=== PATIENT | male | born 1950 | race Caucasian/White ===

== ENCOUNTER → 2018-03-02 08:00 | Outpatient (CLI) | payer MEDICARE, OTHER, SELFPAY | PROVIDERS: PCP Emergency Medicine; Visit Provider Urology | DX: R97.20 Elevated prostate specific antigen [PSA] (principal); N52.9 Male erectile dysfunction, unspecified | CPT/HCPCS: 99213 ==

== ENCOUNTER 2018-08-24 14:25 | Outpatient (CLI) | payer MEDICARE, OTHER, SELFPAY ==
[2018-08-25 10:21] LABS: PSA, Diagnostic 5.7 ng/ml (0-4.5)
== END 2018-08-24 14:45 ==
PROVIDERS: PCP Emergency Medicine; Visit Provider Urology
DX: R97.20 Elevated prostate specific antigen [PSA] (principal)
CPT/HCPCS: 36415; 84153

== ENCOUNTER → 2018-09-01 07:49 | Outpatient (BNVA) | payer MEDICARE, OTHER, SELFPAY | PROVIDERS: PCP Emergency Medicine; Visit Provider Urology | DX: N52.9 Male erectile dysfunction, unspecified (principal); R97.20 Elevated prostate specific antigen [PSA]; I10 Essential (primary) hypertension | CPT/HCPCS: 99213 ==

== ENCOUNTER → 2018-09-29 14:15 | Outpatient (BNVA) | payer MEDICARE, OTHER, SELFPAY | PROVIDERS: PCP Emergency Medicine; Visit Provider Urology | DX: N52.9 Male erectile dysfunction, unspecified (principal) | CPT/HCPCS: 99212; 96372 ==

== ENCOUNTER → 2018-10-12 08:23 | Outpatient (BNVA) | payer MEDICARE, OTHER, SELFPAY | PROVIDERS: PCP Emergency Medicine; Visit Provider Urology | DX: N52.9 Male erectile dysfunction, unspecified (principal) | CPT/HCPCS: 99212 ==

== ENCOUNTER 2019-02-22 15:10 | Outpatient (CLI) | payer MEDICARE, OTHER, SELFPAY ==
[2019-02-24 10:59] LABS: PSA, Diagnostic 6.9 ng/ml (0-4.5)
== END 2019-02-22 15:30 ==
PROVIDERS: PCP Emergency Medicine; Visit Provider Urology
DX: R97.20 Elevated prostate specific antigen [PSA] (principal)
CPT/HCPCS: 36415; 84153

== ENCOUNTER 2019-04-27 10:29 | Outpatient (CLI) | payer MEDICARE, OTHER, SELFPAY ==
[2019-04-27 13:42] LABS: Anion Gap 7.8 mmol/L (3-11); BUN 24 mg/dL (7-18); CO2 28.2 mmol/L (21.0-32.0); CREATININE 1.34 mg/dL (0.70-1.30); Calcium 8.9 mg/dL (8.5-10.1); Chloride 109 mmol/L (98-107); Estimated GFR 53.01 (mL/min/1.73m2); Glucose 109 mg/dL (70-100); Potassium 4.5 mmol/L (3.5-5.1); Sodium 145 mmol/L (136-145)
== END 2019-04-27 10:49 ==
PROVIDERS: Nurse Practitioner; PCP Emergency Medicine; Visit Provider Emergency Medicine
DX: I10 Essential (primary) hypertension (principal)
CPT/HCPCS: 36415; 80048

== ENCOUNTER 2019-04-29 09:34 | Outpatient (CLI) | payer MEDICARE, OTHER, SELFPAY ==
--- NOTE | 2019-04-29 09:30 | DI.RAD_ITS ---
EXAM: XR TIB/FIB LT INDICATION: lump on left tibia M79.89. COMPARISON: No exams were available for comparison TECHNIQUE: 2D digital imaging was performed. FINDINGS: Three views were obtained. A BB marker is placed over the anterior mid tibia on the lateral view at the site of the patient's reported palpable abnormality. No bony or soft tissue abnormality seen. I f there is a clinical suspicion of a soft tissue mass additional evaluation with MRI would be recomme nded. IMPRESSION:
== END 2019-04-29 09:54 ==
PROVIDERS: PCP Emergency Medicine; Visit Provider Nurse Practitioner
DX: R22.42 Localized swelling, mass and lump, left lower limb; M79.89 Other specified soft tissue disorders
CPT/HCPCS: 73590

== ENCOUNTER 2019-08-26 10:46 | Outpatient (CLI) | payer MEDICARE, OTHER, SELFPAY ==
[2019-08-27 09:15] LABS: PSA, Diagnostic 5.9 ng/mL (0.0-4.5)
== END 2019-08-26 11:06 ==
PROVIDERS: Nurse Practitioner Gerontology; PCP Emergency Medicine; Visit Provider Urology
DX: R97.20 Elevated prostate specific antigen [PSA] (principal); N40.1 Benign prostatic hyperplasia with lower urinary tract symptoms; N13.8 Other obstructive and reflux uropathy
CPT/HCPCS: 36415; 84153

== ENCOUNTER → 2019-08-31 11:16 | Outpatient (BNVA) | payer MEDICARE, OTHER, SELFPAY | PROVIDERS: PCP Emergency Medicine; Referring Provider Emergency Medicine; Visit Provider Urology | DX: R97.20 Elevated prostate specific antigen [PSA] (principal); N52.9 Male erectile dysfunction, unspecified | CPT/HCPCS: 99213 ==

== ENCOUNTER 2020-02-11 10:54 | Emergency (ER) | payer MEDICARE, OTHER, SELFPAY ==
--- NOTE | 2020-02-11 11:00 | DI.CT_ITS ---
EXAM: MR BRAIN WO/W CLINICAL HISTORY: Confusion, likely brain metastasis. TECHNIQUE: Multiplanar multisequence MRI was performed. COMPARISON: No exams were available for comparison FINDINGS: Noncontrast cranial CT was performed followed by brain MRI without and with contrast administration. The cranial CT shows a masslike lesion of the right frontal lobe. Additionally white matter edema is noted in the left frontal lobe. High attenuation is noted superiorly and medially in the right fron faizan lobe, this could represent hemorrhage or calcification on CT but susceptibility weighted imaging on MRI shows no evidence of hemorrhage or calcification. There are low-attenuation areas seen CT in the right frontal lobe which are multicentric. These are noted to be fluid filled on MRI and are lik vernell to represent necrosis. There is marked edema noted in left frontal white matter T2 weighted and FLAIR MRI and there is incre ased signal also seen in the right caudate nucleus and in the corpus callosum anteriorly. Post contrast MR imaging is limited by motion artifact but shows multicentric rim-like enhancement in the right frontal lobe surrounding the areas of apparent necrosis with additional enhancement in the right caudate nucleus and to a lesser degree the corpus callosum with questionable minimal areas of enhancement in left frontal lobe of the linear nature. No additional enhancing lesions identified in the brain. The orbital and temporal bone structures appear intact. No abnormality of the pituitary seen. There is normal flow void in the delari-mc-[id number] vasculature. Diffusion-weighted imaging sh ows no evidence of infarction. IMPRESSION: Findings suggesting right frontal lobe neoplasm in extending across the corpus callosum to the left f rontal lobe with additional involvement of right caudate nucleus. Findings as described would be mos t consistent with glioblastoma. Other neoplastic disorders including lymphoma would have to be consi dered. Additionally, the possibility of infectious or inflammatory process is not absolutely exclude d on this examination but would be less likely. Please correlate clinically. Tissue sampling is ind icated for diagnosis. DATA REPOSITORY:
[2020-02-11 11:01] VITALS: BP 132/90; PULSE 64; RESP 16; O2SAT 95
--- NOTE | 2020-02-11 11:45 | DI.CT_ITS ---
EXAM: CT CHEST/ABD/PEL W TECHNIQUE: CT angiography of the chest, abdomen and pelvis was performed with bolus infusion of 125 cc of Omnipaque 350. Axial CT angiography was performed with multi-slice acquisition and multi-planar and/or 3D reconstruc tions. COMPARISON: No exams were available for comparison FINDINGS: The lungs are clear. No pleural effusion. No evidence of pulmonary embolic disease. No thoracic aort ic dissection. No evidence of pulmonary neoplasm.. No mediastinal or hilar adenopathy. Tracheobronc hial tree appears intact. Vascular clips are noted in left upper quadrant.. No focal hepatic or renal abnormality seen apart from a small hepatic cyst and multiple renal cysts.. Gallbladder and bile ducts are CT normal. Pancreas is unremarkable. Spleen shows unremarkable early arterial phase pattern of enhancement. No abdominal aortic aneurysm or dissection. Major branches of the abdominal aorta appear normal. No a bdominal or pelvic adenopathy. . No significant abdominal wall hernia. No focal bowel pathology. IMPRESSION: No evidence of neoplastic disease of the chest abdomen or pelvis. Incidental findings as described. RADIATION DOSE DELIVERED: Total DLP Total DLP DATA REPOSITORY: All CT scans at this facility are submitted to the National Radiology Data Registry (NRDR) Dose Index Registry (DIR) with the [employer] (ACR). RADIATION OPTIMIZATION: All CT scans at this facility use at least one of these dose optimization te chniques: automated exposure control; mA and/or kV adjustment per patient size (includes targeted exa ms where dose is matched to clinical indication); or iterative reconstruction.
[2020-02-11 11:50] LABS: Abs Immature Grans 0.01 k/cumm (0.0-0.09); Absolute Basophil Count 0.02 k/cumm (0.0-0.2); Absolute Eosinophil Count 0.15 k/cumm (0.0-0.7); Absolute Lymphocyte Count 1.44 k/cumm (1.2-3.4); Absolute Monocyte Count 0.37 k/cumm (0.11-0.7); Absolute Neutrophil Count 3.47 k/cumm (1.2-6.7); Basophils % 0.4; Eosinophils % 2.7; HCT 40.7 % (40.0-50.0); HGB 14.2 g/dL (13.5-17.5); Immature Grans % 0.2 %; Lymphocytes % 26.4; Mean Corp. HGB Concentration 34.9 g/dL (32.0-36.0); Mean Corpuscular Hemoglobin 31.3 pg (27.0-33.0); Mean Corpuscular Volume 89.8 fL (80-95); Mean Platelet Volume 11.6 fL (8.0-11.0); Monocytes % 6.8; Neutrophils % 63.5; Platelet Count 159 x1000/uL (130-400); RBC 4.53 m/cumm (4.50-6.00); RBC Distribution Width 12.5 % (11.8-14.1); White Blood Cell Count 5.46 k/cumm (4.4-10.8)
[2020-02-11 12:06] LABS: ALT 22 U/L (16-63); AST 22 U/L (15-37); Albumin 3.6 g/dL (3.4-5.0); Alkaline Phosphatase 66 U/L (46-116); Anion Gap 7.1 mmol/L (3-11); BUN 21 mg/dL (7-18); Bilirubin, Total 0.7 mg/dL (0.2-1.0); CO2 28.9 mmol/L (21.0-32.0); CREATININE 1.33 mg/dL (0.70-1.30); Calcium 9.3 mg/dL (8.5-10.1); Chloride 105 mmol/L (98-107); Estimated GFR 53.47 (mL/min/1.73m2); Glucose 120 mg/dL (74-106); Potassium 3.7 mmol/L (3.5-5.1); Sodium 141 mmol/L (136-145); Total Protein 6.6 g/dL (6.4-8.2)
[2020-02-11 12:15] LABS: Bilirubin Negative (Negative); Blood Negative (Negative); Clarity Clear (Clear); Glucose Negative (Negative); Ketones Negative (Negative); Leukocyte Esterase Negative (Negative); Nitrite Negative (Negative); Urobilinogen 0.2 EU/dL (Up TO 0.2); pH 5.5 (5-8)
[2020-02-11] MEDS: Gadoterate meglumine 20 ML VIAL IV (13:57)
[2020-02-11 14:12] VITALS: BP 161/109; RESP 16; O2SAT 100
[2020-02-11] MEDS: Omnipaque 350 MG/ML 100 ML BTL IJ (14:18)
[2020-02-11 14:23] VITALS: BP 159/115; O2SAT 99
--- NOTE | 2020-02-11 14:54 | W.ED.GENAD ---
Discharge Plan Disposition Patient Disposition: HOME Condition: Fair Discharge Details Chief Complaint: HeadInjury Clinical Impression: Brain mass Primary Care Provider: Sunday Orellana ED Provider: Clare Luther Home Meds and New Rx's Prescriptions: New dexamethasone 4 mg tablet 4 mg PO BID Qty: 14 RF: 0 Continued allopurinol 100 mg tablet 200 mg PO DAILY Qty: 180 RF: 4 amlodipine 5 mg tablet 5 mg PO DAILY Qty: 90 RF: 4 Fish Oil 1 EACH capsule 2 ea PO DAILY RF: 0 docusate sodium [Colace] 100 MG capsule 100 mg PO BID Qty: 60 RF: 12 hydrochlorothiazide 25 mg tablet 25 mg PO DAILY Qty: 90 RF: 3 atorvastatin [Lipitor] 20 mg tablet 20 mg PO QPM Qty: 90 RF: 1 multivitamin [Daily Value] 1 EACH tablet 1 ea PO DAILY RF: 0 aspirin [Aspir-81] 81 MG tablet,delayed release (DR/EC) 81 mg PO DAILY RF: 0 glucosamine-chondroitin [Osteo Bi-Flex] 1 EACH tablet 2 ea PO DAILY RF: 0 magnesium amino acid chelate 27 MG tablet 66 mg PO HS RF: 0 Discharge Instructions Instructions: Dexamethasone (By mouth) Additional Instructions: You have a brain mass noted on your imaging. This is likely what is causing your confusion. I have spoken with Dr. Walker at [facility] [place] He is a neurosurgeon and will be reaching out to you in the next 48 hours to discuss treatment options and the findings on imaging further. If you have any questions, please feel free to have him paged [phone] He has recommended that you take steroids as prescribed to help with swelling. You were given your dosing here for this evening, next dose will be tomorrow morning. If you develop fever/chills, seizure activity or other new/worsening symptoms please seek care urgently once again. Otherwise, please discuss further with Dr. Walker and follow-up as advised Referrals: Sunday Orellana, [Primary Care Provider] - Discharge Data Discharge Date/Time-TO BE ENTERED AT DEPARTURE: 02/11/20 17:00 Medical Decision Making <CHRIS Mullins - Last Filed: 02/12/20 08:18> 69-year-old gentleman presents for potential cognitive change, confusion, progressive over the past week or so. Here in the ER he is appropriate, neurologically intact, examination unremarkable. He is currently asymptomatic. Given the complaint of change of cognition associated with a potential trauma last week, will obtain head CT for further evaluation. CT read by radiology as a masslike lesion of the right frontal lobe. Additionally white matter edema is noted in the left frontal lobe. High attenuation is noted superiorly and medially in the right frontal lobe. I spoke with radiology, they are recommending an MRI with and without contrast of the brain for further evaluation. Concern for metastatic disease. Given this we will also obtain CT of the chest, abdomen, pelvis to see if we can find a primary source. Laboratory values here in the ER unremarkable for emergent process. I spoke with radiology regarding the CT of abdomen, pelvis, chest, negative. MRI of brain with and without contrast reveals findings suggesting right frontal lobe neoplasm extending across the corpus callosum to the left frontal lobe with additional involvement of right caudate nucleus. Most consistent with a glioblastoma. Other neoplastic disorder such as lymphoma will have to be considered. Infection or inflammatory process is not absolutely excluded but less likely. CT findings, MRI findings, laboratory findings all discussed with patient and family. Images were pushed to [facility] and I have a call placed to neurosurgery for consultation and possible transfer if they feel that this is indicated. At shift change, care signed out to CHRIS Luther with the work-up here in the ER complete, neurosurgery consultation through [facility] pending. Medical Records Medical records reviewed: Yes I reviewed the patient's medical records. Lab Data Lab results reviewed: Yes I reviewed the patient's lab results. Lab results narrative: Laboratory Tests Range/Units 02/11/20 02/11/20 02/11/20 11:40 11:40 12:05 WBC (4.4-10.8) k/cumm 5.46 RBC (4.50-6.00) m/cumm 4.53 Hgb (13.5-17.5) g/dL 14.2 Hct (40.0-50.0) % 40.7 MCV (80-95) fL 89.8 MCH (27.0-33.0) pg 31.3 MCHC (32.0-36.0) g/dL 34.9 RDW (11.8-14.1) % 12.5 Plt Count (130-400) x1000/uL 159 MPV (8.0-11.0) fL 11.6 H Immature Gran % % 0.2 Neutrophils % 63.5 Lymphocytes % 26.4 Monocytes % 6.8 Eosinophils % 2.7 Basophils % 0.4 Absolute Neutrophils (1.2-6.7) k/cumm 3.47 Absolute Lymphocytes (1.2-3.4) k/cumm 1.44 Absolute Monocytes (0.11-0.7) k/cumm 0.37 Absolute Eosinophils (0.0-0.7) k/cumm 0.15 Absolute Basophils (0.0-0.2) k/cumm 0.02 Sodium (136-145) mmol/L 141 Potassium (3.5-5.1) mmol/L 3.7 Chloride (98-107) mmol/L 105 Carbon Dioxide (21.0-32.0) mmol/L 28.9 Anion Gap (3-11) mmol/L 7.1 BUN (7-18) mg/dL 21 H Creatinine (0.70-1.30) mg/dL 1.33 H Estimated GFR/1.73 m2 (mL/min/1.73m2) 53.47 Glucose (74-106) mg/dL 120 H Calcium (8.5-10.1) mg/dL 9.3 Total Bilirubin (0.2-1.0) mg/dL 0.7 AST (15-37) U/L 22 ALT (16-63) U/L 22 Alkaline Phosphatase (46-116) U/L 66 Total Protein (6.4-8.2) g/dL 6.6 Albumin (3.4-5.0) g/dL 3.6 Urine Color (Yellow) Yellow Urine Clarity (Clear) Clear Urine pH (5-8) 5.5 Ur Specific [place] (1.005-1.025) 1.020 Urine Protein (Negative) mg/dL Negative Urine Ketones (Negative) mg/dL Negative Urine Blood (Negative) Negative Urine Nitrite (Negative) Negative Urine Bilirubin (Negative) Negative Urine Urobilinogen (Up TO 0.2) EU/dL 0.2 Ur Leukocyte Esterase (Negative) Negative Urine Glucose (Negative) mg/dL Negative <CHRIS Kohler - Last Filed: 02/11/20 21:37> Care transition to myself from Jeffery Suarez PA-C. Please see his initial note regarding history, presentation and exam. In brief, patient presents today for evaluation after being noted to be confused by family members. CT MRI was completed showing large intracranial mass. The time I assume care, consultation with neurosurgery is pending. Consulted with Dr. Walker, neurosurgeon. He reviewed the imaging and feels that this most consistent with high grade glioblastoma. He recommends close follow up. He advised that he will call patient this weekend to review imaging and next steps. He should expect phone call from Dr. Walkre in the next 2 days he did recommend . Dexamethasone 4mg BID until seen by them. Can hold off on seizure prophylaxis at this time. [phone] and ask to page neurosurgery if there are any questions. This is recommendations with the patient and his family. We discussed new/worsening symptoms that should prompt emergent evaluation once again. They are aware of the follow-up plan. All the questions and concerns were addressed in agreement this plan. Initial dose of dexamethasone given here. HPI <CHRIS Mullins - Last Filed: 02/12/20 08:18> General Mode of arrival: ambulatory. Date/Time Provider Initiated Documentation: 02/11/20 11:05. Limitations to Documentation: no limitations. Information obtained by: patient and family. HPI Narrative: This is a 69-year-old male with a history of BPH, diverticulosis, hypertension, GERD, gout, hematuria, hyperlipidemia, skin cancer, presents to the ER for progressive confusion going on for at least 1 week. He did have a accident last week where he tipped his lawnmower, jumped off, landing on his left shoulder. At that time he denied any other injury, specifically hitting his head. He was evaluated for his shoulder and feels as though that is fine. Patient reports that he was around his family last night and they have concerns about his memory. Patient is otherwise asymptomatic. Denies headache, visual changes, neck pain, chest pain, shortness of breath abdominal pain, nausea, vomiting, incontinence, change of bowel or bladder function, numbness, tingling, weakness in his extremities. Family reports that he appears to be more forgetful, less talkative, just not acting like his self. Related Data Home Medications Medication Instructions Recorded Confirmed aspirin [Aspir-81] 81 mg PO DAILY 11/04/12 02/11/20 glucosamine-chondroitin [Osteo 2 ea PO DAILY 11/04/12 02/11/20 Bi-Flex] magnesium amino acid chelate 66 mg PO HS 11/04/12 02/11/20 multivitamin [Daily Value] 1 ea PO DAILY 11/04/12 02/11/20 Fish Oil 2 ea PO DAILY 02/01/14 02/11/20 docusate sodium [Colace] 100 mg PO BID #60 tab-cap 01/16/16 02/11/20 hydrochlorothiazide 25 mg tablet 25 mg PO DAILY #90 tab 05/19/19 02/11/20 allopurinol 100 mg tablet 200 mg PO DAILY #180 tab-cap 08/11/19 02/11/20 amlodipine 5 mg tablet 5 mg PO DAILY #90 tab-cap 08/11/19 02/11/20 atorvastatin 20 mg tablet 20 mg PO QPM #90 tab 10/26/19 02/11/20 dexamethasone 4 mg PO BID #14 tab 02/11/20 Previous Rx's Medication Instructions Recorded hydrochlorothiazide 25 mg tablet 25 mg PO DAILY #90 tab 05/19/19 allopurinol 100 mg tablet 200 mg PO DAILY #180 tab-cap 08/11/19 amlodipine 5 mg tablet 5 mg PO DAILY #90 tab-cap 08/11/19 atorvastatin 20 mg tablet 20 mg PO QPM #90 tab 10/26/19 dexamethasone 4 mg PO BID #14 tab 02/11/20 Allergies Allergy/AdvReac Type Severity Reaction Status Date / Time No Known Allergies Allergy Verified 02/11/20 11:06 General Stated Complaint: HeadInjury JOSIE: 2 Review of Systems <CHRIS Mullins - Last Filed: 02/12/20 08:18> Constitutional Constitutional: Denies fatigue, Denies fever(s), Denies headache(s) and Denies weakness Eyes Eyes: Denies change in vision ENT Ears, Nose, Mouth, and Throat: Denies headache(s), Denies neck pain and Denies sore throat Cardiovascular Cardiovascular: Denies chest pain and Denies dyspnea Respiratory Respiratory: Denies cough and Denies dyspnea Gastrointestinal Gastrointestinal: Denies abdominal pain, Denies nausea and Denies vomiting Genitourinary Genitourinary: Denies dysuria Musculoskeletal Musculoskeletal: Denies back pain, Denies neck pain, Denies numbness and Denies tingling Integumentary/Breasts Skin/Breast: Denies rash Neurologic Neurologic: Denies headache(s), Denies numbness, Denies tingling and Denies weakness Endocrine Endocrine: Denies fatigue Hematologic/Lymphatic Hematologic/Lymphatic: Denies easy bleeding and Denies easy bruising PFSH <CHRIS Mullins - Last Filed: 02/12/20 08:18> Medical History Actinic keratitis (Acute 06/07/14) LEFT CONFUCIANISM/FOREHEAD Age-related macular degeneration (Acute) Allergic rhinitis (Acute) BPH w urinary obs/LUTS (Acute 03/01/16) Cataract (Acute) Cervical disc prolapse with radiculopathy (Acute) diskectomy/fusion 2000 Diverticulosis of colon without diverticulitis (Acute) Elevated PSA (Acute 03/01/16) Essential hypertension (Acute 09/30/13) Weight and alcohol dependent Family hx of prostate cancer (Acute) Gastroesophageal reflux disease (Acute) HH; LAP JOSH Gout (Acute) Hematuria, unspecified (Acute) History of tobacco use (Acute) Hyperlipidemia (Acute) Neoplasm of unspecified nature of bone, soft tissue, and skin (Resolved 08/07/15) Obesity (Acute) Shoulder pain (Acute) right; full thickness tear Squamous cell carcinoma in situ of skin (Acute 08/15/14) Squamous cell carcinoma of neck (Acute 06/07/14) DR. THORPE; RIGHT SIDE OF NECK; LEFT SIDE OF FOREHEAD Surgical History Appendectomy Correction, Hammertoe RIGHT nasal surgery left nasal polypoid lesion removed Vasectomy Family History Mother Stroke Father Heart disease Sister No problems noted. Sister No problems noted. Sister No problems noted. Sister No problems noted. Daughter No problems noted. Daughter No problems noted. Maternal Grandfather Edema Heart disease Paternal Grandfather , ACCIDENTAL at age 49. No problems noted. Paternal Grandmother No problems noted. Maternal Grandmother Stroke Social History Smoking/Tobacco Use Status: Former Tobacco Use Quit Date: 09/26/87 Alcohol Intake: current Alcohol Intake frequency: 0-2 drinks per day Alcohol type: beer, wine and hard liquor Drug use: Never Substance use type: does not use Caregiver/Support person: No Household members: spouse Pets and animals: No Do you think of yourself as: straight/heterosexual Duration: 45-60 minutes/day Frequency: 1-2 times per week Vanita/Pentecostal: Hindu Special vanita needs: No Do you feel safe at home: Yes Do you feel safe in your relationship?: Yes Exam <CHRIS Mullins - Last Filed: 02/12/20 08:18> Const General: cooperative, healthy appearing, comfortable and no acute distress Orientation: alert, awake and oriented x3 HENMT Head: normal to inspection, normocephalic and atraumatic Ears: hearing grossly normal bilaterally, external ears normal, TM's normal bilaterally and EAC's normal Face and sinus: normal facial exam Mouth: moist mucous membranes Throat: posterior oropharynx normal Eyes General: appearance normal, both eyes and all related structures Alignment and Position: alignment normal Periorbital: periorbital findings normal Eyelids: eyelids normal Conjunctivae: conjunctivae normal Sclera: sclerae normal Cornea: corneas normal Pupils: PERRL EOM: EOM intact bilaterally Direct ophthalmoscopy: normal light reflex Neck Neck: normal visual inspection, full ROM, no lymphadenopathy, no meningeal signs, trachea midline, supple and nontender Resp Effort & Inspection: normal respiratory effort and able to speak in complete sentences Auscultation: clear to auscultation bilaterally Cardio Rate: regular rate Rhythm: regular rhythm GI Inspection: normal to inspection Palpation: soft and nontender Auscultation: normal bowel sounds Back/Spine/Pelvis Back: No back tenderness Skin General skin exam: no rashes or lesions noted Neuro General: patient alert, patient awake, patient oriented x3, moves all extremities and no focal motor deficits Cranial Nerves: CN's II-XI intact bilaterally Cognition: normal cognition Speech: speech normal Gait: normal gait Motor: muscle tone normal throughout, strength 5/5 throughout, no pronator drift, no movement abnormalities noted and no fasciculations Sensory Exam: no sensory deficits noted Coordination: [id number] test normal and Does not sway with eyes open Extrem General: normal to inspection, full ROM, capillary refill normal, no pedal edema and no calf tenderness Psych Appearance: grossly normal Mental Status: mental status grossly normal Course <CHRIS Mullins - Last Filed: 02/12/20 08:18> Vital Signs Vital signs: Vital Signs Pulse 64 02/11/20 11:01 Respiratory Rate 16 02/11/20 11:01 Blood Pressure 132/90 02/11/20 11:01 Pulse Oximetry 95 02/11/20 11:01 Temperature Source Skin 02/11/20 11:01 Pulse 64 02/11/20 11:01 Respiratory Rate 16 02/11/20 14:12 Respiratory Effort 02/11/20 14:12 Respiratory Depth Normal 02/11/20 14:12 Respiratory Pattern Normal 02/11/20 14:12 Blood Pressure 159/115 H 02/11/20 14:23 Blood Pressure Mean 126 02/11/20 14:12 Blood Pressure Position Sitting 02/11/20 14:12 Pulse Oximetry 99 02/11/20 14:23 Oxygen Delivery Method Room Air 02/11/20 14:23 Oxygen Flow Rate 0 02/11/20 14:23 Pain Level 0 02/11/20 11:01 Comment 02/11/20 11:01 Lab/Test Results Lab/Test Results: Laboratory Tests Range/Units 02/11/20 02/11/20 02/11/20 11:40 11:40 12:05 WBC (4.4-10.8) k/cumm 5.46 RBC (4.50-6.00) m/cumm 4.53 Hgb (13.5-17.5) g/dL 14.2 Hct (40.0-50.0) % 40.7 MCV (80-95) fL 89.8 MCH (27.0-33.0) pg 31.3 MCHC (32.0-36.0) g/dL 34.9 RDW (11.8-14.1) % 12.5 Plt Count (130-400) x1000/uL 159 MPV (8.0-11.0) fL 11.6 H Immature Gran % % 0.2 Neutrophils % 63.5 Lymphocytes % 26.4 Monocytes % 6.8 Eosinophils % 2.7 Basophils % 0.4 Absolute Neutrophils (1.2-6.7) k/cumm 3.47 Absolute Lymphocytes (1.2-3.4) k/cumm 1.44 Absolute Monocytes (0.11-0.7) k/cumm 0.37 Absolute Eosinophils (0.0-0.7) k/cumm 0.15 Absolute Basophils (0.0-0.2) k/cumm 0.02 Sodium (136-145) mmol/L 141 Potassium (3.5-5.1) mmol/L 3.7 Chloride (98-107) mmol/L 105 Carbon Dioxide (21.0-32.0) mmol/L 28.9 Anion Gap (3-11) mmol/L 7.1 BUN (7-18) mg/dL 21 H Creatinine (0.70-1.30) mg/dL 1.33 H Estimated GFR/1.73 m2 (mL/min/1.73m2) 53.47 Glucose (74-106) mg/dL 120 H Calcium (8.5-10.1) mg/dL 9.3 Total Bilirubin (0.2-1.0) mg/dL 0.7 AST (15-37) U/L 22 ALT (16-63) U/L 22 Alkaline Phosphatase (46-116) U/L 66 Total Protein (6.4-8.2) g/dL 6.6 Albumin (3.4-5.0) g/dL 3.6 Urine Color (Yellow) Yellow Urine Clarity (Clear) Clear Urine pH (5-8) 5.5 Ur Specific [place] (1.005-1.025) 1.020 Urine Protein (Negative) mg/dL Negative Urine Ketones (Negative) mg/dL Negative Urine Blood (Negative) Negative Urine Nitrite (Negative) Negative Urine Bilirubin (Negative) Negative Urine Urobilinogen (Up TO 0.2) EU/dL 0.2 Ur Leukocyte Esterase (Negative) Negative Urine Glucose (Negative) mg/dL Negative Sign Out <CHRIS Mullins - Last Filed: 02/12/20 08:18> Sign Out Data: Sign Out Comment: MRI with likely neoplasm of the brain. Pending neurosurgery consultation at [facility] Last updated by Cory Suarez PA at 02/11/20 16:04
[2020-02-11 15:45] VITALS: BP 149/92; RESP 17; O2SAT 99
[2020-02-11] MEDS: Dexamethasone 4 MG TAB PO (16:53)
== END 2020-02-11 17:00 | disposition home or self-care (01) ==
PROVIDERS: Physician Assistant; Emergency Provider Physician Assistant; PCP Emergency Medicine
DX: R41.0 Disorientation, unspecified (principal); R90.0 Intracranial space-occupying lesion found on diagnostic imaging of central nervous system; I10 Essential (primary) hypertension
CPT/HCPCS: 36415; 70553; 74177; 80053; 99285; 70450; 71260; 81003; 85025; J3490; J8540

== ENCOUNTER 2020-03-03 01:55 | Outpatient (CLI) | payer MEDICARE, OTHER, SELFPAY ==
[2020-03-06 09:51] LABS: PSA, Diagnostic 12.2 ng/mL (0.0-4.5)
== END 2020-03-03 02:15 ==
PROVIDERS: Urology; PCP Emergency Medicine; Visit Provider Emergency Medicine
DX: R97.20 Elevated prostate specific antigen [PSA] (principal)
CPT/HCPCS: 36415; 84153

== ENCOUNTER 2020-03-03 14:35 | Outpatient (CLI) | payer MEDICARE, OTHER, SELFPAY ==
[2020-03-03 15:06] LABS: Abs Immature Grans 0.24 10^3/uL (0.0-0.06); Absolute Basophil Count 0.01 10^3/uL (0.0-0.2); Absolute Eosinophil Count 0.04 10^3/uL (0.0-0.7); Basophils % 0.1; Eosinophils % 0.3; HCT 38.5 % (40.0-50.0); HGB 12.8 g/dL (13.5-17.5); Immature Grans % 1.8; Lymphocytes % 11.9; MCH 30.7 pg (27.0-33.0); MCHC 33.2 % (32.0-36.0); MCV 92.3 fL (80-95); Monocytes % 4.6; Neutrophils % 81.3; Nucleated RBC 0 %; Platelet Count 130 10^3/uL (130-400); RBC 4.17 10^6/uL (4.36-5.78); RDW 12.1 % (11.8-14.1); RDW-SD 41.1 fL; WBC 13.16 10^3/uL (4.4-10.8)
[2020-03-03 15:08] LABS: Absolute Lymphocyte Count 1.57 10^3/uL (1.2-3.4); Absolute Monocyte Count 0.61 10^3/uL (0.1-0.8)
== END 2020-03-03 14:55 ==
PROVIDERS: PCP Emergency Medicine
DX: C71.9 Malignant neoplasm of brain, unspecified (principal); D69.6 Thrombocytopenia, unspecified; R97.20 Elevated prostate specific antigen [PSA]
CPT/HCPCS: 36415; 84153; 85025

== ENCOUNTER 2020-03-10 03:38 | Outpatient (CLI) | payer MEDICARE, OTHER, SELFPAY ==
[2020-03-10 09:40] LABS: Abs Immature Grans 0.09 10^3/uL (0.0-0.06); Absolute Basophil Count 0.03 10^3/uL (0.0-0.2); Absolute Eosinophil Count 0.14 10^3/uL (0.0-0.7); Absolute Lymphocyte Count 1.32 10^3/uL (1.2-3.4); Absolute Neutrophil Count 5.08 10^3/uL (1.2-6.7); Basophils % 0.4; HCT 36.8 % (40.0-50.0); HGB 12.6 g/dL (13.5-17.5); Immature Grans % 1.3; Lymphocytes % 18.7; MCH 31.1 pg (27.0-33.0); MCHC 34.2 % (32.0-36.0); MCV 90.9 fL (80-95); Monocytes % 5.7; Neutrophils % 71.9; Nucleated RBC 0 %; Platelet Count 166 10^3/uL (130-400); RBC 4.05 10^6/uL (4.36-5.78); RDW 12.1 % (11.8-14.1); WBC 7.06 10^3/uL (4.4-10.8)
== END 2020-03-10 03:58 ==
PROVIDERS: PCP Emergency Medicine; Visit Provider Internal Medicine
DX: C71.9 Malignant neoplasm of brain, unspecified (principal); D69.6 Thrombocytopenia, unspecified
CPT/HCPCS: 36415; 85025

== ENCOUNTER 2020-03-16 12:33 | Outpatient (CLI) | payer MEDICARE, OTHER, SELFPAY ==
[2020-03-16 14:40] LABS: Abs Immature Grans 0.06 10^3/uL (0.0-0.06); Absolute Basophil Count 0.02 10^3/uL (0.0-0.2); Absolute Eosinophil Count 0.25 10^3/uL (0.0-0.7); Absolute Lymphocyte Count 1.79 10^3/uL (1.2-3.4); Absolute Monocyte Count 0.48 10^3/uL (0.1-0.8); Absolute Neutrophil Count 3.58 10^3/uL (1.2-6.7); Basophils % 0.3; HCT 35.3 % (40.0-50.0); HGB 11.9 g/dL (13.5-17.5); MCH 30.7 pg (27.0-33.0); MCHC 33.7 % (32.0-36.0); MCV 91.2 fL (80-95); MPV 10.6 fL (8.0-11.0); Monocytes % 7.8; Neutrophils % 57.9; Nucleated RBC 0 %; Platelet Count 192 10^3/uL (130-400); RBC 3.87 10^6/uL (4.36-5.78); RDW 12.2 % (11.8-14.1); RDW-SD 39.9 fL; WBC 6.18 10^3/uL (4.4-10.8)
== END 2020-03-16 12:53 ==
PROVIDERS: PCP Emergency Medicine; Visit Provider Emergency Medicine
DX: C71.9 Malignant neoplasm of brain, unspecified (principal); D69.6 Thrombocytopenia, unspecified
CPT/HCPCS: 36415; 85025

== ENCOUNTER 2020-03-23 04:29 | Outpatient (CLI) | payer MEDICARE, OTHER, SELFPAY ==
[2020-03-23 12:38] LABS: Abs Immature Grans 0.11 10^3/uL (0.0-0.06); Absolute Basophil Count 0.02 10^3/uL (0.0-0.2); Absolute Eosinophil Count 0.03 10^3/uL (0.0-0.7); Absolute Lymphocyte Count 0.96 10^3/uL (1.2-3.4); Absolute Monocyte Count 0.27 10^3/uL (0.1-0.8); Absolute Neutrophil Count 8.16 10^3/uL (1.2-6.7); Basophils % 0.2; Eosinophils % 0.3; HCT 34.7 % (40.0-50.0); HGB 12.2 g/dL (13.5-17.5); Immature Grans % 1.2; Lymphocytes % 10.1; MCH 31.1 pg (27.0-33.0); MCHC 35.2 % (32.0-36.0); MCV 88.5 fL (80-95); MPV 11.2 fL (8.0-11.0); Monocytes % 2.8; Neutrophils % 85.4; Nucleated RBC 0 %; Platelet Count 178 10^3/uL (130-400); RBC 3.92 10^6/uL (4.36-5.78); RDW 12.5 % (11.8-14.1); RDW-SD 39.1 fL; WBC 9.55 10^3/uL (4.4-10.8)
== END 2020-03-23 04:49 ==
PROVIDERS: PCP Emergency Medicine; Visit Provider Internal Medicine
DX: C71.9 Malignant neoplasm of brain, unspecified (principal); D69.6 Thrombocytopenia, unspecified
CPT/HCPCS: 36415; 85025

== ENCOUNTER 2020-03-30 04:13 | Outpatient (CLI) | payer MEDICARE, OTHER, SELFPAY ==
[2020-03-30 12:51] LABS: Abs Immature Grans 0.23 10^3/uL (0.0-0.06); Absolute Basophil Count 0.03 10^3/uL (0.0-0.2); Absolute Lymphocyte Count 0.98 10^3/uL (1.2-3.4); Absolute Monocyte Count 0.21 10^3/uL (0.1-0.8); Absolute Neutrophil Count 9.19 10^3/uL (1.2-6.7); Basophils % 0.3; HCT 36.8 % (40.0-50.0); HGB 12.6 g/dL (13.5-17.5); Immature Grans % 2.2; Lymphocytes % 9.2; MCH 31.1 pg (27.0-33.0); MCHC 34.2 % (32.0-36.0); MCV 90.9 fL (80-95); MPV 11.9 fL (8.0-11.0); Neutrophils % 86.3; Nucleated RBC 0 %; Platelet Count 162 10^3/uL (130-400); RBC 4.05 10^6/uL (4.36-5.78); RDW 13.1 % (11.8-14.1); WBC 10.64 10^3/uL (4.4-10.8)
== END 2020-03-30 04:33 ==
PROVIDERS: PCP Emergency Medicine; Visit Provider Internal Medicine
DX: C71.9 Malignant neoplasm of brain, unspecified (principal); D69.6 Thrombocytopenia, unspecified
CPT/HCPCS: 36415; 85025

== ENCOUNTER 2020-04-06 02:33 | Outpatient (CLI) | payer MEDICARE, OTHER, SELFPAY ==
--- NOTE | 2020-04-06 | DI.US_ITS ---
EXAM: US EXTREMITY VENOUS BI CLINICAL HISTORY: H/O GLIOBLASTOMA, H/O BILAT DVT,POST IVC,RE-EVALUATE,I82.5Y3,C71.9. TECHNIQUE: Bilateral lower extremity venous ultrasound performed using grayscale, color-flow, and sp ectral Doppler analysis. COMPARISON: No exams were available for comparison FINDINGS: Right lower extremity: Thrombus is visualized extending from the mid femoral vein through 1 of the br anched posterior tibial veins. The peroneal veins also show thrombosis. The saphenous vein is free of thrombus. Left lower extremity: Thrombus is visualized in 1 of the peroneal veins distally. The remainder of t he deep venous system is well as the saphenous vein are free of thrombus. The thrombus measures appr oximately 3 cm in length. IMPRESSION: Right: Deep venous thrombosis from the mid femoral vein through 1 of the posterior tibial veins. Left: Small deep venous thrombosis in 1 peroneal vein distally DATA REPOSITORY:
--- NOTE | 2020-04-06 | DI.CT_ITS ---
EXAM: CT HEAD WO CLINICAL HISTORY: H/O GLIOBLASTOMA, C71.9,PRIOR TO AC, ? BLEED. TECHNIQUE: Imaging Protocol: Axial computed tomography images with coronal and sagittal reformatted images were created and reviewed COMPARISON: CT CT HEAD WO from 02/11/2020 MR MR BRAIN WO/W from 02/11/2020 FINDINGS: A right frontal craniotomy defect is now seen. A portion of the right frontal lobe has been resected . There is a small crescentic collection adjacent to the right frontal skull. High density material is again noted superiorly in the right frontal lobe. There is a stable low-density lesion in the up per right frontal lobe. There is also stable abnormal edema in the left frontal lobe. There is no e vidence of an acute hemorrhage or infarct. Orbits, sinuses and mastoid air cells are unremarkable. IMPRESSION: Status post resection a portion of the right frontal lobe mass. Stable high density material superio rly. Stable white matter edema in the left frontal lobe. RADIATION DOSE DELIVERED: Total DLP DATA REPOSITORY: All CT scans at this facility are submitted to the National Radiology Data Registry (NRDR) Dose Index Registry (DIR) with the [employer] (ACR). RADIATION OPTIMIZATION: All CT scans at this facility use at least one of these dose optimization te chniques: automated exposure control; mA and/or kV adjustment per patient size (includes targeted exa ms where dose is matched to clinical indication); or iterative reconstruction.
== END 2020-04-06 02:53 ==
PROVIDERS: PCP Emergency Medicine; Visit Provider Internal Medicine
DX: C71.9 Malignant neoplasm of brain, unspecified (principal); Z98.890 Other specified postprocedural states; I82.5Y3 Chronic embolism and thrombosis of unspecified deep veins of proximal lower extremity, bilateral; D69.6 Thrombocytopenia, unspecified
CPT/HCPCS: 36415; 70450; 85025; 93970

== ENCOUNTER 2020-04-06 02:54 | Outpatient (CLI) | payer MEDICARE, OTHER, SELFPAY ==
[2020-04-06 13:50] LABS: Abs Immature Grans 0.28 10^3/uL (0.0-0.06); Absolute Basophil Count 0.03 10^3/uL (0.0-0.2); Absolute Eosinophil Count 0.01 10^3/uL (0.0-0.7); Absolute Lymphocyte Count 0.93 10^3/uL (1.2-3.4); Absolute Monocyte Count 0.29 10^3/uL (0.1-0.8); Absolute Neutrophil Count 9.15 10^3/uL (1.2-6.7); Basophils % 0.3; Eosinophils % 0.1; HCT 35.4 % (40.0-50.0); HGB 12.4 g/dL (13.5-17.5); Immature Grans % 2.6; Lymphocytes % 8.7; MCH 31.1 pg (27.0-33.0); MCV 88.7 fL (80-95); MPV 12.5 fL (8.0-11.0); Monocytes % 2.7; Neutrophils % 85.6; Nucleated RBC 0 %; Platelet Count 154 10^3/uL (130-400); RBC 3.99 10^6/uL (4.36-5.78); RDW 13.2 % (11.8-14.1); RDW-SD 42.8 fL; WBC 10.69 10^3/uL (4.4-10.8)
== END 2020-04-06 03:14 ==
PROVIDERS: PCP Emergency Medicine; Visit Provider Internal Medicine
DX: D69.6 Thrombocytopenia, unspecified (principal); C71.9 Malignant neoplasm of brain, unspecified
CPT/HCPCS: 36415; 85025

== ENCOUNTER 2020-04-13 04:19 | Outpatient (CLI) | payer MEDICARE, OTHER, SELFPAY ==
[2020-04-13 13:50] LABS: Absolute Basophil Count 0.02 10^3/uL (0.0-0.2); Absolute Eosinophil Count 0.01 10^3/uL (0.0-0.7); Absolute Lymphocyte Count 0.75 10^3/uL (1.2-3.4); Absolute Monocyte Count 0.32 10^3/uL (0.1-0.8); Basophils % 0.2; Eosinophils % 0.1; HCT 38.3 % (40.0-50.0); HGB 13.2 g/dL (13.5-17.5); Immature Grans % 1.7; Lymphocytes % 6.3; MCH 31.2 pg (27.0-33.0); MCHC 34.5 % (32.0-36.0); MCV 90.5 fL (80-95); Monocytes % 2.7; Nucleated RBC 0 %; Platelet Count 147 10^3/uL (130-400); RBC 4.23 10^6/uL (4.36-5.78); RDW 13.1 % (11.8-14.1); RDW-SD 42.7 fL; WBC 11.89 10^3/uL (4.4-10.8)
[2020-04-13 13:53] LABS: Absolute Neutrophil Count 10.58 10^3/uL (1.2-6.7)
== END 2020-04-13 04:39 ==
PROVIDERS: PCP Emergency Medicine; Visit Provider Internal Medicine
DX: C71.9 Malignant neoplasm of brain, unspecified (principal)
CPT/HCPCS: 36415; 85025

== ENCOUNTER 2020-04-24 17:09 | Emergency (ER) | payer MEDICARE, OTHER, SELFPAY ==
--- NOTE | 2020-04-24 17:15 | ED.GENADUL_ITS ---
Discharge Plan Disposition Patient Disposition: HOME Condition: Good Discharge Details Clinical Impression: Facial laceration, Abrasion of face, Contusion of face Primary Care Provider: Sunday Orellana ED Provider: Clare Luther Home Meds and New Rx's Prescriptions: Continued allopurinol 100 mg tablet 200 mg PO DAILY Qty: 180 RF: 4 amlodipine 5 mg tablet 5 mg PO DAILY Qty: 90 RF: 4 multivitamin [Daily Value] 1 EACH tablet 1 ea PO DAILY RF: 0 aspirin [Aspir-81] 81 MG tablet,delayed release (DR/EC) 81 mg PO DAILY RF: 0 magnesium amino acid chelate 27 MG tablet 66 mg PO HS RF: 0 sennosides [senna] 8.6 mg Tablet 17.2 mg PO QHS RF: 0 atorvastatin [Lipitor] 10 mg Tablet 10 mg PO DAILY RF: 0 sulfamethoxazole-trimethoprim [Bactrim DS] 800-160 mg Tablet See Rx Instructions .ROUTE .COMPLEX RF: 0 ondansetron 8 mg Tablet,Disintegrating 8 mg PO Q8H RF: 0 pantoprazole 40 mg Tablet,Delayed Release (Dr/Ec) 40 mg PO DAILY RF: 0 dexamethasone 4 mg tablet 4 mg PO DAILY RF: 0 hydrochlorothiazide 25 mg tablet 12.5 mg PO DAILY RF: 0 thiamine HCl (vitamin B1) 100 mg Tablet 100 mg PO DAILY RF: 0 Discharge Instructions Instructions: Skin Adhesive Care (ED), Facial Laceration (ED) Additional Instructions: Keep wound clean and dry. Please allow the adhesive to come off naturally. Do not pick or pull at this. Do not apply any ointment over this as it may cause it to breakdown prematurely. You may apply ice to the area of swelling. Please monitor for signs of infection getting redness, warmth, drainage, increased pain, fever/chills. Develop these or other new/worsening symptoms please seek care urgently once again. Otherwise, please follow-up with your primary care in 1 week for reevaluation. Referrals: Sunday Orellana DO [Primary Care Provider] - Discharge Data Discharge Date/Time-TO BE ENTERED AT DEPARTURE: 04/24/20 18:55 Medical Decision Making Patient is a pleasantly confused 70-year-old male presented with chief complaint of laceration to the right side of his face. He reports that prior to arrival he was bent over picking up a piece of paper when he toppled forward and struck the right side of his face against asphalt. Patient suffered abrasion to the right side of the inferior orbit as well as laceration inferior to the right lateral aspect of the eyebrow. Patient does have history of recently diagnosed right frontal lobe mass which was surgically extracted a few months ago. Patient has been doing well in the postoperative period. He is not anticoagulated. Has been having confusion but family reports he is been doing well recently. On exam, patient has fairly normal neurologic exam aside from his baseline confusion. He does have a 1.5 cm curvilinear laceration lateral to the right eyebrow. I believe that this can be cleaned and closed with adhesive. Abrasions under the right eye appears superficial without need for closure. However, he is point tender over this area. Extraoculars are intact to suggest no entrapment. He does have a good bite on the right side and no maxillary instability. However, I do feel that imaging would be appropriate particular the patient's recent surgery to evaluate for any potential intracranial bleeding as well as orbital fracture. FINDINGS: Orbits: The bony margins of both orbits are intact with no orbital fractures identified. Both globes appear intact. Bones/joints: The mandible is not imaged in its entirety with no fracture detected involving the vertical mandibular rami at the levels imaged. No other acute facial bone fractures are seen. Paranasal sinuses: Postsurgical changes seen related previous bilateral infundibulotomies. There is focal opacification of 1 of the posterior left-sided ethmoid air cells with other paranasal sinuses grossly clear throughout. Soft tissues: Edema/ecchymosis is seen involving the skin and subcutaneous soft tissues overlying the right malar eminence and along the inferolateral margin of the right orbit. IMPRESSION: Soft tissue swelling overlying the right malar eminence/inferolateral margin of the right orbit with no underlying fracture detected. Discussed these findings with the patient and his . We did discuss care of laceration. He does continue to have some minimal bleeding after washing the wound to the laceration. We therefore discussed closure options. There is a fairly small wound and wound edges reapproximated easily. Adhesive would be good safe option for this patient. I discussed her/benefits well expected procedural steps with the patient and his significant other. They voiced understanding and wished to proceed. This is performed using standard sterile technique. Please see procedure notes. Patient tolerated this well. Abrasion under the right eye was also cleansed. We did discuss expected course of healing. We discussed care of adhesive. Return precautions were given. Encourage close follow-up with primary care. All of their questions and concerns were addressed in agreement this plan. HPI General Mode of arrival: ambulatory . Date/Time Provider Initiated Documentation: 04/24/20 17:13 . Limitations to Documentation: altered mental status (patient is confused at baseline) . Information obtained by: patient, family and RN notes reviewed . History of Present Illness 70 year old M presents to the emergency department with the chief complaint of fall when bending over, struck right side of head, described as moderate, with intensity rated at 6. Quality is described as aching, and is localized to the face. Patient reports no radiation. Patient started experiencing this minute(s) and it has been constant. No relieving factors improve symptom(s), No exacerbating factors reported . Patient notes no other symptoms. and confusion (baseline and unchanged per family report). Patient did receive the following treatments prior to arrival, none Related Data Home Medications Medication Instructions Recorded Confirmed aspirin [Aspir-81] 81 mg PO DAILY 11/04/12 04/24/20 magnesium amino acid chelate 66 mg PO HS 11/04/12 02/11/20 multivitamin [Daily Value] 1 ea PO DAILY 11/04/12 04/24/20 allopurinol 100 mg tablet 200 mg PO DAILY #180 tab-cap 08/11/19 04/24/20 amlodipine 5 mg tablet 5 mg PO DAILY #90 tab-cap 08/11/19 04/24/20 atorvastatin [Lipitor] 10 mg PO DAILY 04/24/20 04/24/20 dexamethasone 4 mg PO DAILY 04/24/20 04/24/20 hydrochlorothiazide 12.5 mg PO DAILY 04/24/20 04/24/20 ondansetron 8 mg PO Q8H 04/24/20 04/24/20 pantoprazole 40 mg PO DAILY 04/24/20 04/24/20 sennosides [senna] 17.2 mg PO QHS 04/24/20 04/24/20 sulfamethoxazole-trimethoprim See Rx Instructions .ROUTE .COMPLEX 04/24/20 04/24/20 [Bactrim DS] thiamine HCl (vitamin B1) 100 mg PO DAILY 04/24/20 04/24/20 Previous Rx's Medication Instructions Recorded allopurinol 100 mg tablet 200 mg PO DAILY #180 tab-cap 08/11/19 amlodipine 5 mg tablet 5 mg PO DAILY #90 tab-cap 08/11/19 Allergies Allergy/AdvReac Type Severity Reaction Status Date / Time No Known Allergies Allergy Verified 02/11/20 11:06 General JOSIE: 2 Review of Systems Unobtainable due to mental status PFS Medical History Actinic keratitis (06/07/14) LEFT ORTHODOXY/FOREHEAD Age-related macular degeneration Allergic rhinitis 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 THORPE; RIGHT SIDE OF NECK; LEFT SIDE OF FOREHEAD Surgical History Appendectomy Correction, Hammertoe RIGHT nasal surgery left nasal polypoid lesion removed Vasectomy Family History Mother Stroke Father Heart disease Sister No problems noted. Sister No problems noted. Sister No problems noted. Sister No problems noted. Daughter No problems noted. Daughter No problems noted. Maternal Grandfather Edema Heart disease Paternal Grandfather , ACCIDENTAL at age 49. No problems noted. Paternal Grandmother No problems noted. Maternal Grandmother Stroke Social History Smoking/Tobacco Use Status: Former Tobacco Use Quit Date: 09/26/87 Alcohol Intake: current Alcohol Intake frequency: 0-2 drinks per day Alcohol type: beer, wine and hard liquor Drug use: Never Substance use type: does not use Caregiver/Support person: No Household members: spouse Pets and animals: No Do you think of yourself as: straight/heterosexual Duration: 45-60 minutes/day Frequency: 1-2 times per week Vanita/Presybeterian: Jainism Special vanita needs: No Do you feel safe at home: Yes Do you feel safe in your relationship?: Yes Exam Const General: cooperative, healthy appearing, comfortable, no acute distress, well developed and well groomed Nutritional Appearance: average body habitus and well nourished Orientation: alert, awake, oriented to person and oriented to place [facility] Head: normal to inspection, no palpable skull fracture and normocephalic Head images: 1. 1cm curvilinear laceration 2. area of ecchymosis and swelling. tender to palpation. EOM intact Ears: hearing grossly normal bilaterally, external ears normal and TM's normal bilaterally General nose exam: external nose normal Face and sinus: no crepitus, ecchymosis, no maxillary instability and tenderness Mouth: oral mucosae normal, lip normal and tongue normal Teeth and gingiva: dentition normal and gingiva normal Throat: posterior oropharynx normal Eyes General: appearance normal, both eyes and all related structures Visual Mclean: normal visual mclean by confrontation Alignment and Position: alignment normal Periorbital: periorbital findings normal Eyelids: eyelids normal Conjunctivae: conjunctivae normal Pupils: PERRL EOM: EOM intact bilaterally Neck Neck: normal visual inspection, full ROM, no lymphadenopathy, no meningeal signs, trachea midline and supple Chest Chest: normal inspection of the chest, normal palpation of entire chest wall, no crepitus and no localized rib tenderness Resp Effort & Inspection: normal respiratory effort, able to speak in complete sentences and no respiratory distress Auscultation: clear to auscultation bilaterally, no rales, no rhonchi and no wheezes Cardio Rate: regular rate Rhythm: regular rhythm Heart Sounds: S1 normal and S2 normal GI Inspection: normal to inspection, no abdominal wall ecchymosis, no edema and non-distended Palpation: soft, no hepatosplenomegaly, not firm, no guarding, no pulsatile masses, not rigid and nontender Auscultation: normal bowel sounds Back/Spine/Pelvis Back: no CVA tenderness Cervical Spine: normal cervical lordosis and cervical ROM normal Thoracic/Lumbar Spine: thoracic and lumbar spine normal to inspection, thoraco- lumbar ROM normal, No thoraco-lumbar ROM limited, No thoraco-lumbar spasm and No thoracic spinal tenderness Pelvis: no pain with anterior-posterior compression and no pain with lateral compression Skin General skin exam: ecchymosis Trauma: abrasion and laceration Neuro General: patient alert, patient awake, oriented Patient Orientation: Person and Place, gait normal, tone normal and moves all extremities Cranial Nerves: CN's II-XI intact bilaterally Cognition: normal cognition Speech: speech normal Gait: normal gait Motor: muscle tone normal throughout and strength 5/5 throughout Sensory Exam: no sensory deficits noted (no saddle paresthesias) Extrem General: normal to inspection, full ROM, capillary refill normal, no pedal edema and no calf tenderness Psych Appearance: grossly normal and well kempt Mental Status: mental status grossly normal Speech and Movement: speech and movement normal Procedures Laceration Laceration 1: Site: face Side (If applicable): right Size (cm): 1.5 Description: linear (curvilinear) Depth: simple, single layer Pre-repair: wound explored and irrigated extensively Skin layer closed with: other (adhesive)
--- NOTE | 2020-04-24 17:15 | DI.CT_ITS ---
EXAM: CT HEAD ORBITS WO CLINICAL HISTORY: fall, right inferior orbital tenderness, H/O RESECTION FOR MASS TECHNIQUE: Imaging Protocol: Axial computed tomography images with coronal and sagittal reformatted images were created and reviewed COMPARISON: CT CT HEAD WO from 04/06/2020 FINDINGS: CT Head: Ventricles and Extra axial spaces: Normal in size and morphology for the patient's age. Hemorrhage: None. Cerebral parenchyma: Right frontal encephalomalacia. High-density material and a rounded, cystic are a in the medial high right frontal lobe. Edema is again noted in the medial left frontal lobe. No a cute hemorrhage or infarct is seen. Midline shift: None. Brainstem/Cerebellum: Normal. Calvarium: Right frontal craniotomy Visualized Paranasal sinuses/Mastoids: Clear. Soft Tissues: Soft tissue swelling over the right malar eminence CT Face: Facial Bones: No definite fracture is noted in facial bones. Sinuses and Mastoids: Resection of the medial cheung of the maxillary sinuses. No air-fluid levels. Globes, extraocular muscles, optic nerves and retrobulbar fat: Normal. Upper aerodigestive tract: Normal. Mandible and bilateral temporomandibular joints: Normal. Soft tissues: Soft tissue swelling over the right malar eminence. IMPRESSION: 1. Stable appearance of right frontal encephalomalacia and right frontal mass. No acute intracranial process. 2. Soft tissue swelling over the right malar eminence. No acute facial fracture. Previous sinus carly keisha. RADIATION DOSE DELIVERED: 1,148.08mGy.cm Total DLP DATA REPOSITORY: All CT scans at this facility are submitted to the National Radiology Data Registry (NRDR) Dose Index Registry (DIR) with the [employer] ([employer]). RADIATION OPTIMIZATION: All CT scans at this facility use at least one of these dose optimization te chniques: automated exposure control; mA and/or kV adjustment per patient size (includes targeted exa ms where dose is matched to clinical indication); or iterative reconstruction.
[2020-04-24 17:16] VITALS: BP 113/79; PULSE 103; RESP 18; TEMP 36.5; O2SAT 96
--- NOTE | 2020-04-24 18:20 | DI.VRAD_ITS ---
PROCEDURE INFORMATION: Exam: CT Maxillofacial Without Contrast Exam date and time: 04/24/2020 5:30 PM Age: 70 years old Clinical indication: Injury or trauma; Blunt trauma (contusions or hematomas); Consciousness not specified; Initial encounter; Orbit/periorbital; Injury date: 04/24/20; Patient HX: Fall, right inferior orbital tenderness; Additional info: Frontal lobe resection for mass done 02/19/20 TECHNIQUE: Imaging protocol: Computed tomography images of the face without contrast. Radiation optimization: All CT scans at this facility use at least one of these dose optimization techniques: automated exposure control; mA and/or kV adjustment per patient size (includes targeted exams where dose is matched to clinical indication); or iterative reconstruction. COMPARISON: No relevant prior studies available. FINDINGS: Orbits: The bony margins of both orbits are intact with no orbital fractures identified. Both globes appear intact. Bones/joints: The mandible is not imaged in its entirety with no fracture detected involving the vertical mandibular rami at the levels imaged. No other acute facial bone fractures are seen. Paranasal sinuses: Postsurgical changes seen related previous bilateral infundibulotomies. There is focal opacification of 1 of the posterior left-sided ethmoid air cells with other paranasal sinuses grossly clear throughout. Soft tissues: Edema/ecchymosis is seen involving the skin and subcutaneous soft tissues overlying the right malar eminence and along the inferolateral margin of the right orbit. IMPRESSION: Soft tissue swelling overlying the right malar eminence/inferolateral margin of the right orbit with no underlying fracture detected. PROCEDURE INFORMATION: Exam: CT Head Without Contrast Exam date and time: 04/24/2020 5:30 PM Age: 70 years old Clinical indication: Injury or trauma; Blunt trauma (contusions or hematomas); Consciousness not specified; Initial encounter; Orbit/periorbital; Injury date: 04/24/20; Patient HX: Fall, right inferior orbital tenderness; Additional info: Frontal lobe resection for mass done 02/19/20 TECHNIQUE: Imaging protocol: Computed tomography of the head without contrast. Radiation optimization: All CT scans at this facility use at least one of these dose optimization techniques: automated exposure control; mA and/or kV adjustment per patient size (includes targeted exams where dose is matched to clinical indication); or iterative reconstruction. COMPARISON: A noncontrast head CT performed 06 April 2020. FINDINGS: Brain: Frontal lobectomy defect is again identified and gyriform hyperdensity seen along the anterosuperior margin of the right frontal lobe adjacent to a low-density intraparenchymal focus is unchanged. A 5-6 mm subdural collection seen along the lateral aspect of the anterior right frontal lobe subjacent to the craniotomy flap is unchanged. An abnormal confluent zone of low attenuation seen throughout the deep and subcortical white matter of the anterior left frontal lobe is also stable in appearance and no new sites of intracranial hemorrhage are detected. Cerebral ventricles: Stable in configuration. Bones/joints: Right frontal craniotomy defect is again identified and no new bony lesions are detected. Paranasal sinuses: Opacification of 1 of the posterior left-sided ethmoid air cells and previous bilateral sinus surgery again evident. Mastoid air cells: Visualized mastoid air cells are normally pneumatized and well aerated. Soft tissues: Unremarkable. IMPRESSION: Stable postsurgical appearance following right frontal lobectomy with gyriform hyperdensity again seen along the anterosuperior margin of the frontal lobe adjacent to a low-density focus and a 5-6 mm subdural collection again seen along the lateral aspect of the anterior right frontal lobe subjacent to the craniotomy flap, all unchanged. No new intracranial hemorrhage detected. Dictated and Authenticated by: Praveen Horta MD. Ordering:DIPIKA Sparks MD
[2020-04-24 18:57] VITALS: BP 115/90; PULSE 60; RESP 16
== END 2020-04-24 18:55 | disposition home or self-care (01) ==
PROVIDERS: Emergency Provider Physician Assistant; PCP Emergency Medicine
DX: S01.111A Laceration without foreign body of right eyelid and periocular area, initial encounter (principal); W18.39XA Other fall on same level, initial encounter; R41.0 Disorientation, unspecified; I10 Essential (primary) hypertension; Z98.890 Other specified postprocedural states
CPT/HCPCS: 12011; 99284; 70450; 70480; 99281

== ENCOUNTER 2020-04-28 11:18 | Outpatient (CLI) | payer MEDICARE, OTHER, SELFPAY ==
[2020-04-28 12:23] LABS: Abs Immature Grans 0.15 10^3/uL (0.0-0.06); Absolute Basophil Count 0.01 10^3/uL (0.0-0.2); Absolute Eosinophil Count 0.01 10^3/uL (0.0-0.7); Absolute Lymphocyte Count 0.73 10^3/uL (1.2-3.4); Absolute Monocyte Count 0.37 10^3/uL (0.1-0.8); Absolute Neutrophil Count 8.61 10^3/uL (1.2-6.7); Basophils % 0.1; Eosinophils % 0.1; HCT 39.2 % (40.0-50.0); HGB 13.2 g/dL (13.5-17.5); Immature Grans % 1.5; Lymphocytes % 7.4; MCH 30.9 pg (27.0-33.0); MCHC 33.7 % (32.0-36.0); MCV 91.8 fL (80-95); MPV 11.3 fL (8.0-11.0); Monocytes % 3.7; Neutrophils % 87.2; Nucleated RBC 0 %; RBC 4.27 10^6/uL (4.36-5.78); RDW 13.2 % (11.8-14.1); RDW-SD 43.8 fL; WBC 9.88 10^3/uL (4.4-10.8)
[2020-04-28 12:39] LABS: Platelet Count 85 10^3/uL (130-400)
[2020-04-28 12:40] LABS: Diff Comment PLT Morph Reviewed; Polychromasia Present
[2020-04-28 12:41] LABS: ALT 37 U/L (16-63); AST 17 U/L (15-37); Albumin 3.5 g/dL (3.4-5.0); Alkaline Phosphatase 84 U/L (46-116); Anion Gap 5.6 mmol/L (3-11); BUN 40 mg/dL (7-18); Bilirubin, Total 0.8 mg/dL (0.2-1.0); CO2 31.4 mmol/L (21.0-32.0); CREATININE 1.63 mg/dL (0.70-1.30); Calcium 10.3 mg/dL (8.5-10.1); Chloride 104 mmol/L (98-107); Estimated GFR 42.16 (mL/min/1.73m2); Glucose 484 mg/dL (74-106); Potassium 3.8 mmol/L (3.5-5.1); Sodium 141 mmol/L (136-145); Total Protein 6.5 g/dL (6.4-8.2)
== END 2020-04-28 11:38 ==
PROVIDERS: PCP Emergency Medicine; Visit Provider Internal Medicine
DX: C71.9 Malignant neoplasm of brain, unspecified (principal); D69.6 Thrombocytopenia, unspecified
CPT/HCPCS: 36415; 80053; 85025

== ENCOUNTER 2020-05-12 15:13 | Observation (INO) | payer MEDICARE, OTHER, SELFPAY ==
[2020-05-12] VITALS (23 sets, daily range): BP systolic 104–128; BP diastolic 70–86; PULSE 68–86; RESP 16–18; TEMP 36.6; O2SAT 96–100
--- NOTE | 2020-05-12 15:52 | ED.GENADUL_ITS ---
Discharge Plan Disposition Patient Disposition: [facility] INPATIENT Condition: Stable Discharge Details Clinical Impression: Renal insufficiency Admit Date/Time: 05/12/20 18:48 Admit Provider: Artur Mariee Attending Provider: Artur Mariee Primary Care Provider: Sunday Orellana ED Provider: Clare Luther Discharge Data Discharge Date/Time-TO BE ENTERED AT DEPARTURE: 05/12/20 19:40 Medical Decision Making <CHRIS Mullins - Last Filed: 05/13/20 08:16> 70-year-old gentleman with recent history of glioblastoma, resection, chemotherapy, radiation, now with his first a Avastin infusion today. Received the entire infusion and sent to the ER for BUN of 100 and creatinine 3.6. Avastin does have known side effects of nephrotoxicity. Patient currently appears well, nontoxic and has no acute complaints. Will recheck CBC, CMP, urinalysis, give IV fluids and reassess. Likely will need to discuss case with nephrology and determine if the patient can be managed here at our facility or needs transfer to [facility] for IV hydration, observation of his renal function, and if renal function worsens even then possibly dialysis. At time of shift change to CHRIS Luther, laboratory values have been ordered but nothing has resulted. Medical Records Medical records reviewed: Yes I reviewed the patient's medical records. <CHRIS Kohler - Last Filed: 05/13/20 00:00> Care transition to myself from Jeffery Suarez PA-C with labs pending. In brief, patient is a pleasant 70-year-old male currently undergoing treatment for glioblastoma. Recently had a lobectomy. Patient also was recently on oral chemotherapy. Received first dosing of Avastin today. Is reported that prior to receiving his first dose of Avastin today it was noted that his creatinine was 3.6. He was after finding out about his creatinine of the Avastin was administered. Labs returned significant for a BUN of 94 and a creatinine of 3.35. Patient's baseline is more around 1.3. Potassium is 3.5. Spoke with Dr. Vanegas with nephrology. They are able to identify multiple medications causing kidney dysfunction including Protonix, allopurinol, Bactrim, Keppra, metformin. Per family, patient started Keppra on Friday and doubled his dose of metformin on the same day. He has advises potentially prevent tumor lysis syndrome. Patient also underwent a CT venogram on 04/29/2020. Recommended continuing to hydrate the patient. At this point, I do not recommend transfer to their facility but rather adjustment of medications and hydration with monitoring of creatinine. He did recommend a renal ultrasound do not feel that this need to be emergent. Consulted with Dr. Mariee who agrees to admission. HPI <CHRIS Mullins - Last Filed: 05/13/20 08:16> General Mode of arrival: ambulatory . Date/Time Provider Initiated Documentation: 05/12/20 15:22 . Limitations to Documentation: no limitations . Information obtained by: patient and family . HPI Narrative: This is a 70-year-old gentleman who presents to the ER with his daughter for evaluation. He has a past medical history that includes BPH, hypertension, former smoker, hyperlipidemia, recent diagnosis of glioblastoma. Since that diagnosis he has had a resection, oral chemotherapy and radiation. He finished his last oral chemotherapy approximately 1 week ago and will not be due until the beginning of May. Today he was given his first infusion of a Avastin. He received 250 cc of normal saline with the Avastin and after the infusion was directed to the ER for elevated BUN and creatinine that was drawn today at 1 PM. Patient reports mild generalized fatigue but denies any recent illness or trauma. Denies headache, neck pain, chest pain, shortness of breath no abdominal pain, nausea, vomiting, change in bowel or bladder function, numbness, tingling, weakness. He does report slightly decreased oral intake. Per his daughter, his renal function has slowly been going down with the new medications that have been given however the creatinine of 3.6 is a rather significant jump today. Related Data Home Medications Medication Instructions Recorded Confirmed multivitamin [Daily Value] 2 ea PO DAILY 11/04/12 05/12/20 allopurinol 100 mg tablet 200 mg PO DAILY #180 tab-cap 08/11/19 05/12/20 amlodipine 5 mg tablet 5 mg PO DAILY #90 tab-cap 08/11/19 05/12/20 atorvastatin [Lipitor] 10 mg PO DAILY 04/24/20 05/12/20 hydrochlorothiazide 12.5 mg PO DAILY 04/24/20 05/12/20 ondansetron 8 mg PO Q8H PRN 04/24/20 05/12/20 pantoprazole 40 mg PO DAILY 04/24/20 05/12/20 sennosides [senna] 17.2 mg PO QHS 04/24/20 05/12/20 sulfamethoxazole-trimethoprim See Rx Instructions .ROUTE .COMPLEX 04/24/20 05/12/20 [Bactrim DS] thiamine HCl (vitamin B1) 100 mg PO DAILY 04/24/20 05/12/20 tamsulosin 0.4 mg capsule 0.4 mg PO DAILY #30 cap 04/27/20 05/12/20 apixaban 5 mg tablet 5 mg PO BID 05/09/20 05/12/20 metformin 500 mg tablet See Rx Instructions .ROUTE .COMPLEX 05/09/20 05/12/20 furosemide 20 mg tablet 20 mg PO DAILY #90 tab 05/11/20 05/12/20 acetaminophen 650 mg PO Q6H PRN 05/12/20 05/12/20 dexamethasone 3 mg PO DAILY 05/12/20 05/12/20 levetiracetam 500 mg PO BID 05/12/20 05/12/20 melatonin 2.5 mg PO HS 05/12/20 05/12/20 pyridoxine (vitamin B6) 50 mg PO DAILY 05/12/20 05/12/20 temozolomide See Rx Instructions .ROUTE .COMPLEX 05/12/20 05/12/20 Previous Rx's Medication Instructions Recorded allopurinol 100 mg tablet 200 mg PO DAILY #180 tab-cap 08/11/19 amlodipine 5 mg tablet 5 mg PO DAILY #90 tab-cap 08/11/19 tamsulosin 0.4 mg capsule 0.4 mg PO DAILY #30 cap 04/27/20 furosemide 20 mg tablet 20 mg PO DAILY #90 tab 05/11/20 Allergies Allergy/AdvReac Type Severity Reaction Status Date / Time No Known Allergies Allergy Verified 05/12/20 19:14 General Stated Complaint: Urinary JOSIE: 3 Review of Systems <CHRIS Mullins - Last Filed: 05/13/20 08:16> Constitutional Constitutional: Reports fatigue, Denies fever(s) and Denies headache(s) Eyes Eyes: Denies change in vision ENT Ears, Nose, Mouth, and Throat: Denies headache(s) and Denies neck pain Cardiovascular Cardiovascular: Denies chest pain and Denies dyspnea Respiratory Respiratory: Denies cough and Denies dyspnea Gastrointestinal Gastrointestinal: Denies abdominal pain, Denies nausea and Denies vomiting Genitourinary Genitourinary: Denies dysuria Musculoskeletal Musculoskeletal: Denies back pain and Denies neck pain Integumentary/Breasts Skin/Breast: Denies rash Neurologic Neurologic: Denies headache(s) Endocrine Endocrine: Reports fatigue PFSH <CHRIS Mullins - Last Filed: 05/13/20 08:16> Medical History Actinic keratitis (06/07/14) LEFT SYNAGOGUE/FOREHEAD Age-related macular degeneration Allergic rhinitis BPH w urinary obs/LUTS (03/01/16) Cataract Cervical disc prolapse with radiculopathy diskectomy/fusion 2000 Diverticulosis of colon without diverticulitis Elevated PSA (03/01/16) Essential hypertension (09/30/13) Weight and alcohol dependent Family hx of prostate cancer Gastroesophageal reflux disease HH; LAP JOSH Glioblastoma Gout Hematuria, unspecified History of tobacco use Hyperlipidemia Neoplasm of unspecified nature of bone, soft tissue, and skin (08/07/15) Obesity Shoulder pain right; full thickness tear 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 THORPE; RIGHT SIDE OF NECK; LEFT SIDE OF FOREHEAD Surgical History Appendectomy Correction, Hammertoe RIGHT nasal surgery left nasal polypoid lesion removed Vasectomy Family History Mother Stroke Father Heart disease Sister No problems noted. Sister No problems noted. Sister No problems noted. Sister No problems noted. Daughter No problems noted. Daughter No problems noted. Maternal Grandfather Edema Heart disease Paternal Grandfather , ACCIDENTAL at age 49. No problems noted. Paternal Grandmother No problems noted. Maternal Grandmother Stroke Social History Smoking/Tobacco Use Status: Former Tobacco Use Quit Date: 09/26/87 Alcohol Intake: former Drug use: Never Substance use type: does not use Caregiver/Support person: No Household members: spouse Pets and animals: No Do you think of yourself as: straight/heterosexual Duration: 45-60 minutes/day Frequency: 1-2 times per week Vanita/Congregational: Christianity Special vanita needs: No Do you feel safe at home: Yes Do you feel safe in your relationship?: Yes Exam <CHRIS Mullins - Last Filed: 05/13/20 08:16> Const General: cooperative, healthy appearing, comfortable and no acute distress Orientation: alert, awake and oriented x3 HENMT Head: normal to inspection, normocephalic and atraumatic Mouth: moist mucous membranes Eyes Conjunctivae: conjunctivae normal Sclera: sclerae normal Neck Neck: normal visual inspection, trachea midline and supple Resp Effort & Inspection: normal respiratory effort and able to speak in complete sentences Auscultation: clear to auscultation bilaterally Cardio Rate: regular rate Rhythm: regular rhythm GI Inspection: normal to inspection Palpation: soft, not firm, no guarding and nontender Back/Spine/Pelvis Back: No back tenderness Skin General skin exam: no rashes or lesions noted Neuro General: patient alert, patient awake, patient oriented x3, moves all extremities and no focal motor deficits Cognition: normal cognition Speech: speech normal Gait: normal gait Motor: muscle tone normal throughout Sensory Exam: no sensory deficits noted Extrem General: full ROM, capillary refill normal and edema Laterality: bilateral (Lower extremities, 1+, wearing stockings) Psych Appearance: grossly normal Mental Status: mental status grossly normal Course <CHRIS Mullins - Last Filed: 05/13/20 08:16> Vital Signs Vital signs: Vital Signs Temperature 36.6 C 05/12/20 15:21 Pulse 86 05/12/20 15:21 Respiratory Rate 18 05/12/20 15:21 Blood Pressure 104/72 05/12/20 15:21 Pulse Oximetry 100 05/12/20 15:21 Temperature 36.6 C 05/12/20 15:21 Temperature Source Skin 05/12/20 15:21 Pulse 86 05/12/20 15:21 Respiratory Rate 18 05/12/20 15:21 Respiratory Effort Non-Labored 05/12/20 15:31 Blood Pressure 104/72 05/12/20 15:21 Blood Pressure Position Sitting 05/12/20 15:21 Pulse Oximetry 100 05/12/20 15:21 Oxygen Delivery Method Room Air 05/12/20 15:21 Oxygen Flow Rate 0 05/12/20 15:21 Pain Level 0 05/12/20 15:21 Sign Out <CHRIS Mullins - Last Filed: 05/13/20 08:16> Sign Out Data: Sign Out Comment: Awaiting CBC, CMP, urinalysis. IV normal saline infusing. Will likely require nephrology consultation and final disposition. Last updated by Cory Suarez PA at 05/12/20 16:06
[2020-05-12] MEDS: Normal Saline 1,000 ML 1000 ML IV (16:20)
[2020-05-12 16:29] LABS: Abs Immature Grans 0.16 10^3/uL (0.0-0.06); Absolute Basophil Count 0.02 10^3/uL (0.0-0.2); Absolute Eosinophil Count 0.02 10^3/uL (0.0-0.7); Absolute Lymphocyte Count 1.38 10^3/uL (1.2-3.4); Absolute Monocyte Count 0.54 10^3/uL (0.1-0.8); Absolute Neutrophil Count 5.67 10^3/uL (1.2-6.7); Basophils % 0.3; Eosinophils % 0.3; HCT 34.9 % (40.0-50.0); HGB 12.1 g/dL (13.5-17.5); Immature Grans % 2.1; Lymphocytes % 17.7; MCH 31.3 pg (27.0-33.0); MCHC 34.7 % (32.0-36.0); MCV 90.2 fL (80-95); MPV 11.4 fL (8.0-11.0); Monocytes % 6.9; Neutrophils % 72.7; Nucleated RBC 0 %; Platelet Count 192 10^3/uL (130-400); RBC 3.87 10^6/uL (4.36-5.78); RDW-SD 42.5 fL
[2020-05-12 16:43] LABS: ALT 35 U/L (16-63); AST 20 U/L (15-37); Albumin 3.1 g/dL (3.4-5.0); Alkaline Phosphatase 63 U/L (46-116); Anion Gap 8.7 mmol/L (3-11); Bilirubin, Total 0.4 mg/dL (0.2-1.0); CO2 24.3 mmol/L (21.0-32.0); CREATININE 3.35 mg/dL (0.70-1.30); Chloride 103 mmol/L (98-107); Estimated GFR 18.36 (mL/min/1.73m2); Glucose 185 mg/dL (74-106); Potassium 3.5 mmol/L (3.5-5.1); Sodium 136 mmol/L (136-145); Total Protein 5.7 g/dL (6.4-8.2)
[2020-05-12 16:45] LABS: BUN 94 mg/dL (7-18)
[2020-05-12 17:05] LABS: Bilirubin Negative (Negative); Blood Negative (Negative); Clarity Clear (Clear); Glucose Negative (Negative); Ketones Negative (Negative); Leukocyte Esterase Negative (Negative); Nitrite Negative (Negative); Specific Gravity 1.025 (1.005-1.025); Urobilinogen 0.2 EU/dL (Up TO 0.2); pH 5.5 (5-8)
[2020-05-12 17:29] LABS: Creatine Kinase 103 U/L (39-308)
[2020-05-12 17:44] LABS: Uric Acid 9.8 mg/dL (3.5-7.2)
--- NOTE | 2020-05-12 18:31 | HPE_ITS ---
Date of service: 05/12/20 Time of Service: 18:31 Assessment and Plan Assessment and plan (1) Renal insufficiency: Status: Chronic Assessment and plan: I think the bulk of the evidence indicates pre-renal azotemia here, as manifested by compatible history, BUN/Cr ratio >20, benign sediment and rapid improvement with hydration. Will continue hydration and monitor. Will hold Allopurinol, Metformin, Bactrim and diuretics. May continue PPI as no signs nephritis. Will reduce dose Eliquis. Reviewed ADs, requests full code. History of Present Illness History of Present Illness Chief Complaint: ALENA Narrative: 70 male with recent dx glioblastoma, s/p right frontal lobectomy, has been undergoing chemo/XRT. Started Keppra 2 days [employer] for focal seizures. After getting first dose Avastin today Creatinine of 3.6 noted (BUN 93), sent to ER. In ER labs otherwise of note for K 3.5, HCO3 24, and unremarkable urine sediment. Patient started IVF and repeat creatinine 3 hour later 3.3. ER reviewed case with Nephrology who advised hold any potentially nephrotoxic meds and monitor. Patient reports (daughter confirms) that patient has been tired since starting Keppra and has had decrease in PO intake. Review of Systems All systems reviewed & are unremarkable except as noted in HPI and below PFSH Medical History Actinic keratitis (06/07/14) LEFT PENTECOSTALISM/FOREHEAD Age-related macular degeneration Allergic rhinitis BPH w urinary obs/LUTS (03/01/16) Cataract Cervical disc prolapse with radiculopathy diskectomy/fusion 2000 Diverticulosis of colon without diverticulitis Elevated PSA (03/01/16) Essential hypertension (09/30/13) Weight and alcohol dependent Family hx of prostate cancer Gastroesophageal reflux disease HH; LAP JOSH Glioblastoma Gout Hematuria, unspecified History of tobacco use Hyperlipidemia Neoplasm of unspecified nature of bone, soft tissue, and skin (08/07/15) Obesity Shoulder pain right; full thickness tear 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 THORPE; RIGHT SIDE OF NECK; LEFT SIDE OF FOREHEAD Surgical History Appendectomy Correction, Hammertoe RIGHT nasal surgery left nasal polypoid lesion removed Vasectomy Family History Mother Stroke Father Heart disease Sister No problems noted. Sister No problems noted. Sister No problems noted. Sister No problems noted. Daughter No problems noted. Daughter No problems noted. Maternal Grandfather Edema Heart disease Paternal Grandfather , ACCIDENTAL at age 49. No problems noted. Paternal Grandmother No problems noted. Maternal Grandmother Stroke Social History Smoking/Tobacco Use Status: Former Tobacco Use Quit Date: 09/26/87 Alcohol Intake: former Drug use: Never Substance use type: does not use Caregiver/Support person: No Household members: spouse Pets and animals: No Do you think of yourself as: straight/heterosexual Duration: 45-60 minutes/day Frequency: 1-2 times per week Vanita/Congregation: Sikhism Special vanita needs: No Do you feel safe at home: Yes Do you feel safe in your relationship?: Yes Meds Home Medications and Allergies Home Medications Medication Instructions Recorded Confirmed Type multivitamin [Daily Value] 1 ea PO DAILY 11/04/12 04/27/20 History allopurinol 100 mg tablet 200 mg PO DAILY #180 tab-cap 08/11/19 04/27/20 Rx amlodipine 5 mg tablet 5 mg PO DAILY #90 tab-cap 08/11/19 04/27/20 Rx atorvastatin [Lipitor] 10 mg PO DAILY 04/24/20 04/27/20 History dexamethasone 4 mg PO DAILY 04/24/20 04/27/20 History hydrochlorothiazide 12.5 mg PO DAILY 04/24/20 04/27/20 History ondansetron 8 mg PO Q8H 04/24/20 04/27/20 History pantoprazole 40 mg PO DAILY 04/24/20 04/27/20 History sennosides [senna] 17.2 mg PO QHS 04/24/20 04/27/20 History sulfamethoxazole-trimethoprim See Rx Instructions .ROUTE .COMPLEX 04/24/20 04/27/20 History [Bactrim DS] thiamine HCl (vitamin B1) 100 mg PO DAILY 04/24/20 04/27/20 History tamsulosin 0.4 mg capsule 0.4 mg PO DAILY #30 cap 04/27/20 04/27/20 Rx apixaban 5 mg tablet 5 mg PO BID 05/09/20 05/09/20 History metformin 500 mg tablet 500 mg PO BID 05/09/20 05/09/20 History furosemide 20 mg tablet 20 mg PO DAILY #90 tab 05/11/20 Rx Allergies Allergy/AdvReac Type Severity Reaction Status Date / Time No Known Allergies Allergy Verified 05/09/20 07:45 Exam Narrative Exam Narrative: 122/80, 75, 36.6, 18, 100% RA. HEENT crainial scar right, slight ptosis OS; neck supple; lungs clear; jheart RRR w/o MRG; abdomen soft and NT; etremities 1 + pedal edama bilateral, neuro Ox3, moves all 4s, converses lucidly but misses some details Results Labs Result diagrams: 05/12/20 16:24 05/12/20 16:24 Labs: Laboratory Results - last 24 hr 05/12/20 05/12/20 05/12/20 16:24 16:24 16:24 WBC 7.80 D RBC 3.87 L Hgb 12.1 L Hct 34.9 L MCV 90.2 MCH 31.3 MCHC 34.7 RDW 13.0 Plt Count 192 MPV 11.4 H Immature Gran % 2.1 Neutrophils % 72.7 Lymphocytes % 17.7 Monocytes % 6.9 Eosinophils % 0.3 Basophils % 0.3 Nucleated RBC % 0 Absolute Neutrophils 5.67 Absolute Lymphocytes 1.38 Absolute Monocytes 0.54 Absolute Eosinophils 0.02 Absolute Basophils 0.02 Sodium 136 Potassium 3.5 Chloride 103 Carbon Dioxide 24.3 Anion Gap 8.7 BUN 94 H* Creatinine 3.35 H Estimated GFR/1.73 m2 18.36 Glucose 185 H Uric Acid Calcium 9.0 Total Bilirubin 0.4 AST 20 ALT 35 Alkaline Phosphatase 63 Creatine Kinase 103 Total Protein 5.7 L Albumin 3.1 L Urine Color Urine Clarity Urine pH Ur Specific [place] Urine Protein Urine Ketones Urine Blood Urine Nitrite Urine Bilirubin Urine Urobilinogen Ur Leukocyte Esterase Urine Glucose 05/12/20 05/12/20 16:24 16:56 WBC RBC Hgb Hct MCV MCH MCHC RDW Plt Count MPV Immature Gran % Neutrophils % Lymphocytes % Monocytes % Eosinophils % Basophils % Nucleated RBC % Absolute Neutrophils Absolute Lymphocytes Absolute Monocytes Absolute Eosinophils Absolute Basophils Sodium Potassium Chloride Carbon Dioxide Anion Gap BUN Creatinine Estimated GFR/1.73 m2 Glucose Uric Acid 9.8 H Calcium Total Bilirubin AST ALT Alkaline Phosphatase Creatine Kinase Total Protein Albumin Urine Color Yellow Urine Clarity Clear Urine pH 5.5 Ur Specific [place] 1.025 Urine Protein Negative Urine Ketones Negative Urine Blood Negative Urine Nitrite Negative Urine Bilirubin Negative Urine Urobilinogen 0.2 Ur Leukocyte Esterase Negative Urine Glucose Negative Last Vital Signs Temp 36.6 C 05/12/20 15:21 Pulse 70 05/12/20 17:45 Resp 18 05/12/20 15:21 BP 127/78 05/12/20 17:45 Pulse Ox 98 05/12/20 17:45 COVID-19 Screening Have you,or household,traveled outside [place] in last 14 days?: No Had IN PERSON contact w/suspected or confirmed C-19 person: No
[2020-05-12 18:35] LABS: Sodium, Urine 50 mmol/L
[2020-05-12] MEDS: levETIRAcetam 250 MG TAB 500 MG PO (20:17)
[2020-05-12] MEDS: Apixaban 5 MG TAB 2.5 MG PO (20:17)
[2020-05-12] MEDS: Normal Saline 1,000 ML 100 ML IV (20:17)
[2020-05-12] MEDS: Senna TAB 1 TAB PO (21:10)
[2020-05-13 04:31] VITALS: BP 126/80; PULSE 67; RESP 16; TEMP 36.8; O2SAT 98
[2020-05-13] MEDS: Normal Saline 1,000 ML 100 ML IV (07:02)
[2020-05-13 07:35] LABS: Anion Gap 11.5 mmol/L (3-11); BUN 62 mg/dL (7-18); CO2 25.5 mmol/L (21.0-32.0); CREATININE 1.94 mg/dL (0.70-1.30); Calcium 8.3 mg/dL (8.5-10.1); Chloride 109 mmol/L (98-107); Estimated GFR 34.48 (mL/min/1.73m2); Glucose 139 mg/dL (74-106); Potassium 3.1 mmol/L (3.5-5.1); Sodium 146 mmol/L (136-145)
[2020-05-13 08:26] VITALS: BP 120/71; PULSE 65; RESP 20; TEMP 36.1; O2SAT 98
[2020-05-13] MEDS: POTASSIUM CHLORIDE/0.45% NACL 1,000 ML 150 MEQ IV ×3 (08:31→21:41)
[2020-05-13] MEDS: Pantoprazole 40 MG TABCR PO (08:31)
[2020-05-13] MEDS: Apixaban 5 MG TAB 2.5 MG PO (08:32)
[2020-05-13] MEDS: Thiamine 100 MG TAB PO (08:35)
[2020-05-13] MEDS: amLODIPine 5 MG TAB PO (08:35)
[2020-05-13] MEDS: Dexamethasone 4 MG TAB PO (08:35)
[2020-05-13] MEDS: Tamsulosin 0.4 MG CAPCR PO (08:35)
[2020-05-13] MEDS: levETIRAcetam 250 MG TAB 500 MG PO ×2 (08:35→20:04)
[2020-05-13] MEDS: Potassium Chloride 20 MEQ TABCR 40 MEQ PO (11:03)
[2020-05-13] MEDS: Insulin Aspart 300 UNITS/3 ML PEN SC ×2 (11:40→16:39)
[2020-05-13 11:41] VITALS: BP 103/66; PULSE 69; RESP 16; TEMP 36; O2SAT 98
[2020-05-13 14:49] LABS: COVID-19 RT-PCR UVMMC Result Negative (Negative)
--- NOTE | 2020-05-13 14:55 | W.PM.PROGNOT ---
Date of Service Date of service: 05/13/20 Time of Service: 14:55 Assessment and Plan Assessment and plan (1) Renal insufficiency: Status: Chronic Assessment and plan: Acute kidney injury secondary to medications and dehydration. Continue with IV fluid hydration. Recheck his BMP in the morning and assuming that his renal functions returned to normal he will be discharged home with discontinuation of his furosemide and his hydrochlorothiazide and his Bactrim. 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 We will monitor his blood sugars but withhold his Metformin. Will cover with insulin per sliding scale (4) History of DVT (deep vein thrombosis): Status: Acute Assessment and plan: Continue apixaban and his previously prescribed dose of 5 mg twice a day. There is no need to reduce his dose in the setting of his acute kidney injury since his renal function is improving and he is under the age of [age] years old. His DVT is fairly recent within the last 2 months. Subjective Subjective Interval history since last seen: Patient denies any nausea or vomiting or abdominal pain or flank pain. He has no fever or chills. He was referred to [facility] by his oncologist due to acute azotemia found at the time of his Avastin infusion for his glioblastoma multiform. He is status post right frontal lobotomy and brain radiation treatment just started Avastin yesterday. It is felt that his acute azotemia secondary to his diuretics along with Bactrim. Patient is also been diagnosed with type 2 diabetes mellitus secondary to his steroid treatment for his GBM. He had been put on Metformin. At this time his Metformin as Bactrim as well as his hydrochlorothiazide and furosemide have been discontinued. His daughter informs me that he no longer takes Norvasc. Patient also has a history of DVT in his right leg for which she has been on apixaban. Exam Narrative Exam Narrative: male sitting up at his bedside alert and oriented person place time circumstance. Denies any discomfort. Lungs are clear to auscultation Heart regular rate and rhythm Abdomen soft and nontender No flank tenderness Right calf with some slight edema along with pretibial edema compared to his left. No tenderness. Objective Last Vital Signs Temp 36 C L 05/13/20 11:41 Pulse 69 05/13/20 11:41 Resp 16 05/13/20 11:41 BP 103/66 05/13/20 11:41 Pulse Ox 98 05/13/20 11:41 Laboratory Results - last 24 hr 05/12/20 05/12/20 05/12/20 16:24 16:24 16:24 WBC 7.80 D RBC 3.87 L Hgb 12.1 L Hct 34.9 L MCV 90.2 MCH 31.3 MCHC 34.7 RDW 13.0 Plt Count 192 MPV 11.4 H Immature Gran % 2.1 Neutrophils % 72.7 Lymphocytes % 17.7 Monocytes % 6.9 Eosinophils % 0.3 Basophils % 0.3 Nucleated RBC % 0 Absolute Neutrophils 5.67 Absolute Lymphocytes 1.38 Absolute Monocytes 0.54 Absolute Eosinophils 0.02 Absolute Basophils 0.02 Sodium 136 Potassium 3.5 Chloride 103 Carbon Dioxide 24.3 Anion Gap 8.7 BUN 94 H* Creatinine 3.35 H Estimated GFR/1.73 m2 18.36 Glucose 185 H Uric Acid Calcium 9.0 Total Bilirubin 0.4 AST 20 ALT 35 Alkaline Phosphatase 63 Creatine Kinase 103 Total Protein 5.7 L Albumin 3.1 L Urine Color Urine Clarity Urine pH Ur Specific [place] Urine Protein Urine Ketones Urine Blood Urine Nitrite Urine Bilirubin Urine Urobilinogen Ur Leukocyte Esterase Ur Random Sodium Urine Glucose COVID-19 PCR Nasopharyn COVID-19 PCR Ref Test Perform Site 05/12/20 05/12/20 05/12/20 16:24 16:56 16:56 WBC RBC Hgb Hct MCV MCH MCHC RDW Plt Count MPV Immature Gran % Neutrophils % Lymphocytes % Monocytes % Eosinophils % Basophils % Nucleated RBC % Absolute Neutrophils Absolute Lymphocytes Absolute Monocytes Absolute Eosinophils Absolute Basophils Sodium Potassium Chloride Carbon Dioxide Anion Gap BUN Creatinine Estimated GFR/1.73 m2 Glucose Uric Acid 9.8 H Calcium Total Bilirubin AST ALT Alkaline Phosphatase Creatine Kinase Total Protein Albumin Urine Color Yellow Urine Clarity Clear Urine pH 5.5 Ur Specific [place] 1.025 Urine Protein Negative Urine Ketones Negative Urine Blood Negative Urine Nitrite Negative Urine Bilirubin Negative Urine Urobilinogen 0.2 Ur Leukocyte Esterase Negative Ur Random Sodium 50 Urine Glucose Negative COVID-19 PCR Nasopharyn COVID-19 PCR Ref Test Perform Site 05/12/20 05/13/20 19:28 06:40 WBC RBC Hgb Hct MCV MCH MCHC RDW Plt Count MPV Immature Gran % Neutrophils % Lymphocytes % Monocytes % Eosinophils % Basophils % Nucleated RBC % Absolute Neutrophils Absolute Lymphocytes Absolute Monocytes Absolute Eosinophils Absolute Basophils Sodium 146 H Potassium 3.1 L Chloride 109 H Carbon Dioxide 25.5 Anion Gap 11.5 H BUN 62 H D Creatinine 1.94 H D Estimated GFR/1.73 m2 34.48 Glucose 139 H Uric Acid Calcium 8.3 L Total Bilirubin AST ALT Alkaline Phosphatase Creatine Kinase Total Protein Albumin Urine Color Urine Clarity Urine pH Ur Specific [place] Urine Protein Urine Ketones Urine Blood Urine Nitrite Urine Bilirubin Urine Urobilinogen Ur Leukocyte Esterase Ur Random Sodium Urine Glucose COVID-19 PCR Negative Nasopharyn COVID-19 PCR Not Applicable Ref Test Perform Site [facility] lab
[2020-05-13 15:47] VITALS: BP 134/82; PULSE 65; RESP 16; TEMP 36.1; O2SAT 98
--- NOTE | 2020-05-13 18:18 | PDOC.CMIN ---
- If Service Date Differs Date of service: 05/13/20 Time of Service: 18:31 Care Management Initial Assess REASON FOR HOSPITALIZATION:: Renal Insufficiency PAST MEDICAL HISTORY/PAST SURGICAL HISTORY:: 70 male with recent dx glioblastoma, s/p right frontal lobectomy, has been undergoing chemo/XRT. 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 After getting first dose Avastin today Creatinine of 3.6 noted (BUN 93), sent to ER. Actinic keratitis, age related macular degeneration, allergic rhinitis, BPH with urinary obs/LUTS, cataracts, cervical disc prolapse with radiculopathy, diverticulosis of colon, essential hypertension, GERD, gout, hematuria, hx of DVT, hx of tobacco use, hyperlipidemia, neoplasm of bone, soft tissue and skin, obesity, shoulder pain, squamous cell carcinoma of skin, squamous cell carcinoma of neck, appendectomy, right hammertoe correction, nasal surgery, vasectomy PREVIOUS FUNCTIONAL STATUS/SOCIAL/FAMILY SUPPORTS:: Chad resides in [place] with his . He has VNA supports and requires some support with ADLs including bathing, dressing and ambulating. ADVANCE DIRECTIVES:: On file, Tomasa as agent, Clare and Carmelita as alternates. Has patient been provided with info about the portal/API?: Yes Did the patient sign up for the portal?: Yes (Previously) CODE STATUS:: Full Code INSURANCE COVERAGE / FINANCIAL ISSUES:: Medicare. for Life CURRENT HOME/COMMUNITY SERVICES/EQUIPMENT:: VNA: RN, PT, OT. FWW, glucometer. PRIMARY CARE PHYSICIAN:: Dr. Orellana. POTENTIAL DISCHARGE NEEDS:: [facility] referral, evaluation for further needs. Possbile Palliative referral. PATIENT/FAMILY EDUCATION NEEDS:: Review discharge instructions, discuss Ask Me Three. ANTICIPATED BARRIERS TO DISCHARGE:: None identified. TRANSPORTATION:: Via private vehicle with his . PLAN:: Anticipate Chad will return home when ready per MD. He will be evaluated for increased service supports and offered resources. He will follow up with his PCP and plan of care as prescribed. He will transport via private vehicle with his .
[2020-05-13] MEDS: Apixaban 5 MG TAB PO (20:04)
[2020-05-13] MEDS: Potassium Chloride 20 MEQ TABCR PO (20:04)
[2020-05-13] MEDS: Senna TAB 1 TAB PO (20:05)
[2020-05-13 23:43] VITALS: BP 130/80; PULSE 63; RESP 17; TEMP 36.3; O2SAT 98
[2020-05-14] MEDS: POTASSIUM CHLORIDE/0.45% NACL 1,000 ML 150 MEQ IV (04:04)
[2020-05-14 07:36] LABS: Anion Gap 9.3 mmol/L (3-11); BUN 33 mg/dL (7-18); CO2 24.7 mmol/L (21.0-32.0); CREATININE 1.22 mg/dL (0.70-1.30); Calcium 8.5 mg/dL (8.5-10.1); Chloride 111 mmol/L (98-107); Glucose 137 mg/dL (74-106); Potassium 4.2 mmol/L (3.5-5.1); Sodium 145 mmol/L (136-145)
[2020-05-14 07:50] VITALS: BP 139/88; PULSE 70; RESP 17; TEMP 36.6; O2SAT 97
[2020-05-14] MEDS: Thiamine 100 MG TAB PO (09:17)
[2020-05-14] MEDS: Potassium Chloride 20 MEQ TABCR PO (09:17)
[2020-05-14] MEDS: Tamsulosin 0.4 MG CAPCR PO (09:17)
[2020-05-14] MEDS: levETIRAcetam 250 MG TAB 500 MG PO (09:17)
[2020-05-14] MEDS: Dexamethasone 4 MG TAB PO (09:17)
[2020-05-14] MEDS: Pantoprazole 40 MG TABCR PO (09:17)
[2020-05-14] MEDS: Apixaban 5 MG TAB PO (09:18)
--- NOTE | 2020-05-14 10:05 | DSE_ITS ---
Date of service: 05/14/20 Time of Service: 10:07 DS: Diagnosis Discharge Diagnosis (1) Renal insufficiency: Start date: 05/14/20 Start time: 10:15 Status: Chronic Asessment and Plan: Acute on chronic secondary to dehydration and medications. Creatinine on admission 3.35. Nephrotoxic medications held. Given IV hydration with improvement of renal function to baseline creatinine 1.22 and BUN improving from 94 to 33. We will stop bactrim, lasix and hctz. Follow up with PCP in 1 week. Continue to hydrate. (2) Glioblastoma: Status: Acute (3) Elevated glucose: Start date: 05/14/20 Start time: 10:18 Status: Acute Asessment and Plan: Steroid induced. restart metformin on discharge. (4) History of DVT (deep vein thrombosis): Start date: 05/14/20 Start time: 10:19 Status: Acute Asessment and Plan: Continue apixaban. above case discussed with Dr. Still who is in agreement. Discharge Plan Disposition Patient Disposition: HOME Condition: Improving Discharge Details Reason For Visit: RENAL INSUFFICIENCY Admit Date/Time: 05/12/20 18:48 Admit Provider: Artur Mariee Attending Provider: Artur Mariee Primary Care Provider: Sunday Orellana Hospital Course Hospital Course: 70 y.o Male recently diagnosed with Glioblastoma, s/p right frontal lobotomy on chemo presented to [facility] from PCP for worsening renal function due to dehydration and use of bactrim. PMH includes DVT on eliquis, GERD, HTN, recently DM secondary to steroid use. On admission creatinine was 3.35 and BUN 93. He was given aggressive IV hydration while nephrotoxic medications were held. Today he is feeling better, creatinine is baseline at 1.22 and BUN is improving at 33. He is being discharged home, his bactrim, lasix and hctz will be discontinued. Follow up with PCP in 1 week and oncology as scheduled. Home Meds and New Rx's Prescriptions: Continued allopurinol 100 mg tablet 200 mg PO DAILY Qty: 180 RF: 4 amlodipine 5 mg tablet 5 mg PO DAILY Qty: 90 RF: 4 Eliquis 5 mg tablet 5 mg PO BID RF: 0 metformin 500 mg tablet See Rx Instructions .ROUTE .COMPLEX RF: 0 tamsulosin [Flomax] 0.4 mg capsule 0.4 mg PO DAILY Qty: 30 RF: 0 multivitamin [Daily Value] 1 EACH tablet 2 ea PO DAILY RF: 0 sennosides [senna] 8.6 mg Tablet 17.2 mg PO QHS RF: 0 atorvastatin [Lipitor] 10 mg Tablet 10 mg PO DAILY RF: 0 ondansetron 8 mg Tablet,Disintegrating 8 mg PO Q8H PRNRF: 0 pantoprazole 40 mg Tablet,Delayed Release (Dr/Ec) 40 mg PO DAILY RF: 0 thiamine HCl (vitamin B1) 100 mg Tablet 100 mg PO DAILY RF: 0 acetaminophen 325 mg Tablet 650 mg PO Q6H PRNRF: 0 levetiracetam 500 mg Tablet 500 mg PO BID RF: 0 dexamethasone 1 mg Tablet 3 mg PO DAILY RF: 0 pyridoxine (vitamin B6) 50 mg Tablet 50 mg PO DAILY RF: 0 temozolomide 140 mg Capsule See Rx Instructions .ROUTE .COMPLEX RF: 0 melatonin 2.5 mg Tablet,Chewable 2.5 mg PO HS RF: 0 Discontinued furosemide 20 mg tablet 20 mg PO DAILY Qty: 90 RF: 4 sulfamethoxazole-trimethoprim [Bactrim DS] 800-160 mg Tablet See Rx Instructions .ROUTE .COMPLEX RF: 0 hydrochlorothiazide 25 mg tablet 12.5 mg PO DAILY RF: 0 Discharge Instructions Instructions: Acute Kidney Injury (DC) Additional Instructions: Follow up with PCP in 1 week You may continue metformin Stop taking, lasix, hydrochlorithiazide and bactrim Activity:: Activity as Tolerated Equipment/Supplies:: No Equipment Needed Diet:: Carb Counting Discharge Orders Discharge Orders: Discharge Order (Routine); Ordered 05/14/20 Ordered By: Maria T Sweet DS: Summary Status at Discharge Functional status at discharge: independent ambulation Overall status at discharge: patient is back to baseline Mental Status: mental status grossly normal Speech and Movement: speech and movement normal Mood: congruent mood Affect: normal affect Exam Narrative Exam Narrative: male sitting up at his bedside alert and oriented person place time circumstance. Denies any discomfort. Lungs are clear to auscultation Heart regular rate and rhythm Abdomen soft and nontender No flank tenderness Right calf with some slight edema along with pretibial edema compared to his left. No tenderness. Psych Mental Status: mental status grossly normal Speech and Movement: speech and movement normal Mood: congruent mood Affect: normal affect DS: Data Vitals/I&O Vitals and I&O: Vital Signs Temperature 36.6 C 05/14/20 07:50 Temperature Source Temporal Artery Scan 05/14/20 07:50 Pulse 70 05/14/20 07:50 Pulse Rhythm Regular 05/14/20 09:40 Respiratory Rate 17 05/14/20 07:50 Respiratory Effort Non-Labored 05/14/20 09:40 Respiratory Depth Normal 05/14/20 09:40 Respiratory Pattern Normal 05/14/20 09:40 Blood Pressure 139/88 05/14/20 07:50 Blood Pressure Mean 90 05/12/20 18:15 Blood Pressure Position Sitting 05/12/20 15:21 Pulse Oximetry 97 05/14/20 07:50 Oxygen Delivery Method Room Air 05/14/20 07:50 Oxygen Flow Rate 0 05/14/20 07:50 Pain Level 0 05/14/20 07:50 Intake & Output 05/13/20 05/13/20 05/14/20 11:59 23:59 11:59 Intake Total 1060 / 3522.5 2462.5 / 3522.5 1362.5 / 1362.5 Balance 1060 / 3522.5 2462.5 / 3522.5 1362.5 / 1362.5 Intake: IV 1000 / 2982.5 1982.5 / 2982.5 1362.5 / 1362.5 Oral 60 / 540 480 / 540 Other: Urine Color Yellow Yellow Pale Urine Appearance Clear Clear Clear Urine Odor Strong Normal Normal Comment brief and pad were soaked, continent in toilet Stool Size Moderate Stool Characteristics Formed Brown Voiding Methods Toilet Toilet Toilet Incontinent Data Completed and Pending Labs on day of discharge: Labs from last 24 hours 05/14/20 05/12/20 07:00 19:28 Sodium 145 Potassium 4.2 D Chloride 111 H Carbon Dioxide 24.7 Anion Gap 9.3 BUN 33 H D Creatinine 1.22 D Estimated GFR/1.73 m2 58.90 Glucose 137 H Calcium 8.5 COVID-19 PCR Negative Nasopharyn COVID-19 PCR Not Applicable Ref Test Perform Site [facility] Medical History Actinic keratitis (06/07/14) LEFT JEW/FOREHEAD Age-related macular degeneration Allergic rhinitis BPH w urinary obs/LUTS (03/01/16) Cataract Cervical disc prolapse with radiculopathy diskectomy/fusion 2000 Diverticulosis of colon without diverticulitis Elevated PSA (03/01/16) Essential hypertension (09/30/13) Weight and alcohol dependent Family hx of prostate cancer Gastroesophageal reflux disease HH; LAP JOSH Glioblastoma Gout Hematuria, unspecified History of DVT (deep vein thrombosis) History of tobacco use Hyperlipidemia Neoplasm of unspecified nature of bone, soft tissue, and skin (08/07/15) Obesity Shoulder pain right; full thickness tear 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 THORPE; RIGHT SIDE OF NECK; LEFT SIDE OF FOREHEAD Surgical History Appendectomy Correction, Hammertoe RIGHT nasal surgery left nasal polypoid lesion removed Vasectomy Family History Mother Stroke Father Heart disease Sister No problems noted. Sister No problems noted. Sister No problems noted. Sister No problems noted. Daughter No problems noted. Daughter No problems noted. Maternal Grandfather Edema Heart disease Paternal Grandfather , ACCIDENTAL at age 49. No problems noted. Paternal Grandmother No problems noted. Maternal Grandmother Stroke Social History Smoking/Tobacco Use Status: Former Tobacco Use Quit Date: 09/26/87 Alcohol Intake: former Drug use: Never Substance use type: does not use Caregiver/Support person: No Household members: spouse Pets and animals: No Do you think of yourself as: straight/heterosexual Duration: 45-60 minutes/day Frequency: 1-2 times per week Vanita/Lutheran: [employer] Special vanita needs: No Do you feel safe at home: Yes Do you feel safe in your relationship?: Yes
--- NOTE | 2020-05-14 15:29 | PDOC.CMDIS ---
LACE Index Scoring Tool - Questions: Length of Stay (in days): 2 Acuity (Admit via E.D.?): Yes Comorbidities: Mild Liver/Renal Disease, Any Tumor E.D. Visits: 3 - Answers: Total Score: 13 Risk of Readmission: High Risk Care Management Discharge Reason for Hospitalization: Renal Insufficiency Discharge Plan: Chad will return home when ready per MD. He will follow up with his PCP and plan of care as prescribed. He will transport via private vehicle with his . Patient/Family Education Needs: Review discharge instructions, discuss Ask Me Three. Services Needed at Discharge: Home Health Care Services (Resumption; no order required due to observation status)
== END 2020-05-14 11:31 | disposition home or self-care (01) ==
LOC: ER 19:34 → MS 19:47
PROVIDERS: Internal Medicine; Physician Assistant; Admitting Provider General Practice; Emergency Provider Physician Assistant; PCP Emergency Medicine; Visit Provider General Practice
DX: N17.9 Acute kidney failure, unspecified (principal); E86.0 Dehydration; N18.9 Chronic kidney disease, unspecified; C71.9 Malignant neoplasm of brain, unspecified; T38.0X5A Adverse effect of glucocorticoids and synthetic analogues, initial encounter; Z86.718 Personal history of other venous thrombosis and embolism; Z79.01 Long term (current) use of anticoagulants; Z79.899 Other long term (current) drug therapy; K21.9 Gastro-esophageal reflux disease without esophagitis; E09.65 Drug or chemical induced diabetes mellitus with hyperglycemia; T36.8X5A Adverse effect of other systemic antibiotics, initial encounter; Z11.59 Encounter for screening for other viral diseases; H35.3190 Nonexudative age-related macular degeneration, unspecified eye, stage unspecified; N40.1 Benign prostatic hyperplasia with lower urinary tract symptoms; K57.30 Diverticulosis of large intestine without perforation or abscess without bleeding; R97.20 Elevated prostate specific antigen [PSA]; M10.9 Gout, unspecified; R31.9 Hematuria, unspecified; Z87.891 Personal history of nicotine dependence; E78.5 Hyperlipidemia, unspecified; E66.9 Obesity, unspecified; M25.511 Pain in right shoulder; G40.89 Other seizures; J30.9 Allergic rhinitis, unspecified; Z79.84 Long term (current) use of oral hypoglycemic drugs; E09.22 Drug or chemical induced diabetes mellitus with diabetic chronic kidney disease; I12.9 Hypertensive chronic kidney disease with stage 1 through stage 4 chronic kidney disease, or unspecified chronic kidney disease
CPT/HCPCS: 36415; 80048; 80053; 82550; 96360; 99217; 99222; 99226; 99285; U0003; 81003; 84300; 84550; 85025; 99219; 99284; G0378; J3490; J8540

== ENCOUNTER 2020-05-21 10:05 | Inpatient (IN) | payer MEDICARE, OTHER, SELFPAY ==
[2020-05-21] VITALS (35 sets, daily range): BP systolic 82–118; BP diastolic 50–104; PULSE 51–131; RESP 17–29; TEMP 36.3–36.9; O2SAT 97–100
--- NOTE | 2020-05-21 10:03 | W.ED.GENAD ---
Discharge Plan Disposition Patient Disposition: [facility] INPATIENT Condition: Poor Discharge Details Chief Complaint: GenMedical Clinical Impression: Sepsis, Cellulitis of foot, right Admit Date/Time: 05/21/20 12:56 Admit Provider: Karsten Mckay Attending Provider: Karsten Mckay Primary Care Provider: Sunday Orellana ED Provider: Clare Luther Discharge Data Discharge Date/Time-TO BE ENTERED AT DEPARTURE: 05/21/20 14:00 Medical Decision Making Patient is a pleasant 70-year-old male, well-known to myself and department, presenting today with chief complaint of fever. Patient is currently undergoing oral chemotherapy. He is brought in via EMS. Family noted open wound to the dorsal aspect of the right foot sometime ago. Had initially been hearing well. However, yesterday began noting some erythema. They state that this morning it was much worse and had spread up the leg. He was not having any evidence of systemic illness until today. Reports T-max of 102 ?F while at home. They report diminished p.o. intake with a sounds to be chronic and associated with the patient's chemotherapeutic agents. Patient is poor historian and very limited in accurate information he is able to give. He is denying any pain at this point. Reports feeling quite well. Patient was recently admitted for acute kidney injury associated with nephrotoxic medications. Family reports that since the cessation of his lisinopril and HCTZ during said admission, his bilateral lower extremities have continued to swell. He has not had any shortness of breath or difficulty that They have noted. On exam, patient appears acutely ill. He is tachycardic and hypertensive. He has notable erythema, warmth and discomfort right lower extremity that extends up to the knee. He has a wound with darkened tissue circling it on the dorsal aspect of the right foot with central area of opening. Most concerning at this time for cellulitis. Does not seem to have pain with rotation or movement of his toes. Have lower suspicion for osteomyelitis. Per daughter's report, this to develop yesterday. Plan for x-ray of the foot to look for any free air though I do not appreciate any crepitus on exam. He has good capillary refill. Lungs are clear. Cardiac exam significant for tachycardia. No nuchal rigidity. Denies any headache. No pain in his abdomen with palpation. Plan to rule out other source of infection but I am concerned patient is in septic associated with right lower extremity infection. Patient was recently admitted for acute kidney injury. His creatinine today is 1.61 with a GFR 42. We will begin the patient on Vanco and Unasyn. We will also replace the patient's magnesium which is currently 1.1. FINDINGS: Bones/joints: Prior surgery involving the great toe. Hallux valgus deformity. Deformity of the head of the 5th metatarsal most likely postsurgical. Osteopenia. Plantar calcaneal spur and hypertrophic changes involving the insertion of Achilles tendon. There is deformity of the head of the 2nd metatarsal most likely represents osteonecrosis. Soft tissues: There is suggestion of a defect in the skin lateral to the 5th metatarsal. There are some subtle lucencies seen involving the base of the proximal phalanx of the little toe. Osteomyelitis cannot be excluded. IMPRESSION: There is suggestion of a defect in the skin lateral to the 5th metatarsal. There are some subtle lucencies seen involving the base of the proximal phalanx of the little toe. Osteomyelitis cannot be excluded. Clinical correlation is recommended. XR reviewed, concerned for potential osteomyelitis of the pinky toe. However, this does not correlate clinically as is not the area of discomfort, erythema and patient has no pain with movement or palpation over this area. FINDINGS: Lungs: Unremarkable. No consolidation. Pleural space: Unremarkable. No pleural effusion. No pneumothorax. Heart/Mediastinum: Unremarkable. No cardiomegaly. Bones/joints: Unremarkable. IMPRESSION: No acute findings. Patient does have numerous surgical clips in the left upper abdomen. Patients started on Vancomycin and zosyn. 2g of magnesium ordered. Concern for septicemia associated with quickly progressing RLE cellulitis. Consulted with general surgery. At this point, there does not appear to be need for surgical debridement but advised that they will likely have to be involved in the patient's care while in-house. Agree with antibiotic selection. Consulted with Dr. Adhikari with oncology at [facility]. He advised that patient is on Avastin and Timidar. He is familiar with the patient. Advises consultation with palliative care. He agrees with the plan thus far with IV antibiotics. We did discuss the patient's significant lower extremity edema and at this point we will hydrate the patient as he is hypotensive with evidence of septicemia. We will wrap the patient's legs to help with lower extremity edema. Consulted with hospitalist who agrees with patient and admission HPI General Mode of arrival: EMS. Date/Time Provider Initiated Documentation: 05/21/20 10:16. Limitations to Documentation: altered mental status. Information obtained by: family, EMS, RN notes reviewed and old records reviewed. HPI Narrative: Patient is a pleasantly confused 70-year-old male brought in via EMS with concern for fever at home. Patient is currently undergoing oral chemotherapy for glioblastoma. Patient also underwent a partial frontal lobectomy this summer for same. Has been admitted multiple times recently. Was admitted recently for an acute kidney injury associated with nephrotoxic drugs and dehydration. After cessation of multiple medications including Bactrim, Lasix and HCTZ, his creatinine did vastly improved. Per the patient's daughter who is his primary healthcare agent, he had his creatinine rechecked at [facility]. Is reporting GFR of 50. However, family's been concerned that his bilateral lower extremity swelling has greatly increased. She states that he has had a small sore on the right foot that sounds to have been worsening recently and is now having oozing. She has reports that he has had increased fatigue over the past several days. Was noted to feel warm per the this morning. EMS reported a T-max of 102 ?F. Patient is denying any pain. However, the daughter does report that with palpation of his lower extremities he does appear uncomfortable despite his denial of discomfort. Have not noted any cough, shortness of breath or other evidence to suggest infection. Related Data Home Medications Medication Instructions Recorded Confirmed multivitamin [Daily Value] 2 ea PO DAILY 11/04/12 05/21/20 allopurinol 100 mg tablet 200 mg PO DAILY #180 tab-cap 08/11/19 05/21/20 atorvastatin [Lipitor] 10 mg PO DAILY 04/24/20 05/21/20 ondansetron 4 mg PO Q8H PRN 04/24/20 05/22/20 pantoprazole 40 mg PO DAILY 04/24/20 05/21/20 sennosides [senna] 17.2 mg PO QHS 04/24/20 05/21/20 thiamine HCl (vitamin B1) 100 mg PO DAILY 04/24/20 05/21/20 tamsulosin 0.4 mg capsule 0.4 mg PO DAILY #30 cap 04/27/20 05/21/20 apixaban 5 mg tablet 5 mg PO BID 05/09/20 05/21/20 metformin 500 mg tablet See Rx Instructions .ROUTE .COMPLEX 05/09/20 05/21/20 acetaminophen 650 mg PO Q6H PRN 05/12/20 05/21/20 dexamethasone 3 mg PO DAILY 05/12/20 05/21/20 levetiracetam 500 mg PO BID 05/12/20 05/21/20 melatonin 2.5 mg PO HS 05/12/20 05/21/20 pyridoxine (vitamin B6) 50 mg PO DAILY 05/12/20 05/21/20 temozolomide See Rx Instructions .ROUTE .COMPLEX 05/12/20 05/21/20 Previous Rx's Medication Instructions Recorded allopurinol 100 mg tablet 200 mg PO DAILY #180 tab-cap 08/11/19 tamsulosin 0.4 mg capsule 0.4 mg PO DAILY #30 cap 04/27/20 Allergies Allergy/AdvReac Type Severity Reaction Status Date / Time No Known Allergies Allergy Verified 05/21/20 11:21 General JOSIE: 3 Review of Systems Unobtainable due to mental status [facility] Medical History Actinic keratitis (06/07/14) LEFT LATTER-DAY/FOREHEAD Age-related macular degeneration Allergic rhinitis BPH w urinary obs/LUTS (03/01/16) Cataract Cervical disc prolapse with radiculopathy diskectomy/fusion 2000 Diverticulosis of colon without diverticulitis Elevated PSA (03/01/16) Essential hypertension (09/30/13) Weight and alcohol dependent Family hx of prostate cancer Gastroesophageal reflux disease HH; LAP JOSH Glioblastoma Gout Hematuria, unspecified History of DVT (deep vein thrombosis) History of tobacco use Hyperlipidemia Neoplasm of unspecified nature of bone, soft tissue, and skin (08/07/15) Obesity Shoulder pain right; full thickness tear 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 THORPE; RIGHT SIDE OF NECK; LEFT SIDE OF FOREHEAD Surgical History Appendectomy Correction, Hammertoe RIGHT nasal surgery left nasal polypoid lesion removed Vasectomy Family History Mother Stroke Father Heart disease Sister No problems noted. Sister No problems noted. Sister No problems noted. Sister No problems noted. Daughter No problems noted. Daughter No problems noted. Maternal Grandfather Edema Heart disease Paternal Grandfather , ACCIDENTAL at age 49. No problems noted. Paternal Grandmother No problems noted. Maternal Grandmother Stroke Social History Smoking/Tobacco Use Status: Former Tobacco Use Quit Date: 09/26/87 Alcohol Intake: former Drug use: Never Substance use type: does not use Caregiver/Support person: No Household members: spouse Pets and animals: No Do you think of yourself as: straight/heterosexual Duration: 45-60 minutes/day Frequency: 1-2 times per week Vanita/Temple: [employer] Special vanita needs: No Do you feel safe at home: Yes Do you feel safe in your relationship?: Yes Exam Const General: cooperative, not healthy appearing, comfortable, no acute distress, well developed and ill appearing acutely and chronically Nutritional Appearance: average body habitus and well nourished Orientation: alert, awake and oriented to person HENNH Head: normal to inspection Ears: hearing grossly normal bilaterally Mouth: moist mucous membranes Chest Chest: normal inspection of the chest, normal palpation of entire chest wall and no crepitus Resp Effort & Inspection: normal respiratory effort, able to speak in complete sentences and no respiratory distress Auscultation: clear to auscultation bilaterally, no rales, no rhonchi and no wheezes Cardio Rate: regular rate Rhythm: regular rhythm Heart Sounds: S1 normal and S2 normal GI Inspection: normal to inspection, no edema and non-distended Palpation: soft, no hepatosplenomegaly, not firm, no guarding, not rigid and nontender Auscultation: normal bowel sounds Back/Spine/Pelvis Back: no CVA tenderness Thoracic/Lumbar Spine: thoracic and lumbar spine normal to inspection Skin General skin exam: erythema (as below) Neuro General: patient alert, patient awake and not oriented x3 Cognition: abnormal cognition (baseline for patient) Speech: speech normal Extrem General: normal to inspection, capillary refill normal, no pedal edema, no calf tenderness and normal gait Psych Appearance: grossly normal and well kempt Mental Status: mental status grossly normal Speech and Movement: speech and movement normal
--- NOTE | 2020-05-21 10:15 | DI.RAD_ITS ---
EXAM: XR PORTABLE CHEST AP CLINICAL HISTORY: fever, undergoing chemo. TECHNIQUE: 2D digital imaging was performed. COMPARISON: No exams were available for comparison FINDINGS: LUNGS: Clear. No pleural abnormality seen. HEART: Normal. MEDIASTINUM: Normal. OTHER FINDINGS: None. IMPRESSION: No acute pulmonary findings. DATA REPOSITORY: RADIATION DOSE DELIVERED: Total DLP
[2020-05-21 10:44] LABS: Abs Immature Grans 0.04 10^3/uL (0.0-0.06); HCT 34.8 % (40.0-50.0); HGB 11.8 g/dL (13.5-17.5); Lactate 2.4 mmol/L (0.6-1.4); MCH 31.4 pg (27.0-33.0); MCHC 33.9 % (32.0-36.0); MCV 92.6 fL (80-95); MPV 11.2 fL (8.0-11.0); Nucleated RBC 0 %; Platelet Count 120 10^3/uL (130-400); RBC 3.76 10^6/uL (4.36-5.78); RDW 13.2 % (11.8-14.1); RDW-SD 43.6 fL; WBC 9.63 10^3/uL (4.4-10.8)
--- NOTE | 2020-05-21 10:45 | DI.RAD_ITS ---
EXAM: XR FOOT RT COMPLETE CLINICAL HISTORY: portable, concern for infection TECHNIQUE: COMPARISON: CR RIGHT FOOT COMPLETE from 11/06/2012 FINDINGS: Three views were obtained. There are degenerative changes of the MTP joints and IP joints as well as the joints of the midfoot. No gross bony erosive or destructive lesion. Question lateral skin ulce ration at the base of the head of the 5th metatarsal. IMPRESSION: No specific evidence of osteomyelitis radiographically. If there is a clinical suspicion of osteomye litis additional evaluation with MR examination would be recommended. RADIATION DOSE DELIVERED: Total DLP
[2020-05-21] MEDS: Normal Saline 1,000 ML 1000 ML IV (10:47)
[2020-05-21] MEDS: ACETAMINOPHEN 1,000 MG/100 ML BTL 400 MG IVPB (10:51)
[2020-05-21 11:02] LABS: ALT 41 U/L (16-63); AST 25 U/L (15-37); Albumin 3.1 g/dL (3.4-5.0); Alkaline Phosphatase 62 U/L (46-116); Anion Gap 10.9 mmol/L (3-11); BUN 29 mg/dL (7-18); Bilirubin, Total 0.7 mg/dL (0.2-1.0); CO2 22.1 mmol/L (21.0-32.0); CREATININE 1.61 mg/dL (0.70-1.30); Calcium 9.1 mg/dL (8.5-10.1); Chloride 109 mmol/L (98-107); Estimated GFR 42.76 (mL/min/1.73m2); Glucose 142 mg/dL (74-106); Magnesium 1.1 mg/dL (1.8-2.4); NT-proBNP 1401 pg/mL (<300); Potassium 3.4 mmol/L (3.5-5.1); Sodium 142 mmol/L (136-145)
[2020-05-21 11:05] LABS: Absolute Lymphocyte Count 0.77 10^3/uL (1.2-3.4); Absolute Monocyte Count 0.39 10^3/uL (0.1-0.8); Absolute Neutrophil Count 8.47 10^3/uL (1.2-6.7); Bands % 14
[2020-05-21 11:06] LABS: Polychromasia Present
[2020-05-21 11:07] LABS: Diff Comment Manual Differential
--- NOTE | 2020-05-21 11:14 | DI.VRAD_ITS ---
PROCEDURE INFORMATION: Exam: XR Chest, 1 View Exam date and time: 05/21/2020 10:54 AM Age: 70 years old Clinical indication: Fever TECHNIQUE: Imaging protocol: XR of the chest Views: 1 view. COMPARISON: CT CHEST/ABD/PEL W 02/11/2020 1:54 PM FINDINGS: Lungs: Unremarkable. No consolidation. Pleural space: Unremarkable. No pleural effusion. No pneumothorax. Heart/Mediastinum: Unremarkable. No cardiomegaly. Bones/joints: Unremarkable. IMPRESSION: No acute findings. Patient does have numerous surgical clips in the left upper abdomen. Dictated and Authenticated by: Carmelita Lyons MD. Ordering:DIPIKA Sparks MD
--- NOTE | 2020-05-21 11:22 | DI.VRAD_ITS ---
PROCEDURE INFORMATION: Exam: XR Right Foot Complete Exam date and time: 05/21/2020 11:06 AM Age: 70 years old Clinical indication: Swelling, leg or foot; Patient HX: Swelling in foot and leg x 2 days. Fever of 102 F TECHNIQUE: Imaging protocol: XR Right foot. Views: 3 or more views. COMPARISON: No relevant prior studies available. FINDINGS: Bones/joints: Prior surgery involving the great toe. Hallux valgus deformity. Deformity of the head of the 5th metatarsal most likely postsurgical. Osteopenia. Plantar calcaneal spur and hypertrophic changes involving the insertion of Achilles tendon. There is deformity of the head of the 2nd metatarsal most likely represents osteonecrosis. Soft tissues: There is suggestion of a defect in the skin lateral to the 5th metatarsal. There are some subtle lucencies seen involving the base of the proximal phalanx of the little toe. Osteomyelitis cannot be excluded. IMPRESSION: There is suggestion of a defect in the skin lateral to the 5th metatarsal. There are some subtle lucencies seen involving the base of the proximal phalanx of the little toe. Osteomyelitis cannot be excluded. Clinical correlation is recommended. Dictated and Authenticated by: Carmelita Lyons MD. Ordering:DIPIKA Sparks MD
[2020-05-21] MEDS: MAGNESIUM SULFATE 2 GM/50 ML BAG IVPB (11:25)
[2020-05-21] MEDS: PIPERACILLIN/TAZO 3.375 GM in Normal Saline 50 ML IVPB ×2 (11:35→17:16)
--- NOTE | 2020-05-21 11:45 | DI.CT_ITS ---
EXAM: CT LOWER EXTREMITY RT WO CLINICAL HISTORY: infection TECHNIQUE: COMPARISON: No exams were available for comparison FINDINGS: CT examination of the lower extremity was performed. There is nonspecific us soft tissue edema of th e lower leg and foot, particularly the dorsum of the foot. No gross abscess or bony erosion identifi ed. Incidental note is made of a wire suture of the proximal phalanx of the great toe. IMPRESSION: No gross evidence of abscess or osteomyelitis. If there is a high clinical suspicion of osteomyeliti s additional evaluation with MR may be considered. RADIATION DOSE DELIVERED: 646.35mGy.cm Total DLP
[2020-05-21] MEDS: levETIRAcetam 500 MG TAB PO ×2 (12:47→20:44)
[2020-05-21] MEDS: Dexamethasone 1 MG TAB 3 MG PO (12:48)
--- NOTE | 2020-05-21 13:11 | DI.VRAD_ITS ---
PROCEDURE INFORMATION: Exam: CT Right Lower Extremity Without Contrast Exam date and time: 05/21/2020 11:51 AM Age: 70 years old Clinical indication: Swelling, leg or foot; Patient HX: Right leg swelling, on chemo; Additional info: Extra recons of foot, main swelling and pain. TECHNIQUE: Imaging protocol: CT of the Right lower extremity without contrast was performed. Radiation optimization: All CT scans at this facility use at least one of these dose optimization techniques: automated exposure control; mA and/or kV adjustment per patient size (includes targeted exams where dose is matched to clinical indication); or iterative reconstruction. COMPARISON: CR - XR FOOT RT COMPLETE 05/21/2020 10:58:00 AM FINDINGS: Bones/joints: No acute fracture or dislocation is identified. There is again deformity of the 5th metatarsal, likely postoperative. Metallic clip is again present in the 1st proximal phalanx. There are degenerative changes of the knee, ankle and foot. Bipartite patella is noted. There is no osseous erosion or cortical destruction. Soft tissues: Mild subcutaneous edema extends from the lateral thigh proximal to the field of view, and becomes more circumferential and moderate through the mid to distal leg, with moderate circumferential extension through the ankle. In the foot, there is marked subcutaneous edema over the dorsal aspect with mild plantar subcutaneous edema. No gross collection to suggest abscess is evident on this unenhanced exam. There is no abnormal soft tissue gas. Vasculature: Multiple small calcifications in the soft tissues are likely vascular. IMPRESSION: 1. Subcutaneous edema about much of the visualized lower extremity as described, without gross abscess or abnormal soft tissue gas. 2. No CT evidence for osteomyelitis. 3. Degenerative changes. Dictated and Authenticated by: Nba Lagos MD. Ordering:DIPIKA Sparks MD
--- NOTE | 2020-05-21 14:44 | HPE_ITS ---
Date of service: 05/21/20 Time of Service: 14:45 Assessment and Plan Assessment and plan (1) History of DVT (deep vein thrombosis): Status: Acute Assessment and plan: Cont Eliquis No evidence of any bleeding. + ecchymoses of dorsum of R foot. (2) Renal insufficiency: Status: Chronic Assessment and plan: Given 1L NS bolus in ED NS at 75ml/hr overnight. Careful hydration given an elevated BNP and pedal edema. No signs/symptoms of pulmonary edema. Is on Vancomycin for cellulitis that could worsen renal function. Monitor. (3) Glioblastoma: Status: Acute Assessment and plan: s/p partial resection of frontal lobe. On oral chemotherapy; not currently. Uses [employer] device for treatment. (4) Edema: Status: Acute Assessment and plan: With elevated BNP, will order echocardiogram. His amlodipine was recently d/c'd by PCP to see if this was at least part of the etiology of his pedal edema. Elevated BLE's. ELLA wraps. Qualifiers: Edema type: localized Qualified Code(s): R60.0 - Localized edema (5) Gout: Status: Acute Assessment and plan: Cont allopurinol (6) Hyperlipidemia: Status: Acute Assessment and plan: Cont Atorvastatin (7) Cellulitis of foot, right: Status: Acute Assessment and plan: Fever and mildly elevated venous lactate level, left shift / bandemia. Initiated Vancomysin and Zosyn in the ED; continue Monitor creatinine. Repeat lactate. (8) Sepsis: Status: Acute Assessment and plan: Hypotension, bandemia, tachycardia, fever. Source; cellulitis of foot. Zosyn and Vancomycin initiated. Repeat lactate pending. ANC 8000 cell/uL Qualifiers: Sepsis acute organ dysfunction status: without acute organ dysfunction History of Present Illness History of Present Illness Chief Complaint: Fever Narrative: This is a 70 yo male with a recent h/o glioblastoma dxd this summer, s/p prtial frontal lobectomy on oral chemotherapy, acute kidney injury hospitalized on 05/12/2020 - 05/14/2020 at [facility], BPH, Essential hypertension, GERD, Gout, HLD, squamous cell CA of neck, previous tobacco abuse. He was brought to ED via EMS d/t fever of 102F at home. Family has noted a sore on the dorsum of the R foot that has worsened and has had some drainage. Today there was a bruise around the area that wasn't noted before. The patient doesn't recall if he traumatized the foot or not. His daughter gives his history and she is is primary healthcare agent. She reported noting that he has been more fatigued over the last several days. He has had no cough/sputum, SOA, runny nose, diarrhea. In the ED noncontrast CT of the R foot showed subcutaneous edema but no evidence of an abscess or aziza involvement. His WBC count is normal but there is a bandemia. His creatinine was 1.61. His last admission was for an acute kidney injury; nephrotoxic agents and dehydration were thought to be responsible. Bactrim, lasix and HCTZ were stopped and his creatinine normalized from 3.6 to 1.22. His Mg was low at time of this admission at 1.1. He was given 2 gram of IV magnesium sulfate. His venous blood lactate was elevated at 2.4. He was given a 1L NS bolus. His NT-proBNP was elevated at 1401. No previous BNP results in the chart. Review of Systems All systems reviewed & are unremarkable except as noted in HPI and below PFSH Medical History Actinic keratitis (06/07/14) LEFT YAZIDI/FOREHEAD Age-related macular degeneration Allergic rhinitis BPH w urinary obs/LUTS (03/01/16) Cataract Cervical disc prolapse with radiculopathy diskectomy/fusion 2000 Diverticulosis of colon without diverticulitis Elevated PSA (03/01/16) Essential hypertension (09/30/13) Weight and alcohol dependent Family hx of prostate cancer Gastroesophageal reflux disease HH; [facility] Glioblastoma Gout Hematuria, unspecified History of DVT (deep vein thrombosis) History of tobacco use Hyperlipidemia Neoplasm of unspecified nature of bone, soft tissue, and skin (08/07/15) Obesity Shoulder pain right; full thickness tear 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 THORPE; RIGHT SIDE OF NECK; LEFT SIDE OF FOREHEAD Surgical History Appendectomy Correction, Hammertoe RIGHT nasal surgery left nasal polypoid lesion removed Vasectomy Family History Mother Stroke Father Heart disease Sister No problems noted. Sister No problems noted. Sister No problems noted. Sister No problems noted. Daughter No problems noted. Daughter No problems noted. Maternal Grandfather Edema Heart disease Paternal Grandfather , ACCIDENTAL at age 49. No problems noted. Paternal Grandmother No problems noted. Maternal Grandmother Stroke Social History Smoking/Tobacco Use Status: Former Tobacco Use Quit Date: 09/26/87 Alcohol Intake: former Drug use: Never Substance use type: does not use Caregiver/Support person: No Household members: spouse Pets and animals: No Do you think of yourself as: straight/heterosexual Duration: 45-60 minutes/day Frequency: 1-2 times per week Vanita/Mosque: Roman Catholic Special vanita needs: No Do you feel safe at home: Yes Do you feel safe in your relationship?: Yes Meds Home Medications and Allergies Home Medications Medication Instructions Recorded Confirmed Type multivitamin [Daily Value] 2 ea PO DAILY 11/04/12 05/21/20 History allopurinol 100 mg tablet 200 mg PO DAILY #180 tab-cap 08/11/19 05/21/20 Rx atorvastatin [Lipitor] 10 mg PO DAILY 04/24/20 05/21/20 History ondansetron 8 mg PO Q8H PRN 04/24/20 05/21/20 History pantoprazole 40 mg PO DAILY 04/24/20 05/21/20 History sennosides [senna] 17.2 mg PO QHS 04/24/20 05/21/20 History thiamine HCl (vitamin B1) 100 mg PO DAILY 04/24/20 05/21/20 History tamsulosin 0.4 mg capsule 0.4 mg PO DAILY #30 cap 04/27/20 05/21/20 Rx apixaban 5 mg tablet 5 mg PO BID 05/09/20 05/21/20 History metformin 500 mg tablet See Rx Instructions .ROUTE .COMPLEX 05/09/20 05/21/20 History acetaminophen 650 mg PO Q6H PRN 05/12/20 05/21/20 History dexamethasone 3 mg PO DAILY 05/12/20 05/21/20 History levetiracetam 500 mg PO BID 05/12/20 05/21/20 History melatonin 2.5 mg PO HS 05/12/20 05/21/20 History pyridoxine (vitamin B6) 50 mg PO DAILY 05/12/20 05/21/20 History temozolomide See Rx Instructions .ROUTE .COMPLEX 05/12/20 05/21/20 History Allergies Allergy/AdvReac Type Severity Reaction Status Date / Time No Known Allergies Allergy Verified 05/21/20 11:21 Exam Const General: cooperative and no acute distress Nutritional Appearance: average body habitus Orientation: alert, oriented to person and oriented to place [facility] Head: other (Optune device in place) Eyes Sclera: sclerae normal EOM: EOM intact bilaterally Neck Neck: full ROM and supple Resp Effort & Inspection: normal respiratory effort Auscultation: clear to auscultation bilaterally and diminished lung sounds Cardio Jugular venous pressure: no JVD Rate: regular rate Rhythm: regular rhythm Heart Sounds: S1 normal and S2 normal GI Palpation: soft and nontender Auscultation: hypoactive bowel sounds Skin Full body images: 1. Ecchymotic area with mild surrounding erythema. No drainage. + edema but no specific fluctuance. Neuro General: patient alert and moves all extremities Motor: tremor bilateral upper extremity resting tremor Extrem General: no calf tenderness, edema Laterality: bilateral and pedal edema bilaterally 2+ Psych Appearance: grossly normal Affect: blunted Attitude: cooperative Results Labs Result diagrams: 05/21/20 09:20 05/21/20 09:20 Labs: Laboratory Results - last 24 hr 05/21/20 05/21/20 05/21/20 09:20 09:20 09:20 WBC 9.63 RBC 3.76 L Hgb 11.8 L Hct 34.8 L MCV 92.6 MCH 31.4 MCHC 33.9 RDW 13.2 Plt Count 120 L MPV 11.2 H Immature Gran % 0.0 Neutrophils % 74.0 Band Neutrophils % 14 Lymphocytes % 8.0 Monocytes % 4.0 Eosinophils % 0.0 Basophils % 0.0 Nucleated RBC % 0 Absolute Neutrophils 8.47 H Absolute Lymphocytes 0.77 L Absolute Monocytes 0.39 Absolute Eosinophils 0.00 Absolute Basophils 0.00 RBC Morphology See below Polychromasia Present VBG Lactate 2.4 H* Sodium 142 Potassium 3.4 L Chloride 109 H Carbon Dioxide 22.1 Anion Gap 10.9 BUN 29 H Creatinine 1.61 H Estimated GFR/1.73 m2 42.76 Glucose 142 H Calcium 9.1 Magnesium 1.1 L Total Bilirubin 0.7 AST 25 ALT 41 Alkaline Phosphatase 62 NT-Pro-B Natriuret Pep 1401 H Total Protein 6.0 L Albumin 3.1 L 05/21/20 10:26 WBC RBC Hgb Hct MCV MCH MCHC RDW Plt Count MPV Immature Gran % Neutrophils % Band Neutrophils % Lymphocytes % Monocytes % Eosinophils % Basophils % Nucleated RBC % Absolute Neutrophils Absolute Lymphocytes Absolute Monocytes Absolute Eosinophils Absolute Basophils RBC Morphology Polychromasia VBG Lactate Sodium Potassium Chloride Carbon Dioxide Anion Gap BUN Creatinine Estimated GFR/1.73 m2 Glucose Calcium Magnesium Total Bilirubin AST ALT Alkaline Phosphatase NT-Pro-B Natriuret Pep Cancelled Total Protein Albumin Last Vital Signs Temp 36.6 C 05/21/20 10:11 Pulse 51 L 05/21/20 13:30 Resp 20 05/21/20 13:31 BP 95/50 L 05/21/20 13:30 Pulse Ox 97 05/21/20 13:00 COVID-19 Screening Have you,or household,traveled outside [place] in last 14 days?: Yes Had IN PERSON contact w/suspected or confirmed C-19 person: No
[2020-05-21 16:34] LABS: Lactate 2.4 mmol/L (0.6-1.4)
[2020-05-21] MEDS: Normal Saline Flush 10 ML SYR IVP (17:03)
[2020-05-21] MEDS: Insulin Aspart 300 UNITS/3 ML PEN SC (17:04)
[2020-05-21] MEDS: Magnesium Oxide 400 MG TAB PO (20:43)
[2020-05-21] MEDS: Apixaban 5 MG TAB PO (20:44)
[2020-05-21] MEDS: Melatonin 3 MG TAB PO (21:40)
[2020-05-21] MEDS: Senna TAB 2 TAB PO (21:40)
[2020-05-22] VITALS (64 sets, daily range): BP systolic 92–126; BP diastolic 56–78; PULSE 71–122; RESP 11–29; TEMP 36–37.3; O2SAT 89–100
--- NOTE | 2020-05-22 | DI.US_ITS ---
APPROVED REPORT EXAM: Comprehensive 2D, Doppler, and color-flow Echocardiogram Patient Location: In-Patient Room/Bed: [id number] Cell[employer] Worker: Bhargavi Bond RDCS (AE) Indications: Elevated BNP, Edema Other Information Study Quality: Adequate Conclusion Normal left ventricular wall thickness and chamber size. Estimated ejection fraction is 55 to 60%. There are no segmental wall motion abnormalities Normal right ventricular size and function Both atria are normal in size Aortic valve is trileaflet and mildly sclerotic without stenosis or regurgitation Mildly thickened mitral leaflets. Trace to mild mitral regurgitation Structurally normal tricuspid and pulmonic valves, with trace regurgitation. Normal estimated right ventricular systolic pressure Ascending aorta is mildly dilated measuring 4.3 cm Wall motion Left Ventricle The left ventricle is normal size. The left ventricular systolic function is normal. The left ventric ular ejection fraction is within the normal range. There is normal left ventricular wall thickness. T here is normal LV segmental wall motion. There is no ventricular septal defect visualized. LVEF is 55 -60%. Right Ventricle Right ventricle is grossly normal in size. Right ventricular systolic function is grossly normal. The RVSP is 21.1mmHg. Atria The left atrium size is normal. The right atrium size is normal. The interatrial septum is intact wit h no evidence for an atrial septal defect. Aortic Valve The Aortic valve is sclerotic. Aortic valve is trileaflet. There is no aortic valvular stenosis. No a ortic regurgitation is present. Mitral Valve Mild mitral annular calcification. No evidence of mitral valve stenosis. Trace to mild mitral regurgi tation. Tricuspid Valve The tricuspid valve is normal in structure. There is no tricuspid valve stenosis. Trace tricuspid reg urgitation. Pulmonic Valve The pulmonary valve is normal in structure. There is no pulmonic valvular stenosis. Trace pulmonic re gurgitation. Great Vessels The aortic root is normal in size. The ascending aorta is severely dilated. Aortic arch is normal in caliber. The IVC is normal in size and collapses >50% with inspiration. Pericardium There is no pericardial effusion. 2D Dimensions IVSD d PLAX 1.04 cm M: 0.6-1.2 LV Vol A2C d MOD 92.5 mL LVPW d PLAX 1.02 cm M: 0.6 - 1.2 LV Vol A4C d MOD 165.7 mL LVID d PLAX 5.74 cm M: 4.2 - 5.8 LA vol/ BSA A2C s A-L 17.8 mL/m2 LVDs 4.20 cm M: 2.5 - 4.0 LA vol/ BSA A4C s A-L 25.0 mL/m2 Ao Root d 3.14 cm M: 3.1 - 3.7 LA Vol/ BSA Biplane s A-L 21.3 mL/m2 RA Area A4C 10.06 cm2 LA Area A4C s MOD 18.72 cm2 RA Vol/ BSA A4C s A-L 10.6 mL/m2 LA Area A2C s MOD 15.68 cm2 Ao Asc Diam d 4.31 cm M: 2.6 - 3.4 LV EF A4C MOD 49.2 % LV EF Teichholz 51.2 % LV EF A2C MOD 48.5 % LVEF (Potter's) 48.79 % M: 52 - 72 LV EF Biplane MOD 48.8 % LV Volume 91.46 mL M: 62 - 150 SV 60.85 mL LV Volume Index 42.73 mL/m2 M: 34 - 74 SV Index 28.40 mL/m2 LV Vol Biplane MOD 124.7 mL FS 26.50 % M-Mode TAPSE 1.75 cm (M/F) >1.7 LV Diastology MV E' medial 0.054 (>0.07 m/s) E/A Ratio 0.7 LV E/e MED 9.30 (<14) MV E Vmax 0.50 (0.4-1.3 m/s) MV E' lateral 0.075 (>0.1 m/s) MV A Vmax 0.70 (0.4-1.3 m/s) LV E/e LAT 6.70 (<14) MV E/A Ratio 0.70 MV E/E' medial 9.32 MV E/E' lateral 6.72 Aortic Valve LVOT Area 3.06 cm2 AoV Area Vmax 2.08 cm2 LVOT Vmax 1.19 m/s AoV Area/ BSA (Vmax) 0.97 cm2/m2 LVOT Mean Dawit. 0.76 m/s SUSAN Mean Dawit. 1.80 cm2 LVOT Peak Grad 5.6 mmHg SUSAN Mean Dawit. Index 0.84 cm2/m2 LVOT Mean Grad 2.7 mmHg LVOT VTI 0.219 m LVOT Diam s 1.95 cm AoV Vmax 1.75 m/s Velocity Ratio 0.68 AoV Mean Dawit. 1.29 m/s AoV Peak Grad 12.2 mmHg LVOT SV 66.83 mL AoV Mean Grad 7.2 mmHg AoV VTI 0.294 m AoV Area VTI 2.28 cm2 AoV Area/ BSA (VTI) 1.06 cm/m2 Mitral Valve MV DT 333 (160-240 msec) MR Vmax 4.01 m/s MV PHT 97 msec MR VTI 0.928 m MV Area PHT 2.28 cm2 MR Peak Grad 64.3 mmHg MV VTI 0.203 m MR Mean Grad 47.7 mmHg MV VTI Annulus 0.210 m MR PISA Radius 0.33 cm MV Area VTI 3.40 (4.0-6.0 cm2) MR EROA 0.06 cm2 MR Aliasing Velocity 0.35 m/s MR PISA 0.67 cm2 Pulmonary Valve PV Vmax 1.01 (0.5-1.5 m/s) RVOT Peak Gr. 1.41 mmHg PV Peak Grad 4.1 mmHg RVOT Mean Gr. 0.75 mmHg PV Mean Grad 2.1 mmHg RVOT VTI 0.095 m PV VTI 0.160 m RVOT Vmax 0.59 m/s Tricuspid Valve TR Peak Grad 18.0 mmHg TR Vmax 2.13 m/s RA Pressure 3.00 mmHg RVSP (TR) 21.1 mmHg
[2020-05-22] MEDS: PIPERACILLIN/TAZO 3.375 GM in Normal Saline 50 ML IVPB ×4 (00:20→18:48)
[2020-05-22 06:46] LABS: Abs Immature Grans 0.47 10^3/uL (0.0-0.06); HCT 29.4 % (40.0-50.0); HGB 9.8 g/dL (13.5-17.5); MCH 30.9 pg (27.0-33.0); MCHC 33.3 % (32.0-36.0); MCV 92.7 fL (80-95); MPV 11.7 fL (8.0-11.0); Nucleated RBC 0 %; RBC 3.17 10^6/uL (4.36-5.78); RDW 13.5 % (11.8-14.1); WBC 12.15 10^3/uL (4.4-10.8)
[2020-05-22 07:02] LABS: ALT 30 U/L (16-63); AST 25 U/L (15-37); Albumin 2.2 g/dL (3.4-5.0); Alkaline Phosphatase 48 U/L (46-116); Anion Gap 8.1 mmol/L (3-11); BUN 25 mg/dL (7-18); Bilirubin, Total 0.6 mg/dL (0.2-1.0); CO2 21.9 mmol/L (21.0-32.0); Calcium 8.1 mg/dL (8.5-10.1); Chloride 111 mmol/L (98-107); Glucose 127 mg/dL (74-106); Magnesium 1.4 mg/dL (1.8-2.4); Potassium 3.8 mmol/L (3.5-5.1); Sodium 141 mmol/L (136-145); Total Protein 4.8 g/dL (6.4-8.2)
[2020-05-22 07:23] LABS: Absolute Lymphocyte Count 0.61 10^3/uL (1.2-3.4); Absolute Monocyte Count 0.49 10^3/uL (0.1-0.8); Absolute Neutrophil Count 10.81 10^3/uL (1.2-6.7); Bands % 14; Platelet Count 95 10^3/uL (130-400)
[2020-05-22 07:24] LABS: Metamyelocytes % 2
[2020-05-22 07:25] LABS: Polychromasia Present
[2020-05-22 07:58] LABS: Diff Comment Manual Differential
[2020-05-22] MEDS: Atorvastatin 10 MG TAB PO (09:27)
[2020-05-22] MEDS: Allopurinol 100 MG TAB 200 MG PO (09:27)
[2020-05-22] MEDS: levETIRAcetam 500 MG TAB PO ×2 (09:28→20:15)
[2020-05-22] MEDS: Pantoprazole 40 MG TABCR PO (09:28)
[2020-05-22] MEDS: Apixaban 5 MG TAB PO ×2 (09:28→20:15)
[2020-05-22] MEDS: Tamsulosin 0.4 MG CAPCR PO (09:28)
[2020-05-22] MEDS: Multivitamin TAB 2 TAB PO (09:28)
[2020-05-22] MEDS: Magnesium Oxide 400 MG TAB PO ×2 (09:28→20:15)
[2020-05-22] MEDS: Thiamine 100 MG TAB PO (09:29)
[2020-05-22] MEDS: Hydrocortisone SOD SUC. 100 MG VIAL 50 MG IVP ×2 (09:29→16:31)
[2020-05-22] MEDS: Normal Saline Flush 10 ML SYR IVP (09:31)
[2020-05-22] MEDS: Normal Saline 1,000 ML 75 ML IV (09:51)
--- NOTE | 2020-05-22 10:34 | PDOC.CMIN ---
- If Service Date Differs Date of service: 05/22/20 Time of Service: 10:34 Care Management Initial Assess REASON FOR HOSPITALIZATION:: Cellulitus PAST MEDICAL HISTORY/PAST SURGICAL HISTORY:: 70 male with recent dx glioblastoma, s/p right frontal lobectomy, has been undergoing chemo/XRT. Macular degeneration, allergic rhinitis, BPH with urinary obs/LUTS, cataracts, cervical disc prolapse with radiculopathy, diverticulosis of colon, essential hypertension, GERD, gout, hematuria, hx of DVT, hx of tobacco use, hyperlipidemia, neoplasm of bone, soft tissue and skin, obesity, shoulder pain, squamous cell carcinoma of skin, squamous cell carcinoma of neck, appendectomy, right hammertoe correction, nasal surgery, vasectomy. PREVIOUS FUNCTIONAL STATUS/SOCIAL/FAMILY SUPPORTS:: Chad lives in [place], [place] with his spouse. CURRENT FUNCTIONAL STATUS:: Chad is receiving care in the ICU he is currently being ruled out for COVID due to recent fever, he also has a cellulitus and positive blood cultures. Chad's daughter per nursing is supportive and been at the bedside. She is not here at this time, CM will review plan with patient and his family once COVID has been ruled out. CM reviewed treatment plan and morning rounds and with primary nurse. ADVANCE DIRECTIVES:: On file, Tomasa as agent, Clare and Carmelita as alternates. Has patient been provided with info about the portal/API?: No Did the patient sign up for the portal?: No (enrolled) CODE STATUS:: Full Code INSURANCE COVERAGE / FINANCIAL ISSUES:: Medicare. [employer] CURRENT HOME/COMMUNITY SERVICES/EQUIPMENT:: Optune device treatment of Glioblastoma, VNA: RN, PT, OT. FWW, glucometer PRIMARY CARE PHYSICIAN:: Dr. Orellana. POTENTIAL DISCHARGE NEEDS:: Follow up with primary care scheduled prior to discharge. Disposition to be determined r/t postive blood cultures and length of treatment needed via IV abx including frequency. PATIENT/FAMILY EDUCATION NEEDS:: Discharge education, limitations and follow up plan of care including ask me three and self management. Family should be present for the education and follow up. ANTICIPATED BARRIERS TO DISCHARGE:: Pending IV abx length of treatment and frequency TRANSPORTATION:: Via family private car at time of discharge PLAN:: Chad is currently on IV abx, he has a cardiology consult and echo scheduled. CM will meet with Chad and his family once he is off PUI (COVID) precautions. Disposition to be determined.
[2020-05-22] MEDS: Insulin Aspart 300 UNITS/3 ML PEN SC ×2 (12:03→16:54)
[2020-05-22] MEDS: Acetaminophen 325 MG TAB 650 MG PO (12:13)
--- NOTE | 2020-05-22 12:15 | PHA.REVIEW ---
Pharmacy Admission Review - Admission Clinical Review (Last Reviewed 05/21/20 @ 14:52 by Karsten Mckay MD) Sepsis (Acute) Cellulitis of foot, right (Acute) History of DVT (deep vein thrombosis) (Acute) Glioblastoma (Acute) Edema (Acute) Gout (Acute) Hyperlipidemia (Acute) No Known Allergies Allergy (Verified 05/21/20 11:21) Height 6 ft 1 in Weight 89.811 kg - Renal Dosing Renal Dosing: BUN 25 mg/dL (7-18) H 05/22/20 06:15 Creatinine 1.50 mg/dL (0.70-1.30) H 05/22/20 06:15 Medications needing adjustments: Reviewed List of meds needing interventions: MEDS OK - Anticoagulation Anticoagulation: Hgb 9.8 g/dL (13.5-17.5) L 05/22/20 06:15 Hct 29.4 % (40.0-50.0) L 05/22/20 06:15 Plt Count 95 10^3/uL (130-400) L 05/22/20 06:15 Creatinine 1.50 mg/dL (0.70-1.30) H 05/22/20 06:15 Therapeutic Anticoagulation: Reviewed Medications: Apixaban - Relevant Labs Sodium 141 mmol/L (136-145) 05/22/20 06:15 Potassium 3.8 mmol/L (3.5-5.1) 05/22/20 06:15 Chloride 111 mmol/L (98-107) H 05/22/20 06:15 Magnesium 1.4 mg/dL (1.8-2.4) L 05/22/20 06:15 Electrolytes, C-Reactive P, ESR: Reviewed (Magnesium 1.4 this AM (1.1 on admission) -- received 2gm IV in ED and 400mg PO BID ordered) - DM Control DM Control: Glucose 127 mg/dL (74-106) H 05/22/20 06:15 Finger Stick Blood Glucose 144 Finger Stick Blood Glucose 144 Finger Stick Blood Glucose 132 Finger Stick Blood Glucose 132 Insulin Dosing: Reviewed (SS aspart ordered (only metformin at home)) - Heart Failure/DC Heart Failure/DC: NT-Pro-B Natriuret Pep Cancelled 05/21/20 10:26 EF%, ELLA's, B-Blockers, Diuretics: N/A (applicable home meds have recently been dc'd) - BP Control BP Control: Blood Pressure [Left Arm] 104/67 Blood Pressure 93/78 Blood Pressure 97/70 Blood Pressure 108/68 Blood Pressure 93/61 Blood Pressure 99/57 Blood Pressure 115/58 Blood Pressure 104/67 Blood Pressure 120/60 Blood Pressure 109/70 Blood Pressure 102/63 If elevated: N/A List meds needing interventions: appears all home BP meds have been dc'd recently - Qtc Review If Elevated: N/A - IV to PO Switch IV Medications: Reviewed - Home Meds Home Med List reviewed: Intervened Relevent Home Meds Not ordered & why?: dexamethasone changed to IV hydrocortisone acutely, novolog ordered per SS in place of metformin acutely, all others ordered; note: furosemide, amlodipine and HCTZ not on home med list as were recently dc'd (hospitalized 05/12 for [facility]) - Current meds Current Medication Order Review: Reviewed
[2020-05-22 14:35] LABS: COVID-19 RT-PCR UVMMC Result Negative (Negative)
--- NOTE | 2020-05-22 15:06 | W.PM.PROGNOT ---
Date of Service Date of service: 05/22/20 Time of Service: 15:06 Assessment and Plan Assessment and plan (1) Gram-negative bacteremia: Status: Acute Assessment and plan: Cont Zosyn while waiting for final speciation and sensitivities. Plan 2 weeks of IV antibiotics given he is immunocompromised. Sepsis; clinically improving, but still with mild tachycardia and bandemia. Cont IV fluids to support BP. Has been afebrile (2) Cellulitis of foot, right: Status: Acute Assessment and plan: Cont Zosyn / see gram-neg bacteremia (3) History of DVT (deep vein thrombosis): Status: Acute Assessment and plan: On Apixiban (4) Glioblastoma: Status: Acute Assessment and plan: Cont Optune treatments. Has chemotherapy regimen but is at an off period. On steroid for intracranial edema d/t the tumor. Stress dosing steroid with hydrocortisone. Planning to wean stress dosing down starting tomorrow. Subjective Subjective Patient reports: no new complaints, feels better, tolerating a regular diet (appetite is poor) and afebrile; denies nausea, vomiting and shortness of breath Exam Const General: cooperative, no acute distress and frail appearing Nutritional Appearance: average body habitus Orientation: alert Resp Effort & Inspection: normal respiratory effort Auscultation: clear to auscultation bilaterally Cardio Jugular venous pressure: no JVD Rate: regular rate Rhythm: regular rhythm Heart Sounds: S1 normal and S2 normal GI Palpation: soft and nontender Auscultation: normal bowel sounds Skin Full body images: 1. Dorsum of foot with ecchymoses and erythema. + edema. NT Extrem General: pedal edema bilaterally pitting and 1+ Objective Last Vital Signs Temp 36.8 C 05/22/20 12:06 Pulse 105 H 05/22/20 13:01 Resp 19 05/22/20 13:01 BP 92/62 L 05/22/20 13:01 Pulse Ox 96 05/22/20 13:01 Laboratory Results - last 24 hr 05/21/20 05/21/20 05/21/20 10:34 13:08 15:35 WBC RBC Hgb Hct MCV MCH MCHC RDW Plt Count MPV Immature Gran % Neutrophils % Band Neutrophils % Lymphocytes % Monocytes % Eosinophils % Basophils % Metamyelocytes % Nucleated RBC % Absolute Neutrophils Absolute Lymphocytes Absolute Monocytes Absolute Eosinophils Absolute Basophils RBC Morphology Polychromasia VBG Lactate 2.4 H* Sodium Potassium Chloride Carbon Dioxide Anion Gap BUN Creatinine Estimated GFR/1.73 m2 Glucose Calcium Magnesium Total Bilirubin AST ALT Alkaline Phosphatase Total Protein Albumin Urine Color Cancelled Urine Clarity Cancelled Urine pH Cancelled Ur Specific [place] Cancelled Urine Protein Cancelled Urine Ketones Cancelled Urine Blood Cancelled Urine Nitrite Cancelled Urine Bilirubin Cancelled Urine Urobilinogen Cancelled Ur Leukocyte Esterase Cancelled Urine Glucose Cancelled COVID-19 PCR Negative Nasopharyn COVID-19 PCR Not Applicable Ref Test Perform Site [place] [facility] lab 05/22/20 05/22/20 05/22/20 06:15 06:15 11:12 WBC 12.15 H RBC 3.17 L Hgb 9.8 L Hct 29.4 L MCV 92.7 MCH 30.9 MCHC 33.3 RDW 13.5 Plt Count 95 L MPV 11.7 H Immature Gran % See Differential Neutrophils % 75.0 Band Neutrophils % 14 Lymphocytes % 5.0 Monocytes % 4.0 Eosinophils % 0.0 Basophils % 0.0 Metamyelocytes % 2 Nucleated RBC % 0 Absolute Neutrophils 10.81 H Absolute Lymphocytes 0.61 L Absolute Monocytes 0.49 Absolute Eosinophils 0.00 Absolute Basophils 0.00 RBC Morphology See below Polychromasia Present VBG Lactate 1.0 Sodium 141 Potassium 3.8 Chloride 111 H Carbon Dioxide 21.9 Anion Gap 8.1 BUN 25 H Creatinine 1.50 H Estimated GFR/1.73 m2 46.40 Glucose 127 H Calcium 8.1 L Magnesium 1.4 L Total Bilirubin 0.6 AST 25 ALT 30 Alkaline Phosphatase 48 Total Protein 4.8 L Albumin 2.2 L Urine Color Urine Clarity Urine pH Ur Specific [place] Urine Protein Urine Ketones Urine Blood Urine Nitrite Urine Bilirubin Urine Urobilinogen Ur Leukocyte Esterase Urine Glucose COVID-19 PCR Nasopharyn COVID-19 PCR Ref Test Perform Site
[2020-05-22 17:24] LABS: Bilirubin Negative (Negative); Blood Small (Negative); Clarity Sl Cloudy (Clear); Glucose 100 mg/dL (Negative); Ketones Negative (Negative); Leukocyte Esterase Negative (Negative); Nitrite Negative (Negative); Specific Gravity 1.015 (1.005-1.025); Urobilinogen 0.2 EU/dL (Up TO 0.2); pH 5.5 (5-8)
[2020-05-22 17:38] LABS: Bacteria Negative HPF (Negative); Epithelial Cells Many HPF (Negative); WBC 0-2 HPF (0-5)
[2020-05-22 17:39] LABS: C & S Indicated? No; Crystals Many Amorphous HPF (Negative); Mucus Negative (Negative)
[2020-05-22] MEDS: MAGNESIUM SULFATE 2 GM/50 ML BAG IVPB (18:48)
--- NOTE | 2020-05-22 20:35 | W.PALLCONSUL ---
Date of service: 05/22/20 Time of Service: 18:35 History of Present Illness Narrative: I am meeting with Chad and his daughter Clare in the ICU at [facility]. Chad had planned to have a palliative consult with me prior to his recent hospitalization. Chad has glioblastoma, status post surgery, and now is on up to the machine. He has lost some short-term memory and looks to his daughter to answer many of his questions. He was admitted recently because of cellulitis of his foot. He is presently receiving antibiotics and will be on IV antibiotics for 2 weeks. I was asked by Dr. Mckay to address goals of care and CODE STATUS Consults Consult date: 05/22/20 Requesting physician: Karsten Mckay Assessment and Plan Assessment and plan (1) Cellulitis of foot, right: Status: Acute (2) Glioblastoma: Status: Acute (3) Palliative care patient: Status: Acute Assessment and plan: This was my first time meeting Chad as a palliative patient. I have been his 's doctor for many many years and we have had many interactions. His short-term memory definitely problematic. We mostly just talked about what palliative care is and how we can help him to be more comfortable and uses time for however long that is. He was not able to give me any meaningful details about his present disease. He does not have prognostic awareness, but his daughter Clare does. He is hoping that he lives about another 20 years. He also emphasizes that what he wants his longevity Today we did the DPOAE form. He designated his daughter Clare as the primary person who make decisions for him if he could not. If she is not available then his Tomasa would. His other daughter Rani could also weigh in. I will follow-up with Chad outpatient after he recovers from the cellulitis. I think it is going to be hard to talk to him alone because of his short-term memory lapses. It will be very important to tap into his [facility] benefits to gain the most services possible for Chad. This is already in the works I have spent more than 50% of time in counseling with this patient. Review of Systems Narrative: Chad states there he gets confused easily. 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) Cataract Cervical disc prolapse with radiculopathy diskectomy/fusion 2000 Diverticulosis of colon without diverticulitis Elevated PSA (03/01/16) Essential hypertension (09/30/13) Weight and alcohol dependent Family hx of prostate cancer Gastroesophageal reflux disease HH; [facility] Glioblastoma Gout Hematuria, unspecified History of DVT (deep vein thrombosis) History of tobacco use Hyperlipidemia Neoplasm of unspecified nature of bone, soft tissue, and skin (08/07/15) Obesity Shoulder pain right; full thickness tear 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 THORPE; RIGHT SIDE OF NECK; LEFT SIDE OF FOREHEAD Surgical History Appendectomy Correction, Hammertoe RIGHT nasal surgery left nasal polypoid lesion removed Vasectomy Family History Mother Stroke Father Heart disease Sister No problems noted. Sister No problems noted. Sister No problems noted. Sister No problems noted. Daughter No problems noted. Daughter No problems noted. Maternal Grandfather Edema Heart disease Paternal Grandfather , ACCIDENTAL at age 49. No problems noted. Paternal Grandmother No problems noted. Maternal Grandmother Stroke Social History Smoking/Tobacco Use Status: Former Tobacco Use Quit Date: 09/26/87 Alcohol Intake: former Drug use: Never Substance use type: does not use Caregiver/Support person: No Household members: spouse Pets and animals: No Do you think of yourself as: straight/heterosexual Duration: 45-60 minutes/day Frequency: 1-2 times per week Vanita/Pentecostal: Spiritism Special vanita needs: No Do you feel safe at home: Yes Do you feel safe in your relationship?: Yes Exam Narrative Exam Narrative: Chad is sitting in bed, he smiles often, his left eyelid is somewhat closed relative to his right. His daughter Clare is lovingly shaving his head and applying the Optune machine. Chad looks to her to answer many questions. He does not speak gibberish but he does not always know the answer and seems to get off track at times He looks comfortable, speaks in complete sentences Results Last Vital Signs Temp 96.8 F L 05/22/20 19:30 Pulse 88 05/22/20 19:30 Resp 14 05/22/20 19:30 BP 104/76 05/22/20 19:30 Pulse Ox 98 05/22/20 19:30 Labs Result diagrams: 05/22/20 06:15 05/22/20 06:15 Labs: Laboratory Results - last 24 hr 05/21/20 05/21/20 05/22/20 10:34 13:08 06:15 WBC RBC Hgb Hct MCV MCH MCHC RDW Plt Count MPV Immature Gran % Neutrophils % Band Neutrophils % Lymphocytes % Monocytes % Eosinophils % Basophils % Metamyelocytes % Nucleated RBC % Absolute Neutrophils Absolute Lymphocytes Absolute Monocytes Absolute Eosinophils Absolute Basophils RBC Morphology Polychromasia VBG Lactate Sodium 141 Potassium 3.8 Chloride 111 H Carbon Dioxide 21.9 Anion Gap 8.1 BUN 25 H Creatinine 1.50 H Estimated GFR/1.73 m2 46.40 Glucose 127 H Calcium 8.1 L Magnesium 1.4 L Total Bilirubin 0.6 AST 25 ALT 30 Alkaline Phosphatase 48 Total Protein 4.8 L Albumin 2.2 L Urine Color Cancelled Urine Clarity Cancelled Urine pH Cancelled Ur Specific [place] Cancelled Urine Protein Cancelled Urine Ketones Cancelled Urine Blood Cancelled Urine Nitrite Cancelled Urine Bilirubin Cancelled Urine Urobilinogen Cancelled Ur Leukocyte Esterase Cancelled Urine RBC Urine WBC Ur Epithelial Cells Urine Crystals Urine Bacteria Urine Mucus Ur Culture Indicated? Urine Glucose Cancelled COVID-19 PCR Negative Nasopharyn COVID-19 PCR Not Applicable Ref Test Perform Site [place] [facility] lab 05/22/20 05/22/20 05/22/20 06:15 11:12 16:30 WBC 12.15 H RBC 3.17 L Hgb 9.8 L Hct 29.4 L MCV 92.7 MCH 30.9 MCHC 33.3 RDW 13.5 Plt Count 95 L MPV 11.7 H Immature Gran % See Differential Neutrophils % 75.0 Band Neutrophils % 14 Lymphocytes % 5.0 Monocytes % 4.0 Eosinophils % 0.0 Basophils % 0.0 Metamyelocytes % 2 Nucleated RBC % 0 Absolute Neutrophils 10.81 H Absolute Lymphocytes 0.61 L Absolute Monocytes 0.49 Absolute Eosinophils 0.00 Absolute Basophils 0.00 RBC Morphology See below Polychromasia Present VBG Lactate 1.0 Sodium Potassium Chloride Carbon Dioxide Anion Gap BUN Creatinine Estimated GFR/1.73 m2 Glucose Calcium Magnesium Total Bilirubin AST ALT Alkaline Phosphatase Total Protein Albumin Urine Color Yellow Urine Clarity Sl cloudy Urine pH 5.5 Ur Specific [place] 1.015 Urine Protein Negative Urine Ketones Negative Urine Blood Small H Urine Nitrite Negative Urine Bilirubin Negative Urine Urobilinogen 0.2 Ur Leukocyte Esterase Negative Urine RBC 5-10 H Urine WBC 0-2 Ur Epithelial Cells Many Urine Crystals Many amorphous Urine Bacteria Negative Urine Mucus Negative Ur Culture Indicated? No Urine Glucose 100 COVID-19 PCR Nasopharyn COVID-19 PCR Ref Test Perform Site
[2020-05-22] MEDS: Normal Saline 1,000 ML 125 ML IV (21:41)
[2020-05-22] MEDS: Senna TAB 2 TAB PO (22:29)
[2020-05-22] MEDS: Melatonin 3 MG TAB PO (22:30)
[2020-05-23] VITALS (67 sets, daily range): BP systolic 101–126; BP diastolic 50–87; PULSE 52–97; RESP 13–33; TEMP 36.5–37.6; O2SAT 95–100
[2020-05-23] MEDS: PIPERACILLIN/TAZO 3.375 GM in Normal Saline 50 ML IVPB ×4 (00:19→19:17)
[2020-05-23 06:49] LABS: Abs Immature Grans 0.32 10^3/uL (0.0-0.06); HCT 28.1 % (40.0-50.0); HGB 9.4 g/dL (13.5-17.5); MCH 31.2 pg (27.0-33.0); MCHC 33.5 % (32.0-36.0); MCV 93.4 fL (80-95); MPV 11.3 fL (8.0-11.0); Nucleated RBC 0 %; RBC 3.01 10^6/uL (4.36-5.78); RDW 13.7 % (11.8-14.1); RDW-SD 46.4 fL; WBC 10.93 10^3/uL (4.4-10.8)
[2020-05-23 07:08] LABS: ALT 24 U/L (16-63); AST 13 U/L (15-37); Albumin 1.8 g/dL (3.4-5.0); Alkaline Phosphatase 55 U/L (46-116); Anion Gap 6.4 mmol/L (3-11); BUN 24 mg/dL (7-18); Bilirubin, Total 0.5 mg/dL (0.2-1.0); CO2 22.6 mmol/L (21.0-32.0); CREATININE 1.39 mg/dL (0.70-1.30); Calcium 7.7 mg/dL (8.5-10.1); Chloride 111 mmol/L (98-107); Estimated GFR 50.67 (mL/min/1.73m2); Glucose 150 mg/dL (74-106); Potassium 3.3 mmol/L (3.5-5.1); Sodium 140 mmol/L (136-145); Total Protein 4.8 g/dL (6.4-8.2)
[2020-05-23 07:21] LABS: Absolute Lymphocyte Count 0.77 10^3/uL (1.2-3.4); Absolute Monocyte Count 0.33 10^3/uL (0.1-0.8); Absolute Neutrophil Count 9.84 10^3/uL (1.2-6.7); Bands % 6
[2020-05-23 07:23] LABS: Diff Comment Manual Differential; Platelet Count 84 10^3/uL (130-400); RBC Morphology Normal
[2020-05-23] MEDS: Multivitamin TAB 2 TAB PO (08:20)
[2020-05-23] MEDS: Pantoprazole 40 MG TABCR PO (08:21)
[2020-05-23] MEDS: Hydrocortisone SOD SUC. 100 MG VIAL 50 MG IVP ×3 (08:21→16:10)
[2020-05-23] MEDS: levETIRAcetam 500 MG TAB PO ×2 (08:21→21:46)
[2020-05-23] MEDS: Apixaban 5 MG TAB PO ×2 (08:21→21:45)
[2020-05-23] MEDS: Tamsulosin 0.4 MG CAPCR PO (08:21)
[2020-05-23] MEDS: Magnesium Oxide 400 MG TAB PO ×2 (08:21→21:46)
[2020-05-23] MEDS: Thiamine 100 MG TAB PO (08:21)
[2020-05-23] MEDS: Atorvastatin 10 MG TAB PO (08:21)
[2020-05-23] MEDS: Allopurinol 100 MG TAB 200 MG PO (08:21)
[2020-05-23] MEDS: Normal Saline Flush 10 ML SYR IVP (08:21)
[2020-05-23] MEDS: Insulin Aspart 300 UNITS/3 ML PEN SC ×3 (08:22→17:02)
[2020-05-23] MEDS: Normal Saline 1,000 ML 125 ML IV ×2 (08:30→16:55)
[2020-05-23] MEDS: HYDROcodone 5/Acetaminophen 325 TAB PO (09:42)
--- NOTE | 2020-05-23 12:03 | PGE_ITS ---
Date of Service Date of service: 05/23/20 Time of Service: 12:03 Assessment and Plan Assessment and plan (1) Palliative care patient: Status: Acute Assessment and plan: Palliative consult appreciated. (2) Gram-negative bacteremia: Status: Acute Assessment and plan: Waiting for final culture findings. If he has been on appropriate antibiotic according to culture results, will repeat culture and then consider PICC for 2 weeks of IV antibiotics. (3) Cellulitis of foot, right: Status: Acute Assessment and plan: Clinically improving. Cont Zosyn Gram negative zackary growing in culture (4) History of DVT (deep vein thrombosis): Status: Acute Assessment and plan: On Apixiban (5) Glioblastoma: Status: Acute Assessment and plan: His neuro-oncologist is aware of his admission. He is currently on an off period with his chemotherapy. Subjective Subjective Patient reports: feels better, still having pain (R lower leg from knee to toes), tolerating a regular diet and afebrile; denies nausea and vomiting Exam Const General: cooperative and no acute distress Nutritional Appearance: overweight Orientation: alert [facility] Head: other (Optune device in place.) Resp Effort & Inspection: normal respiratory effort Auscultation: clear to auscultation bilaterally Cardio Jugular venous pressure: no JVD Rate: regular rate Rhythm: regular rhythm Heart Sounds: S1 normal and S2 normal GI Palpation: soft and nontender Auscultation: normal bowel sounds Skin Full body images: 1. Dorsum of foot with ecchymoses and erythema. No drainage. Extrem General: no calf tenderness and edema Laterality: bilateral Objective Last Vital Signs Temp 36.8 C 05/23/20 08:30 Pulse 75 05/23/20 11:01 Resp 19 05/23/20 11:01 BP 115/68 05/23/20 11:01 Pulse Ox 97 05/23/20 11:01 Laboratory Results - last 24 hr 05/21/20 05/22/20 05/23/20 13:08 16:30 06:16 WBC RBC Hgb Hct MCV MCH MCHC RDW Plt Count MPV Immature Gran % Neutrophils % Band Neutrophils % Lymphocytes % Monocytes % Eosinophils % Basophils % Nucleated RBC % Absolute Neutrophils Absolute Lymphocytes Absolute Monocytes Absolute Eosinophils Absolute Basophils RBC Morphology Sodium 140 Potassium 3.3 L Chloride 111 H Carbon Dioxide 22.6 Anion Gap 6.4 BUN 24 H Creatinine 1.39 H Estimated GFR/1.73 m2 50.67 Glucose 150 H Calcium 7.7 L Magnesium 2.0 Total Bilirubin 0.5 AST 13 L ALT 24 Alkaline Phosphatase 55 Total Protein 4.8 L Albumin 1.8 L Urine Color Yellow Urine Clarity Sl cloudy Urine pH 5.5 Ur Specific [place] 1.015 Urine Protein Negative Urine Ketones Negative Urine Blood Small H Urine Nitrite Negative Urine Bilirubin Negative Urine Urobilinogen 0.2 Ur Leukocyte Esterase Negative Urine RBC 5-10 H Urine WBC 0-2 Ur Epithelial Cells Many Urine Crystals Many amorphous Urine Bacteria Negative Urine Mucus Negative Ur Culture Indicated? No Urine Glucose 100 COVID-19 PCR Negative Nasopharyn COVID-19 PCR Not Applicable Ref Test Perform Site [place] [facility] lab 05/23/20 06:16 WBC 10.93 H RBC 3.01 L Hgb 9.4 L Hct 28.1 L MCV 93.4 MCH 31.2 MCHC 33.5 RDW 13.7 Plt Count 84 L MPV 11.3 H Immature Gran % 0.0 Neutrophils % 84.0 Band Neutrophils % 6 Lymphocytes % 7.0 Monocytes % 3.0 Eosinophils % 0.0 Basophils % 0.0 Nucleated RBC % 0 Absolute Neutrophils 9.84 H Absolute Lymphocytes 0.77 L Absolute Monocytes 0.33 Absolute Eosinophils 0.00 Absolute Basophils 0.00 RBC Morphology Normal Sodium Potassium Chloride Carbon Dioxide Anion Gap BUN Creatinine Estimated GFR/1.73 m2 Glucose Calcium Magnesium Total Bilirubin AST ALT Alkaline Phosphatase Total Protein Albumin Urine Color Urine Clarity Urine pH Ur Specific [place] Urine Protein Urine Ketones Urine Blood Urine Nitrite Urine Bilirubin Urine Urobilinogen Ur Leukocyte Esterase Urine RBC Urine WBC Ur Epithelial Cells Urine Crystals Urine Bacteria Urine Mucus Ur Culture Indicated? Urine Glucose COVID-19 PCR Nasopharyn COVID-19 PCR Ref Test Perform Site
[2020-05-23] MEDS: Potassium Chloride 20 MEQ TABCR PO (12:19)
--- NOTE | 2020-05-23 12:33 | W.NUTRFU ---
Date of service: 05/23/20 Time of Service: 12:33 Nutritional Follow up NOTE: 70 year old male admitted with cellulitis. Hx of glioblastoma, currently on chemo pills and steriods. Elevated glucose noted, hypoalbuminemia. Medical chart indicates non significant weight loss in last year (-15 lbs). Meds include MVI, thiamine, insulin. Dm consult pending. Following diabetic diet with varied intake. will continue to follow. Time Spent in Nutritional Counseling and Treatment: 0 time spent face to face
[2020-05-23] MEDS: Senna TAB 2 TAB PO (21:45)
[2020-05-23] MEDS: Melatonin 3 MG TAB PO (21:45)
[2020-05-24] MEDS: PIPERACILLIN/TAZO 3.375 GM in Normal Saline 50 ML IVPB ×2 (00:18→05:50)
[2020-05-24] MEDS: Hydrocortisone SOD SUC. 100 MG VIAL 50 MG IVP (00:18)
[2020-05-24 03:10] VITALS: BP 147/88; PULSE 62; RESP 17; TEMP 37.3; O2SAT 97
[2020-05-24] MEDS: Normal Saline 1,000 ML 125 ML IV ×2 (04:51→15:44)
[2020-05-24] MEDS: HYDROcodone 5/Acetaminophen 325 TAB PO (05:16)
[2020-05-24 07:11] LABS: Abs Immature Grans 0.05 10^3/uL (0.0-0.06); Absolute Lymphocyte Count 0.53 10^3/uL (1.2-3.4); HCT 28.7 % (40.0-50.0); HGB 9.6 g/dL (13.5-17.5); MCH 31.1 pg (27.0-33.0); MCHC 33.4 % (32.0-36.0); MCV 92.9 fL (80-95); MPV 11.7 fL (8.0-11.0); Nucleated RBC 0 %; RBC 3.09 10^6/uL (4.36-5.78); RDW 13.8 % (11.8-14.1); RDW-SD 46.5 fL; WBC 10.66 10^3/uL (4.4-10.8)
[2020-05-24 07:19] LABS: Anion Gap 8.5 mmol/L (3-11); BUN 25 mg/dL (7-18); CO2 22.5 mmol/L (21.0-32.0); CREATININE 1.24 mg/dL (0.70-1.30); Calcium 7.8 mg/dL (8.5-10.1); Chloride 114 mmol/L (98-107); Glucose 176 mg/dL (74-106); Potassium 3.5 mmol/L (3.5-5.1); Sodium 145 mmol/L (136-145)
[2020-05-24 07:33] VITALS: BP 119/80; PULSE 58; RESP 16; TEMP 36.7; O2SAT 98
[2020-05-24 07:44] LABS: Platelet Count 80 10^3/uL (130-400)
[2020-05-24 07:47] LABS: Absolute Basophil Count 0.21 10^3/uL (0.0-0.2); Absolute Eosinophil Count 0.11 10^3/uL (0.0-0.7); Absolute Monocyte Count 0.21 10^3/uL (0.1-0.8); Absolute Neutrophil Count 9.59 10^3/uL (1.2-6.7); Bands % 2
[2020-05-24 07:48] LABS: Diff Comment Manual Differential
[2020-05-24 07:53] LABS: Polychromasia Present
[2020-05-24] MEDS: Tamsulosin 0.4 MG CAPCR PO (08:00)
[2020-05-24] MEDS: Magnesium Oxide 400 MG TAB PO ×2 (08:00→20:28)
[2020-05-24] MEDS: Allopurinol 100 MG TAB 200 MG PO (08:01)
[2020-05-24] MEDS: Multivitamin TAB 2 TAB PO (08:01)
[2020-05-24] MEDS: Pantoprazole 40 MG TABCR PO (08:01)
[2020-05-24] MEDS: Atorvastatin 10 MG TAB PO (08:01)
[2020-05-24] MEDS: Thiamine 100 MG TAB PO (08:02)
[2020-05-24] MEDS: levETIRAcetam 500 MG TAB PO ×2 (08:02→20:28)
[2020-05-24] MEDS: Apixaban 5 MG TAB PO ×2 (08:02→20:28)
[2020-05-24] MEDS: Normal Saline Flush 10 ML SYR IVP (08:08)
[2020-05-24] MEDS: Insulin Aspart 300 UNITS/3 ML PEN SC ×3 (08:18→17:28)
[2020-05-24] MEDS: Dexamethasone 1 MG TAB 3 MG PO (09:31)
[2020-05-24 09:32] LABS: Vancomycin, Trough 15.1 ug/mL (10.0-20.0)
[2020-05-24] MEDS: CIPROFLOXACIN 400 MG/200 ML BAG 200 MG IVPB ×2 (10:35→22:39)
[2020-05-24 12:00] VITALS: BP 136/88; PULSE 60; RESP 16; TEMP 37.4; O2SAT 98
--- NOTE | 2020-05-24 12:05 | W.PM.PROGNOT ---
Date of Service Date of service: 05/24/20 Time of Service: 12:06 Assessment and Plan Assessment and plan (1) Gram-negative bacteremia: Status: Acute Assessment and plan: Blood culture growing Pseudomonas aeruginosa Has had adequate coverage with Zosyn. Change to IV cipro 400mg BID for decreased number of daily infusions required. Planning 2 weeks total of IV antibiotics. Planning to admit to swing bed status tomorrow. (2) Cellulitis of foot, right: Status: Acute Assessment and plan: Improving. WBC count normalized. Changed IV antibiotics to cipro 400mg IV BID. (3) History of DVT (deep vein thrombosis): Status: Acute Assessment and plan: Cont apixiban (4) Glioblastoma: Status: Acute Assessment and plan: Next Friday he goes back on [employer]; daughter will bring it in. Has telehealth visit with neuro-onc tomorrow at 8:15AM Hgb stable in the 9's Platelets 120 > 80. Monitor Subjective Subjective Patient reports: no new complaints, feels better, tolerating a regular diet and afebrile; denies nausea, vomiting and shortness of breath Interval history since last seen: hydrocodone has helped relieve his R leg pain. Exam Const General: cooperative and no acute distress Nutritional Appearance: overweight Orientation: alert Resp Effort & Inspection: normal respiratory effort Auscultation: clear to auscultation bilaterally Cardio Rate: regular rate Rhythm: regular rhythm Heart Sounds: S1 normal and S2 normal Skin Full body images: 1. ecchymoses, blister with serous drainage at dorsum of foot. Erythema of dorsum of foot more violaceous now. Extrem General: no calf tenderness and edema Laterality: bilateral (2+) Objective Last Vital Signs Temp 36.7 C 05/24/20 07:33 Pulse 58 L 05/24/20 07:33 Resp 16 05/24/20 07:33 BP 119/80 05/24/20 07:33 Pulse Ox 98 05/24/20 07:33 Laboratory Results - last 24 hr 05/24/20 05/24/20 05/24/20 06:37 06:37 09:08 WBC 10.66 RBC 3.09 L Hgb 9.6 L Hct 28.7 L MCV 92.9 MCH 31.1 MCHC 33.4 RDW 13.8 Plt Count 80 L MPV 11.7 H Immature Gran % 0.0 Neutrophils % 88.0 Band Neutrophils % 2 Lymphocytes % 5.0 Monocytes % 2.0 Eosinophils % 1.0 Basophils % 2.0 Nucleated RBC % 0 Absolute Neutrophils 9.59 H Absolute Lymphocytes 0.53 L Absolute Monocytes 0.21 Absolute Eosinophils 0.11 Absolute Basophils 0.21 H RBC Morphology See below Polychromasia Present Sodium 145 Potassium 3.5 Chloride 114 H Carbon Dioxide 22.5 Anion Gap 8.5 BUN 25 H Creatinine 1.24 Estimated GFR/1.73 m2 57.80 Glucose 176 H Calcium 7.8 L Vancomycin Trough 15.1
--- NOTE | 2020-05-24 12:58 | IN_ITS ---
Date of service: 05/24/20 Time of Service: 10:55 PT Notes Visit Reasons: CELLULITUS Inpatient Physical Therapy Evaluation Date: 05/24/2020 Referring Doctor: Karsten Mckay MD PT Orders: PT CONSULT: Non-urgent Precautions: Fall risk, standard Patient Profile/Admitting Diagnosis: 70 yo male with a recent h/o glioblastoma dxd this summer, s/p prtial frontal lobectomy on oral chemotherapy, acute kidney injury hospitalized on 05/12/2020 - 05/14/2020 at [facility], BPH, Essential hypertension, GERD, Gout, HLD, squamous cell CA of neck, previous tobacco abuse. He was brought to ED via EMS due to higher fever, eventually confirmed to be related to cellulitis of R foot. PMHX: Medical History Actinic keratitis (06/07/14) LEFT UATSDIN/FOREHEAD Age-related macular degeneration Allergic rhinitis BPH w urinary obs/LUTS (03/01/16) Cataract Cervical disc prolapse with radiculopathy diskectomy/fusion 2000 Diverticulosis of colon without diverticulitis Elevated PSA (03/01/16) Essential hypertension (09/30/13) Weight and alcohol dependent Family hx of prostate cancer Gastroesophageal reflux disease HH; [facility] Glioblastoma Gout Hematuria, unspecified History of DVT (deep vein thrombosis) History of tobacco use Hyperlipidemia Neoplasm of unspecified nature of bone, soft tissue, and skin (08/07/15) Obesity Shoulder pain right; full thickness tear 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 THORPE; RIGHT SIDE OF NECK; LEFT SIDE OF FOREHEAD Surgical History Appendectomy Correction, Hammertoe RIGHT nasal surgery left nasal polypoid lesion removed Vasectomy Social History/Home Situation: Patient reports to me that he lives in a private home alone though [place]. Is a split-level home, with stairs and a rail. He lives with his . His daughter later presents to the room, who is his main care provider. I neglect to confirm his report to me, with her. He was using a walker prior to admission since January, when he began falling at high frequency, which was later discovered to be related to his glioblastoma. Current Functional Limitations: Assist with bed mobility and contact-guard with transfers. Partial weightbearing right foot with RW. Equipment Owned/DME: Walker Subjective: Pain in the right foot. Reports to me that he has been up a few times with nursing to utilize the commode into the chair. Has been utilizing a walker for a few months due to falls. Objective: General Observation: Optune device in place, IV left cubital fossa, Cummins, drainage from dorsum of right foot from bruise, cellulitis right foot. Mental Status: Alert to year and month, uncertain of the day of the week. He is able to reiterate his birthday to me, and place. Pain: 10, right foot Vital Signs: 119/80 BP, HR 58, 98% room air. ROM: Right Upper Extremity: 160 degrees right flexion and abduction, otherwise WFL. Left Upper Extremity: 160 degrees left flexion and abduction, otherwise WFL Right Lower Extremity: WFL grossly Left Lower Extremity: WFL grossly Strength: Right Upper Extremity: Grossly 4+/5 throughout Left Upper Extremity: Grossly 4+/5 throughout Right Lower Extremity: Hip flexion 5/5, defer assessment otherwise as it induces pain. Left Lower Extremity: Grossly 5/5 throughout. Sensation: Intact throughout extremities, defer palpation from right knee and below due to discomfort Bed Mobility/Transfers: Supervision with supine at 45 degrees HOB to EOB Min assist x1 with seated at EOB, to supine Contact-guard sit to stand, stand to sit at walker Contact-guard bed to chair transfer, and vice versa Patient requiring verbal cues throughout for proper hand placement with sit to stand and use of walker Gait: Requires rolling walker, only achieves 5 steps a day with partial weightbearing right lower extremity due to cellulitis and drainage. With right foot down he continued to have notable clear drainage throughout, which is unsaf e for ambulation. Balance: Static Sitting: Good Dynamic Sitting: Fair Static Standing: Poor Dynamic Standing: Poor Fails all stages of stage IV balance test Special Tests: Mobility Limitations Standardized Measure [facility]-PAC 6 clicks Basic Mobility Inpatient Short Form: 57% disability Informed Consent/Education: Patient instructed in purpose of PT consult and plan of care. Assessment: Patient is a 70 year old male referred to physical therapy services with the diagnosis of right foot cellulitis in the presence of recent frontal lobe resection secondary to glioblastoma on oral chemotherapy, s/P acute kidney injury hospitalized on 05/12/2020 - 05/14/2020 at [facility]. Patient presents with clinical signs and symptoms consistent with fall risk, global weakness, impaired functional ability and ambulation tolerance due to referred diagnosis. Impairment level findings: Right lower extremity weakness Poor balance Poor movement pattern and motor control Impairments are contributing to the following functional limitations: [facility] sc ore of 50% disability, and assistance with all functional transfers, ambulation, and bed mobility, much impaired from his premorbid level of function. He is a fall risk. He requires lipid intervention to attend the above impairments and functional deficits, to attempt achievement of discharge home with care of family. Patient is assessed as a Moderate 35522 complexity based on the following: History: See comorbidities/PMH Examination: See above impairments and functional rotations Presentation: Evolving Decision Making: Moderate Goals: Goals X1 week 1. Supine-Sit independent 2. Sit-Supine independent 3. Sit-Stand independent 4. Stand-Sit independent 5. Bed-Chair independent 6. Chair-Bed independent 7. Gait 300 feet with walker, close supervision 8. Stairs 10, close supervision, with rail 9. Independent with home exercise program 10. Balance fair with dynamic activities, passes stage I and II of stage IV balance test Plan of Care/Treatment Plan: 1-2x/day, 7 days/week x 1 week. Plan of care has been reviewed with the GAME ATTENDANT providing the service under Physical Therapy direction. Initiate Physical Therapy intervention for strengthening, bed mobility, transfers, gait, stairs, balance training, use of assistive device. DISCHARGE RECOMMENDATIONS: Home with family, once above rehab goals have been achieved TREATMENT CODE/TIME: 15966, 30 minutes direct and total
--- NOTE | 2020-05-24 14:08 | PT.INTREAT ---
Date of service: 05/24/20 Time of Service: 14:08 PT Notes Visit Reasons: CELLULITUS Inpatient Physical Therapy Treatment Note [facility] Date: 05/24/2020 PRECAUTIONS: Fall, WBAT R SUBJECTIVE: Chad is agreeable to participating in PT. He reports that he continues to have R foot pain with movement and ambulation. OBJECTIVE: PAIN: Patient complained of R dorsal foot pain with movement and gait training BED MOBILITY/TRANSFERS Supine-sit: S with HOB at 50 degrees Sit-stand: SBA Stand-sit: SBA GAIT Assistive Device: FWW Weight bearing: Full Assist: SBA Distance: 40' Deviation: Increased R dorsal foot pain THEREX: Patient was instructed in several LE strengthening and stabilization exercises, in a supine position, as per flow sheet. He reports increased R dorsal foot pain with ankle pump exercise. ASSESSMENT: Patient tolerated session with complaint of R dorsal foot pain with movement and gait training. He was able to tolerate a progression in gait distance with FWW support and SBA. He demonstrates the ability to bear weight, as tolerated, through R foot with FWW support. PLAN: Continue with gait and transfer training for continued progression towards baseline level of function. TREATMENT CODE/TIME: 30 minutes; 89851 x2
--- NOTE | 2020-05-24 15:04 | CHAPLAIN ---
I visited Chad today in on Med/Surg. He was in the ICU when I first met him. His daughter Clare is with him. She is an [employer] employee. Chad is pleasant, doesn't get involved in a long conversation. Clare explained that he'll be here for a couple of weeks for IV antibiotics. She asked about her mother being able to visit as well. Clare has been designated as the one visitor for Chad, but now that we know he's going to be here for a couple of weeks, Clare is wonder is her mom could visit as well. I suggested she check with Care Management about that. Yesterday Clare asked if I would get in touch with Rev. Shree Dumas, the ear nose [facility] [place] to see if he would visit her mom at home, while her dad is here. Rev. Rojas said he would.
--- NOTE | 2020-05-24 15:22 | CMPROGNOTE_ITS ---
- If Service Date Differs Date of service: 05/24/20 Time of Service: 15:22 Care Management Progress Note S/O:Chad is alert today, his daughter is present and at the bedside when CM into visit. Chad has his televisit in the morning with his oncologist, his daughter reports he has an infusion set up at [facility] on Friday. CM reviewed current acuity and bacteremia Chad and suggested that due to bacteremia the oncologist may want to hold the infusion. Daughter will clarify with oncologist during morning appointment that treatment will be held while in the hospital. Anticipate Chad will be here for a total of two weeks for IV abx. Anticipate if stable he will transition to SB1 on . His daughter has requested that his spouse be allowed to visit, CM reviewed with infection prevention and at this time there is only one person allowed to visit and it is the identified support person. Abisai lopez is in agreement with this and CM offered video conference with his spouse and also zoom visits for continued contact. Chad has recently been established with the [place] in [place], [place]. CM left a voicemail for Daria Mcgee RN CM to follow up and connect the family with her to assist with [facility]. A:Chad is a 70 year old male admitted with cellulitus with bacteremia. He is currently undergoing treatment for Glioblastoma and had surgery back in January of this year. His daughter Clare is his support person and has been with him throughout his stay. P: Chad will be discharged home when medically ready and after a short swing bed stay to complete course of abx. Upon discharge he will resume home health services for nursing, PT and OT. He will continue with his services through oncology he may need all of his [facility] prior to [facility] for coverage. CM will continue to support patient and family during his stay. Chad will transport home via private car at time of discharge.
[2020-05-24 15:40] VITALS: BP 146/97; PULSE 66; RESP 18; TEMP 36.9; O2SAT 99
[2020-05-24 19:33] VITALS: BP 160/94; PULSE 72; RESP 19; TEMP 36.7; O2SAT 100
[2020-05-24] MEDS: Melatonin 3 MG TAB PO (20:28)
[2020-05-24] MEDS: Senna TAB 2 TAB PO (20:28)
[2020-05-24 23:15] VITALS: BP 148/92; PULSE 50; RESP 17; TEMP 36.7; O2SAT 98
[2020-05-25] MEDS: Normal Saline 1,000 ML 125 ML IV ×2 (00:20→07:52)
[2020-05-25 03:10] VITALS: BP 154/83; PULSE 50; RESP 17; TEMP 36.5; O2SAT 98
[2020-05-25] MEDS: Tamsulosin 0.4 MG CAPCR PO (08:28)
[2020-05-25] MEDS: Magnesium Oxide 400 MG TAB PO (08:29)
[2020-05-25] MEDS: Dexamethasone 1 MG TAB 3 MG PO (08:29)
[2020-05-25] MEDS: Multivitamin TAB 2 TAB PO (08:29)
[2020-05-25] MEDS: Pantoprazole 40 MG TABCR PO (08:30)
[2020-05-25] MEDS: Atorvastatin 10 MG TAB PO (08:30)
[2020-05-25] MEDS: Allopurinol 100 MG TAB 200 MG PO (08:31)
[2020-05-25] MEDS: Apixaban 5 MG TAB PO (08:31)
[2020-05-25] MEDS: levETIRAcetam 500 MG TAB PO (08:31)
[2020-05-25] MEDS: Thiamine 100 MG TAB PO (08:31)
--- NOTE | 2020-05-25 08:49 | PDOC.CMPRO ---
Care Management Progress Note Chad will be discharged home when medically ready and after a short swing bed stay to complete course of abx. Upon discharge he will resume home health services for nursing, PT and OT. He will continue with his services through oncology he may need all of his [facility] prior to [facility] for coverage. will continue to support patient and family during his stay. Chad will transport home via private car at time of discharge.
[2020-05-25 08:57] VITALS: BP 127/79; PULSE 50; RESP 16; TEMP 36.5; O2SAT 98
[2020-05-25] MEDS: CIPROFLOXACIN 400 MG/200 ML BAG 200 MG IVPB (10:23)
[2020-05-25 11:09] VITALS: BP 151/87; PULSE 66; RESP 16; TEMP 36.6; O2SAT 96
--- NOTE | 2020-05-25 12:25 | PT.INTREAT ---
Date of service: 05/25/20 Time of Service: 11:30 PT Notes Visit Reasons: CELLULITUS Inpatient Physical Therapy Treatment Note [facility] Date: 05/25/2020 PRECAUTIONS: Fall, WBAT R SUBJECTIVE: Chad is agreeable to participating in PT. He states that he is feeling better today, although he reports that his L foot is bothering him more than his R foot today. OBJECTIVE: PAIN: No c/o pain BED MOBILITY/TRANSFERS Supine-sit: I with HOB flat Sit-stand: S Stand-sit: S GAIT Assistive Device: FWW Weight bearing: Full Assist: SBA in a.m.; S in p.m. Distance: 300' in a.m.; 100' + 200' in p.m. Deviation: No c/o foot pain, bilaterally THEREX: Patient was instructed in several LE strengthening exercises, in a seated position, as per flow sheet. STAIRS: Up/down 6x4 and 4x6 using B rails and a step-over pattern with supervision ASSESSMENT: Patient tolerated session without complaint. He was able to tolerate a progression in gait distance with FWW support and supervision. He demonstrates the ability to bear weight, as tolerated, through B feet with FWW support. PLAN: Continue with gait and transfer training for continued progression towards baseline level of function. TREATMENT CODE/TIME: Session 1: 25 minutes; [id number] x2 Session 2: 30 minutes; [id number] x2
[2020-05-25] MEDS: Insulin Aspart 300 UNITS/3 ML PEN SC (12:46)
--- NOTE | 2020-05-25 13:16 | DSE_ITS ---
Date of service: 05/25/20 Time of Service: 13:16 DS: Diagnosis Discharge Diagnosis (1) Gram-negative bacteremia: Status: Acute (2) Cellulitis of foot, right: Status: Acute (3) History of DVT (deep vein thrombosis): Status: Acute (4) Glioblastoma: Status: Acute Discharge Plan Disposition Patient Disposition: [facility] SWING BED LEVEL 1 Condition: Poor Discharge Details Reason For Visit: CELLULITUS Admit Date/Time: 05/21/20 12:56 Admit Provider: Karsten Mckay Attending Provider: Karsten Mckay Primary Care Provider: Sunday Orellana Hospital Course Hospital Course: This is a 70 yo male with a recent h/o glioblastoma dxd this summer, s/p prtial frontal lobectomy on oral chemotherapy, acute kidney injury hospitalized on 05/12/2020 - 05/14/2020 at [facility], BPH, Essential hypertension, GERD, Gout, HLD, squamous cell CA of neck, previous tobacco abuse. He was brought to ED via EMS d/t fever of 102F at home. Family has noted a sore on the dorsum of the R foot that has worsened and has had some drainage. Today there was a bruise around the area that wasn't noted before. The patient doesn't recall if he traumatized the foot or not. His daughter gives his history and she is is primary healthcare agent. She reported noting that he has been more fatigued over the last several days. He has had no cough/sputum, SOA, runny nose, diarrhea. In the ED noncontrast CT of the R foot showed subcutaneous edema but no evidence of an abscess or aziza involvement. His WBC count is normal but there is a b andemia. His creatinine was 1.61. His last admission was for an acute kidney injury; nephrotoxic agents and dehydration were thought to be responsible. Bactrim, lasix and HCTZ were stopped and his creatinine normalized from 3.6 to 1.22. His Mg was low at time of this admission at 1.1. He was given 2 gram of IV magnesium sulfate. His venous blood lactate was elevated at 2.4. He was given a 1L NS bolus. His NT-proBNP was elevated at 1401. No previous BNP results in the chart. Zosyn initiated for cellulitis treatment. His blood culture grew pseudomonas aeruginosa and his antibiotic coverage was changed to IV cipro 400mg Q12 hours. A 14 day course of IV antibiotics indicated. His WBC count increased to 12.15 then normalized. Creatinine improved to 1.24 His glucose was managed with sliding scale insulin. He was initially placed on stress dosing of steroids; IV hydrocortisone and then re-started on his routine Decadron 3mg po daily. He did have a telehealth visit with his neurooncologist during this hospitalization. He will initiate another course of Temador on Friday, May 29. Transitioning to swingbed status to finish course of IV antibiotics. Home Meds and New Rx's Prescriptions: No Action allopurinol 100 mg tablet 200 mg PO DAILY Qty: 180 RF: 4 Eliquis 5 mg tablet 5 mg PO BID RF: 0 metformin 500 mg tablet See Rx Instructions .ROUTE .COMPLEX RF: 0 tamsulosin [Flomax] 0.4 mg capsule 0.4 mg PO DAILY Qty: 90 RF: 4 multivitamin [Daily Value] 1 EACH tablet 2 ea PO DAILY RF: 0 sennosides [senna] 8.6 mg Tablet 17.2 mg PO QHS RF: 0 atorvastatin [Lipitor] 10 mg Tablet 10 mg PO DAILY RF: 0 ondansetron 8 mg Tablet,Disintegrating 4 mg PO Q8H PRNRF: 0 pantoprazole 40 mg Tablet,Delayed Release (Dr/Ec) 40 mg PO DAILY RF: 0 thiamine HCl (vitamin B1) 100 mg Tablet 100 mg PO DAILY RF: 0 acetaminophen 325 mg Tablet 650 mg PO Q6H PRNRF: 0 levetiracetam 500 mg Tablet 500 mg PO BID RF: 0 dexamethasone 1 mg Tablet 3 mg PO DAILY RF: 0 pyridoxine (vitamin B6) 50 mg Tablet 50 mg PO DAILY RF: 0 temozolomide 140 mg Capsule See Rx Instructions .ROUTE .COMPLEX RF: 0 melatonin 2.5 mg Tablet,Chewable 2.5 mg PO HS RF: 0 Discharge Instructions Activity:: Activity as Tolerated Equipment/Supplies:: No Equipment Needed Diet:: Carb Counting Discharge Orders Discharge Orders: Discharge Order (Routine); Ordered 05/25/20 Ordered By: Karsten Mckay DS: Summary Status at Discharge Functional status at discharge: uses cane/walker Overall status at discharge: patient is progressing back to baseline Mental Status: mental status grossly normal (at his baseline since partial frontal lobectomy / glioblastoma resection.) Speech and Movement: speech and movement normal Mood: congruent mood Affect: normal affect Exam Const General: cooperative and no acute distress Nutritional Appearance: average body habitus Orientation: alert, oriented to person and oriented to place [facility] Head: normocephalic and other (Optune device in place.) Eyes Sclera: sclerae normal EOM: EOM intact bilaterally Resp Effort & Inspection: normal respiratory effort Auscultation: clear to auscultation bilaterally Cardio Jugular venous pressure: no JVD Rate: regular rate Rhythm: regular rhythm Heart Sounds: S1 normal and S2 normal GI Palpation: soft and nontender Auscultation: normal bowel sounds Skin Full body images: 1. Gauze bandage in place over dorsum of foot. Erythema and ecchymosis of dorsum of foot. Extrem General: no calf tenderness and pedal edema bilaterally Psych Speech and Movement: speech and movement normal Mood: congruent mood Affect: normal affect DS: Data Vitals/I&O Vitals and I&O: Vital Signs Temperature 36.6 C 05/25/20 11:09 Temperature Source Temporal Artery Scan 05/25/20 11:09 Pulse 66 05/25/20 11:09 Pulse Rhythm Regular 05/25/20 09:00 Pulse 66 05/23/20 19:00 Respiratory Rate 16 05/25/20 11:09 Respiratory Effort 05/25/20 09:00 Respiratory Depth Normal 05/25/20 09:00 Respiratory Pattern Normal 05/25/20 09:00 Blood Pressure 151/87 H 05/25/20 11:09 Blood Pressure Mean 83 05/23/20 19:00 Blood Pressure Position Supine 05/23/20 16:16 Pulse Oximetry 96 05/25/20 11:09 Oxygen Delivery Method Room Air 05/25/20 11:09 Oxygen Flow Rate 0 05/25/20 11:09 Pain Level 0 05/25/20 11:09 Comment 05/24/20 23:15 Intake & Output 05/24/20 05/25/20 05/25/20 23:59 11:59 23:59 Intake Total 2716.666 / 3335.833 1233.750 / 1233.750 Output Total 650 / 650 1875 / 1875 Balance 2066.666 / 2685.833 -641.250 / -641.250 Weight 98.1 kg Intake: IV 2116.666 / 2495.833 993.750 / 993.750 Oral 600 / 840 240 / 240 Output: Urine 650 / 650 1875 / 1875 Other: Urine Color Light Pao Straw Urine Appearance Cloudy Cloudy Data Completed and Pending Labs on day of discharge: Preliminary micro results at discharge 05/24/20 08:26 Blood Culture - Preliminary Blood NO GROWTH 24 HOURS 05/24/20 08:17 Blood Culture - Preliminary Blood NO GROWTH 24 HOURS 05/21/20 11:25 Blood Culture - Preliminary Blood NO GROWTH 72 HOURS 05/21/20 09:20 Blood Culture - Preliminary Blood Pseudomonas aeruginosa [facility] Medical History Actinic keratitis (06/07/14) LEFT CHEONDOISM/FOREHEAD Age-related macular degeneration Allergic rhinitis BPH w urinary obs/LUTS (03/01/16) Cataract Cervical disc prolapse with radiculopathy diskectomy/fusion 2000 Diverticulosis of colon without diverticulitis Elevated PSA (03/01/16) Essential hypertension (09/30/13) Weight and alcohol dependent Family hx of prostate cancer Gastroesophageal reflux disease HH; LAP JOS[facility] Glioblastoma Gout Hematuria, unspecified History of DVT (deep vein thrombosis) History of tobacco use Hyperlipidemia Neoplasm of unspecified nature of bone, soft tissue, and skin (08/07/15) Obesity Shoulder pain right; full thickness tear 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 THORPE; RIGHT SIDE OF NECK; LEFT SIDE OF FOREHEAD Surgical History Appendectomy Correction, Hammertoe RIGHT nasal surgery left nasal polypoid lesion removed Vasectomy Family History Mother Stroke Father Heart disease Sister No problems noted. Sister No problems noted. Sister No problems noted. Sister No problems noted. Daughter No problems noted. Daughter No problems noted. Maternal Grandfather Edema Heart disease Paternal Grandfather , ACCIDENTAL at age 49. No problems noted. Paternal Grandmother No problems noted. Maternal Grandmother Stroke Social History Smoking/Tobacco Use Status: Former Tobacco Use Quit Date: 09/26/87 Smoking risk assessment performed?: Yes Alcohol Intake: former Drug use: Never Substance use type: does not use Caregiver/Support person: No Household members: spouse Pets and animals: No Do you think of yourself as: straight/heterosexual Duration: 45-60 minutes/day Frequency: 1-2 times per week Vanita/Yazdanism: Faith Special vanita needs: No Do you feel safe at home: Yes Do you feel safe in your relationship?: Yes
--- NOTE | 2020-05-25 13:36 | HPE_ITS ---
Date of service: 05/25/20 Time of Service: 13:36 Assessment and Plan Assessment and plan (1) Gram-negative bacteremia: Status: Acute Assessment and plan: 10 more days of IV cipro 400mg Q12H. Monitor CMP (2) Cellulitis of foot, right: Status: Acute Assessment and plan: Improving. Large blister formed over area due ecchymoses that developed; pt likely had trauma to the area but doesn't recall. He is on Eliquis so does bruise easily. (3) History of DVT (deep vein thrombosis): Status: Acute Assessment and plan: Cont Eliquis (4) Glioblastoma: Status: Acute Assessment and plan: Optune device in place. Temador to resume on 05/29/2020. Telehealth visit this AM with his oncologist. History of Present Illness History of Present Illness Chief Complaint: bacteremia, cellulitis Narrative: This is a 70 yo male with a recent h/o glioblastoma dxd this summer, s/p prtial frontal lobectomy on oral chemotherapy, acute kidney injury hospitalized on 05/12/2020 - 05/14/2020 at [facility], BPH, Essential hypertension, GERD, Gout, HLD, squamous cell CA of neck, previous tobacco abuse. He was brought to ED via EMS d/t fever of 102F at home. Family has noted a sore on the dorsum of the R foot that has worsened and has had some drainage. Today there was a bruise around the area that wasn't noted before. The patient doesn't recall if he traumatized the foot or not. His daughter gives his history and she is is primary healthcare agent. She reported noting that he has been more fatigued over the last several days. He has had no cough/sputum, SOA, runny nose, diarrhea. In the ED noncontrast CT of the R foot showed subcutaneous edema but no evidence of an abscess or aziza involvement. His WBC count is normal but there is a bandemia. His creatinine was 1.61. His last admission was for an acute kidney injury; nephrotoxic agents and dehydration were thought to be responsible. Bactrim, lasix and HCTZ were stopped and his creatinine normalized from 3.6 to 1.22. His Mg was low at time of this admission at 1.1. He was given 2 gram of IV magnesium sulfate. His venous blood lactate was elevated at 2.4. He was given a 1L NS bolus. His NT-proBNP was elevated at 1401. No previous BNP results in the chart. Zosyn initiated for cellulitis treatment. His blood culture grew pseudomonas aeruginosa and his antibiotic coverage was changed to IV cipro 400mg Q12 hours. A 14 day course of IV antibiotics indicated. His WBC count increased to 12.15 then normalized. Creatinine improved to 1.24 His glucose was managed with sliding scale insulin. He was initially placed on stress dosing of steroids; IV hydrocortisone and then re-started on his routine Decadron 3mg po daily. He did have a telehealth visit with his neurooncologist during this hospitalization. He will initiate another course of Temador on Friday, May 29. Transitioning to swingbed status to finish course of IV antibiotics. He denies fever/chills, N/V, diarrhea. + R leg pain from knee to toes has improved. No PARADA. Review of Systems All systems reviewed & are unremarkable except as noted in HPI and below PFSH Medical History Actinic keratitis (06/07/14) LEFT RESTORATIONIST/FOREHEAD Age-related macular degeneration Allergic rhinitis BPH w urinary obs/LUTS (03/01/16) Cataract Cervical disc prolapse with radiculopathy diskectomy/fusion 2000 Diverticulosis of colon without diverticulitis Elevated PSA (03/01/16) Essential hypertension (09/30/13) Weight and alcohol dependent Family hx of prostate cancer Gastroesophageal reflux disease HH; LAP JOS[facility] Glioblastoma Gout Hematuria, unspecified History of DVT (deep vein thrombosis) History of tobacco use Hyperlipidemia Neoplasm of unspecified nature of bone, soft tissue, and skin (08/07/15) Obesity Shoulder pain right; full thickness tear 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 THORPE; RIGHT SIDE OF NECK; LEFT SIDE OF FOREHEAD Surgical History Appendectomy Correction, Hammertoe RIGHT nasal surgery left nasal polypoid lesion removed Vasectomy Family History Mother Stroke Father Heart disease Sister No problems noted. Sister No problems noted. Sister No problems noted. Sister No problems noted. Daughter No problems noted. Daughter No problems noted. Maternal Grandfather Edema Heart disease Paternal Grandfather , ACCIDENTAL at age 49. No problems noted. Paternal Grandmother No problems noted. Maternal Grandmother Stroke Social History Smoking/Tobacco Use Status: Former Tobacco Use Quit Date: 09/26/87 Smoking risk assessment performed?: Yes Alcohol Intake: former Drug use: Never Substance use type: does not use Caregiver/Support person: No Household members: spouse Pets and animals: No Do you think of yourself as: straight/heterosexual Duration: 45-60 minutes/day Frequency: 1-2 times per week Vanita/Mandaen: Pentecostal Special vanita needs: No Do you feel safe at home: Yes Do you feel safe in your relationship?: Yes Meds Home Medications and Allergies Home Medications Medication Instructions Recorded Confirmed Type multivitamin [Daily Value] 2 ea PO DAILY 11/04/12 05/21/20 History allopurinol 100 mg tablet 200 mg PO DAILY #180 tab-cap 08/11/19 05/21/20 Rx atorvastatin [Lipitor] 10 mg PO DAILY 04/24/20 05/21/20 History ondansetron 4 mg PO Q8H PRN 04/24/20 05/22/20 History pantoprazole 40 mg PO DAILY 04/24/20 05/21/20 History sennosides [senna] 17.2 mg PO QHS 04/24/20 05/21/20 History thiamine HCl (vitamin B1) 100 mg PO DAILY 04/24/20 05/21/20 History apixaban 5 mg tablet 5 mg PO BID 05/09/20 05/21/20 History metformin 500 mg tablet See Rx Instructions .ROUTE .COMPLEX 05/09/20 05/21/20 History acetaminophen 650 mg PO Q6H PRN 05/12/20 05/21/20 History dexamethasone 3 mg PO DAILY 05/12/20 05/21/20 History levetiracetam 500 mg PO BID 05/12/20 05/21/20 History melatonin 2.5 mg PO HS 05/12/20 05/21/20 History pyridoxine (vitamin B6) 50 mg PO DAILY 05/12/20 05/21/20 History temozolomide See Rx Instructions .ROUTE .COMPLEX 05/12/20 05/21/20 History tamsulosin 0.4 mg capsule 0.4 mg PO DAILY #90 cap 05/25/20 Rx Allergies Allergy/AdvReac Type Severity Reaction Status Date / Time No Known Allergies Allergy Verified 05/21/20 11:21 Exam Narrative Exam Narrative: Const General: cooperative and no acute distress Nutritional Appearance: average body habitus Orientation: alert, oriented to person and oriented to place [facility] Head: normocephalic and other (Optune device in place.) Eyes Sclera: sclerae normal EOM: EOM intact bilaterally Resp Effort & Inspection: normal respiratory effort Auscultation: clear to auscultation bilaterally Cardio Jugular venous pressure: no JVD Rate: regular rate Rhythm: regular rhythm Heart Sounds: S1 normal and S2 normal GI Palpation: soft and nontender Auscultation: normal bowel sounds Skin Full body images: document embedded image 1. Gauze bandage in place over dorsum of foot. Erythema and ecchymosis of dorsum of foot. Extrem General: no calf tenderness and pedal edema bilaterally Psych Speech and Movement: speech and movement normal Mood: congruent mood Affect: normal affect Results Labs Result diagrams: 05/24/20 06:37 05/24/20 06:37 Last Vital Signs Temp 36.6 C 05/25/20 11:09 Pulse 66 05/25/20 11:09 Resp 16 05/25/20 11:09 BP 151/87 H 05/25/20 11:09 Pulse Ox 96 05/25/20 11:09 COVID-19 Screening Have you,or household,traveled outside [place] in last 14 days?: Yes Had IN PERSON contact w/suspected or confirmed C-19 person: No
--- NOTE | 2020-05-25 14:11 | W.NUTRFU ---
Date of service: 05/25/20 Time of Service: 13:30 Nutritional Follow up NOTE: ASSESSMENT Chad ( 70 y/o male) w/ R foot cellulitis, sepsis, edema and DM2. On Metformin 500 mg at home. Documentation reveals elevated BG 176 (05/23), 150 mg/dl ( 05/24) Daughter was present and reports that Chad and his have difficulty using the glucometer at home and were interested in the possibility of a CGM to help track BG levels. This RD observed that he consumed >75% of lunch meal and patient reports good appetite. On B-6 and B-1 to cover micro-nutrient needs. Noted: Total pro 4.8 (L), Alb 1.8 (L). NUTRITION DIAGNOSIS: DM2 r/t steroid use and insulin resistance AEB: elevated BG levels, on metformin INTERVENTION: Provided basic DM education on CHO counting, types of CHO's, benefits of CGM and BG tracking for trends and premptive actions to promote time in range. Reviewed desired BG levels. Provided literature on CGM and aforementioned concepts. Provide contact information for this RD for f/u outpatient appointment w/ potential CGM placement.. Recommended patient conatact PCP or speak with hospitalist r/t CGM prescription. Recommend PRO supp 30 ml BID to promote wound healing. MONITOR/EAVAL: Follow up with assistant case manager and Hospitalist r/t CGM for this patient. Encourage further DM education for patient and family member. . Time Spent in Nutritional Counseling and Treatment: 20 minutes face to face
--- NOTE | 2020-05-26 08:00 | INDS_ITS ---
Date of service: 05/26/20 PT Notes Visit Reasons: CELLULITUS Inpatient Physical Therapy Discharge Summary Date: 05/26/2020 Referring Doctor: Karsten Mckay MD PT Orders: PT CONSULT: Non-urgent Precautions: Fall risk, standard Patient Profile/Admitting Diagnosis: Chad converts to swing bed level 1 as of 05/25/2020 and is discharged today. He is 70 yo male with diagnosis of glioblastoma multiforme g, s/S/P partial frontal lobectomy with Optune device started just last week and on oral chemotherapy, acute kidney injury hospitalized on 05/12/2020 - 05/14/2020 at [facility], BPH, Essential hypertension, GERD, Gout, HLD, squamous cell CA of neck, previous tobacco abuse. He was brought to ED via EMS due to higher fever, eventually confirmed to be related to cellulitis of R foot. PMHX: Medical History Actinic keratitis (06/07/14) LEFT TAOISM/FOREHEAD Age-related macular degeneration Allergic rhinitis BPH w urinary obs/LUTS (03/01/16) Cataract Cervical disc prolapse with radiculopathy diskectomy/fusion 2000 Diverticulosis of colon without diverticulitis Elevated PSA (03/01/16) Essential hypertension (09/30/13) Weight and alcohol dependent Family hx of prostate cancer Gastroesophageal reflux disease HH; LAP JOS[facility] Glioblastoma Gout Hematuria, unspecified History of DVT (deep vein thrombosis) History of tobacco use Hyperlipidemia Neoplasm of unspecified nature of bone, soft tissue, and skin (08/07/15) Obesity Shoulder pain right; full thickness tear 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 THORPE; RIGHT SIDE OF NECK; LEFT SIDE OF FOREHEAD Surgical History Appendectomy Correction, Hammertoe RIGHT nasal surgery left nasal polypoid lesion removed Vasectomy Social History/Home Situation: Patient reports to me that he lives in a private home alone though [place]. Is a split-level home, with stairs and a rail. He lives with his . His daughter later presents to the room, who is his main care provider. I neglect to confirm his report to me, with her. He was using a walker prior to admission since January, when he began falling at high frequency, which was later discovered to be related to his glioblastoma. Equipment Owned/DME: Walker Subjective: Daughter Clare is present during this evaluation. She is concerned about how his dad's wound on the right foot has looked in comparison to when he first came in to the hospital. She is also worried about how the swelling in the left foot looked worsened due to ELLA wraps placement. Objective: General Observation: Leans to L while seated on recliner chair. This is a collapsibility Optune device removed by patient two days ago. IV left cubital fossa. Cummins catheter in place. Wound on dorsum of R foot red with dark purplish edges and orange drainage. ELLA wraps might have moved up foot and caused edema to relocate to L foot. New blister on the distal third of sural area most likely from rubbing against the recliner upholstery. Toes on the L non-blanchable. Mental Status: Somewhat somnolent. Oriented to person and place. Pain: Unquantified discomfort in R foot ROM: Right Upper Extremity: Shoulder Flexion WFL. Shoulder abduction WFL. Elbow flexion WFL. Wrist flexion WFL. Functional opening and closing of hand WFL. Left Upper Extremity: Shoulder Flexion WFL. Shoulder abduction WFL. Elbow flexion WFL. Wrist flexion WFL. Functional opening and closing of hand WFL. Right Lower Extremity: Hip flexion WFL. Hip abduction WFL. Knee flexion WFL. Ankle dorsiflexion about 10 degrees beyond neutral. Ankle plantarflexion WFL. Left Lower Extremity: Hip flexion WFL. Hip abduction WFL. Knee flexion WFL. Ankle dorsiflexion about 10 degrees beyond neutral. Ankle plantarflexion WFL. Strength: Right Upper Extremity: Shoulder flexors 4-/5. Shoulder abductors 4-/5. Elbow flexors 4-/5. Elbow extensors 4-/5. Condenser Tester strong. Left Upper Extremity: Shoulder flexors 4-/5. Shoulder abductors 4-/5. Elbow flexors 4-/5. Extensors 4-/5. Condenser Tester strong. Right Lower Extremity: Hip flexors 3+/5. Hip abductors 3+/5. Knee flexors 4-/5. Knee extensors 3+/5. Ankle dorsiflexors 3-/5. Ankle plantarflexors 4/5. Left Lower Extremity:Hip flexors 4-/5. Hip abductors 4-/5. Knee flexors 4-/5. Knee extensors 4-/5. Ankle dorsiflexors 4-/5. Ankle plantarflexors 4/5. Sensation: Intact throughout B lower extremities Bed Mobility/Transfers: Sit to stand supervision, requires use of front wheeled walker for stability Stand to sit supervision, requires use of front wheeled walker for stability Bed to chair supervision, requires use of front wheeled walker for stability Chair to bed supervision, requires use of front wheeled walker for stability Gait: 250 feet using front wheeled walker with full weight bearing on bilateral lower extremities requiring standby assist with mild lateral trunk lean to the left to somehow relieve discomfort in the right foot. Mild shortness of breath observed at end of activity and that subsided with rest. Decreased dorsiflexion in both ankles. Balance: Static Sitting: Good Dynamic Sitting: Fair Static Standing: Fair Dynamic Standing: Fair 4-Stage Balance Test: Only able to maintain feet together for about 8 minutes. Unable to do so for the other three positions. High fall risk. Special Tests: Mobility Limitations Standardized Measure [facility] 6 clicks Basic Mobility Inpatient Short Form: Raw Score: 18 CMS score: 47% disability Assessment: Patient is a 70 year old male referred to physical therapy services with the diagnosis of right foot cellulitis in the presence of recent frontal lobe resection secondary to glioblastoma on oral chemotherapy, s/P acute kidney injury hospitalized on 05/12/2020 - 05/14/2020 at [facility]. Patient presents with clinical signs and symptoms consistent with fall risk, global weakness, impaired functional ability and ambulation tolerance due to referred diagnosis. Impairment level findings: Lower extremity weakness with R>>L Poor balance Decreased activity tolerance/SOB Swelling to B legs Diabetic?Venous stasis? ulcer to dorsum of R foot New blister on distal sural area on the R Functional limitations: AMPAC score of 50% disability, and assistance with all functional transfers, ambulation, and bed mobility, much impaired from his premorbid level of function. He is a fall risk. He requires lipid intervention to attend the above impairments and functional deficits, to attempt achievement of discharge home with care of family. Goals: Goals X1 week 1. Supine-Sit independent NOT MET 2. Sit-Supine independent NOT MET 3. Sit-Stand independent NOT MET 4. Stand-Sit independent NOT MET 5. Bed-Chair independent NOT MET 6. Chair-Bed independent NOT MET 7. Gait 300 feet with walker, close supervision NOT MET 8. Stairs 10, close supervision, with rail NOT MET 9. Independent with home exercise program NOT MET 10. Balance fair with dynamic activities, passes stage I and II of stage IV balance test NOT MET DISCHARGE RECOMMENDATIONS: Will re-evalaute under swing bed level 1 for continued rehabilitation. TREATMENT CODE/TIME: NE Thank you for the opportunity to participate in the care of this patient. Chinyere Holbrook PT, DPT, CLT [facility] [place], [place]
== END 2020-05-25 14:34 | disposition swing bed (61) | DRG 872 ==
LOC: ER 14:14 → ICU 05-22 08:26 → MS 05-23 22:58
PROVIDERS: Admitting Provider Family Medicine; Emergency Provider Physician Assistant; PCP Emergency Medicine; Visit Provider Family Medicine
DX: A41.52 Sepsis due to Pseudomonas (principal); L03.115 Cellulitis of right lower limb; H35.3190 Nonexudative age-related macular degeneration, unspecified eye, stage unspecified; J30.9 Allergic rhinitis, unspecified; N40.1 Benign prostatic hyperplasia with lower urinary tract symptoms; K21.9 Gastro-esophageal reflux disease without esophagitis; Z86.718 Personal history of other venous thrombosis and embolism; F17.210 Nicotine dependence, cigarettes, uncomplicated; N18.9 Chronic kidney disease, unspecified; I12.9 Hypertensive chronic kidney disease with stage 1 through stage 4 chronic kidney disease, or unspecified chronic kidney disease; K57.90 Diverticulosis of intestine, part unspecified, without perforation or abscess without bleeding
CPT/HCPCS: 36415; 80048; 80053; 87040; 87077; 93306; 96361; 96365; 96367; 96368; 97162; 97530; 99223; 99232; 99233; 99239; 99254; 99285; 99305; U0003; 71045; 73630; 73700; 80202; 81003; 81015; 83605; 83735; 83880; 85025; 87186; J0131; J0744; J1720; J2543; J8540

== ENCOUNTER 2020-05-25 13:28 | Inpatient (IN) | payer MEDICARE, OTHER, SELFPAY ==
--- NOTE | 2020-05-25 11:01 | CMSA_ITS ---
- If Service Date Differs Date of service: 05/25/20 Time of Service: 11:03 SB Psychosocial/Act.Assessment - Hospital Admission Admission Date: 05/21/20 Admission From:: Home Diagnosis:: Cellulitis - Swing Bed Admission Swing Bed Admit Date:: 05/25/20 Swing Bed Level of Care: Level 1/SNF - Social Supports PREVIOUS FUNCTIONAL STATUS/SOCIAL/FAMILY SUPPORTS:: Chad lives in [place], [place] with his spouse. - Prior to Admission Living Arrangements/Environment Prior to Admission:: Chad resides in [place], [place] with his spouse. Has Optune device treatment of Glioblastoma, VNA: RN, PT, OT. FWW, glucometer - [place]: Yes - Benefits Financial: Medicare, [facility] Health Benefits - [place] Active Denominational Member:: Yes Denominational Affliation: Semaj Brown - Advance Directives for Healthcare Advance Directives for Healthcare: Advance Directives Advance Directive Agent: Tomasa as agent, Clare and Carmelita as alternates. - Medical History PAST MEDICAL HISTORY/PAST SURGICAL HISTORY:: 70 male with recent dx glioblastoma , s/p right frontal lobectomy, has been undergoing chemo/XRT. Macular degeneration, allergic rhinitis, BPH with urinary obs/LUTS, cataracts, cervical disc prolapse with radiculopathy, diverticulosis of colon, essential hypertension, GERD, gout, hematuria, hx of DVT, hx of tobacco use, hyperlipidemia, neoplasm of bone, soft tissue and skin, obesity, shoulder pain, squamous cell carcinoma of skin, squamous cell carcinoma of neck, appendectomy, right hammertoe correction, nasal surgery, vasectomy. - Admission Data Reason for Swing Bed Admission:: IV ABX x2 weeks for Cellulitis Discharge Plan:: Chad will be discharged home when medically ready and after a short swing bed stay to complete course of abx. Upon discharge he will resume home health services for nursing, PT and OT. He will continue with his services through oncology he may need all of his [facility] prior to [facility] for coverage. will continue to support patient and family during his stay. Chad will transport home via private car at time of discharge. Assessment: Cellulitis of foot, right: Medicare payer for 2 weeks IV ABX; treatment of cellulitis manisha-negative bacteremia: Blood culture growing Pseudomonas aeruginosa. IV cipro 400mg BID for decreased number of daily infusions required. Planning 2 weeks total of IV antibiotics. Tailor Helper: Jennifer Tan Date Assessment was completed:: 05/25/20
--- NOTE | 2020-05-25 11:10 | CMSCP_ITS ---
- If Service Date Differs Date of service: 05/25/20 Time of Service: 16:34 Swingbed Plan of Care Plan of care: SWING BED PROGRAM ACTIVITIES/DISCHARGE PLAN OF CARE ACTIVITIES PLAN Date: 05/25/20 Identified Need: Life Enrichment during extended hospitalization Intervention/Plan: CART items, remote family/friend contact. Initials: EBONY DISCHARGE PLAN Date: 05/25/20 Identified Need: Cellulitis of foot, right Intervention/Plan: IV ABX; treatment of cellulitis manisha-negative bacteremia: Blood culture growing Pseudomonas aeruginosa. IV cipro 400mg BID for decreased number of daily infusions required. Planning 2 weeks total of IV antibiotics. Convention Services Manager: Jennifer Tan Initials: EBONY
--- NOTE | 2020-05-25 13:36 | HPE_ITS ---
SWINGBED ADMISSION Date of service: 05/25/20 Time of Service: 13:36 Assessment and Plan Assessment and plan (1) Gram-negative bacteremia: Status: Acute Assessment and plan: 10 more days of IV cipro 400mg Q12H. Monitor CMP (2) Cellulitis of foot, right: Status: Acute Assessment and plan: Improving. Large blister formed over area due ecchymoses that developed; pt likely had trauma to the area but doesn't recall. He is on Eliquis so does bruise easily. (3) History of DVT (deep vein thrombosis): Status: Acute Assessment and plan: Cont Eliquis (4) Glioblastoma: Status: Acute Assessment and plan: Optune device in place. Temador to resume on 05/29/2020. Telehealth visit this AM with his oncologist. History of Present Illness History of Present Illness Chief Complaint: bacteremia, cellulitis Narrative: This is a 70 yo male with a recent h/o glioblastoma dxd this summer, s/p prtial frontal lobectomy on oral chemotherapy, acute kidney injury hospitalized on 05/12/2020 - 05/14/2020 at [facility], BPH, Essential hypertension, GERD, Gout, HLD, squamous cell CA of neck, previous tobacco abuse. He was brought to ED via EMS d/t fever of 102F at home. Family has noted a sore on the dorsum of the R foot that has worsened and has had some drainage. Today there was a bruise around the area that wasn't noted before. The patient doesn't recall if he traumatized the foot or not. His daughter gives his history and she is is primary healthcare agent. She reported noting that he has been more fatigued over the last several days. He has had no cough/sputum, SOA, runny nose, diarrhea. In the ED noncontrast CT of the R foot showed subcutaneous edema but no evidence of an abscess or aziza involvement. His WBC count is normal but there is a bandemia. His creatinine was 1.61. His last admission was for an acute kidney injury; nephrotoxic agents and dehydration were thought to be responsible. Bactrim, lasix and HCTZ were stopped and his creatinine normalized from 3.6 to 1.22. His Mg was low at time of this admission at 1.1. He was given 2 gram of IV magnesium sulfate. His venous blood lactate was elevated at 2.4. He was given a 1L NS bolus. His NT-proBNP was elevated at 1401. No previous BNP results in the chart. Zosyn initiated for cellulitis treatment. His blood culture grew pseudomonas aeruginosa and his antibiotic coverage was changed to IV cipro 400mg Q12 hours. A 14 day course of IV antibiotics indicated. His WBC count increased to 12.15 then normalized. Creatinine improved to 1.24 His glucose was managed with sliding scale insulin. He was initially placed on stress dosing of steroids; IV hydrocortisone and then re-started on his routine Decadron 3mg po daily. He did have a telehealth visit with his neurooncologist during this hospitalization. He will initiate another course of Temador on Friday, May 29. Transitioning to swingbed status to finish course of IV antibiotics. He denies fever/chills, N/V, diarrhea. + R leg pain from knee to toes has improved. No PARADA. Review of Systems All systems reviewed & are unremarkable except as noted in HPI and below PFSH Medical History Actinic keratitis (06/07/14) LEFT TAOIST/FOREHEAD Age-related macular degeneration Allergic rhinitis BPH w urinary obs/LUTS (03/01/16) Cataract Cervical disc prolapse with radiculopathy diskectomy/fusion 2000 Diverticulosis of colon without diverticulitis Elevated PSA (03/01/16) Essential hypertension (09/30/13) Weight and alcohol dependent Family hx of prostate cancer Gastroesophageal reflux disease HH; LAP JOSH Glioblastoma Gout Hematuria, unspecified History of DVT (deep vein thrombosis) History of tobacco use Hyperlipidemia Neoplasm of unspecified nature of bone, soft tissue, and skin (08/07/15) Obesity Shoulder pain right; full thickness tear 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 THORPE; RIGHT SIDE OF NECK; LEFT SIDE OF FOREHEAD Surgical History Appendectomy Correction, Hammertoe RIGHT nasal surgery left nasal polypoid lesion removed Vasectomy Family History Mother Stroke Father Heart disease Sister No problems noted. Sister No problems noted. Sister No problems noted. Sister No problems noted. Daughter No problems noted. Daughter No problems noted. Maternal Grandfather Edema Heart disease Paternal Grandfather , ACCIDENTAL at age 49. No problems noted. Paternal Grandmother No problems noted. Maternal Grandmother Stroke Social History Smoking/Tobacco Use Status: Former Tobacco Use Quit Date: 09/26/87 Smoking risk assessment performed?: Yes Alcohol Intake: former Drug use: Never Substance use type: does not use Caregiver/Support person: No Household members: spouse Pets and animals: No Do you think of yourself as: straight/heterosexual Duration: 45-60 minutes/day Frequency: 1-2 times per week Vanita/Methodist: Congregation Special vanita needs: No Do you feel safe at home: Yes Do you feel safe in your relationship?: Yes Meds Home Medications and Allergies Home Medications Medication Instructions Recorded Confirmed Type multivitamin [Daily Value] 2 ea PO DAILY 11/04/12 05/21/20 History allopurinol 100 mg tablet 200 mg PO DAILY #180 tab-cap 08/11/19 05/21/20 Rx atorvastatin [Lipitor] 10 mg PO DAILY 04/24/20 05/21/20 History ondansetron 4 mg PO Q8H PRN 04/24/20 05/22/20 History pantoprazole 40 mg PO DAILY 04/24/20 05/21/20 History sennosides [senna] 17.2 mg PO QHS 04/24/20 05/21/20 History thiamine HCl (vitamin B1) 100 mg PO DAILY 04/24/20 05/21/20 History apixaban 5 mg tablet 5 mg PO BID 05/09/20 05/21/20 History metformin 500 mg tablet See Rx Instructions .ROUTE .COMPLEX 05/09/20 05/21/20 History acetaminophen 650 mg PO Q6H PRN 05/12/20 05/21/20 History dexamethasone 3 mg PO DAILY 05/12/20 05/21/20 History levetiracetam 500 mg PO BID 05/12/20 05/21/20 History melatonin 2.5 mg PO HS 05/12/20 05/21/20 History pyridoxine (vitamin B6) 50 mg PO DAILY 05/12/20 05/21/20 History temozolomide See Rx Instructions .ROUTE .COMPLEX 05/12/20 05/21/20 History tamsulosin 0.4 mg capsule 0.4 mg PO DAILY #90 cap 05/25/20 Rx Allergies Allergy/AdvReac Type Severity Reaction Status Date / Time No Known Allergies Allergy Verified 05/21/20 11:21 Exam Narrative Exam Narrative: Const General: cooperative and no acute distress Nutritional Appearance: average body habitus Orientation: alert, oriented to person and oriented to place [facility] Head: normocephalic and other (Optune device in place.) Eyes Sclera: sclerae normal EOM: EOM intact bilaterally Resp Effort & Inspection: normal respiratory effort Auscultation: clear to auscultation bilaterally Cardio Jugular venous pressure: no JVD Rate: regular rate Rhythm: regular rhythm Heart Sounds: S1 normal and S2 normal GI Palpation: soft and nontender Auscultation: normal bowel sounds Skin Full body images: document embedded image 1. Gauze bandage in place over dorsum of foot. Erythema and ecchymosis of dorsum of foot. Extrem General: no calf tenderness and pedal edema bilaterally Psych Speech and Movement: speech and movement normal Mood: congruent mood Affect: normal affect Results Labs Result diagrams: 05/24/20 06:37 05/24/20 06:37 Last Vital Signs Temp 36.6 C 05/25/20 11:09 Pulse 66 05/25/20 11:09 Resp 16 05/25/20 11:09 BP 151/87 H 05/25/20 11:09 Pulse Ox 96 05/25/20 11:09 COVID-19 Screening Have you,or household,traveled outside [place] in last 14 days?: Yes Had IN PERSON contact w/suspected or confirmed C-19 person: No cc: Dictated by: KARSTEN COLLINS MD Dictated: Time: 1336 <Electronically signed by Karsten Collins M.D.> Date: 1343 Date: Date: Transcribed Date: 05/25/20 Transcribed Time: 1336By: [email or web address] This is privileged, confidential information, intended only for the provider named. Any use or distribution by any person other than this provider is strictly prohibited. If you receive this report in error, please notify us immed iately at [phone] and return the original report to us at the address above. Thank you.
--- NOTE | 2020-05-25 14:49 | PHACLINREV_ITS ---
Pharmacy Admission Review - Admission Clinical Review No Known Allergies Allergy (Verified 05/21/20 11:21) Height 6 ft 1 in Weight 98.1 kg - Renal Dosing Medications needing adjustments: Reviewed (Crcl ~63 mL/min currrent meds okay) - Anticoagulation DVT Prohphylaxis: N/A Therapeutic Anticoagulation: Reviewed Medications: Apixaban - Opiate Usage Evaluate Pain Scale/Pains Meds: Reviewed (last BM documented was on 05/22/2020) Scheduled Bowel Reg ordered if on Opiates?: Yes - Relevant Labs Electrolytes, C-Reactive P, ESR: Reviewed (Cl was 114 yesterday) - DM Control Insulin Dosing: Reviewed (sliding scale aspart ordered) - Heart Failure/IA EF%, ELLA's, B-Blockers, Diuretics: N/A - BP Control If elevated: Reviewed (BP 151/87. BP has been elevated some last night and today versus previous days) - Qtc Review If Elevated: N/A - IV to PO Switch IV Medications: Reviewed - Home Meds Home Med List reviewed: Reviewed Relevent Home Meds Not ordered & why?: Metformin (has sliding scale aspart ordered), ondansetron (was discontinued as pt wasnt using and ciprofloxacin was ordered increasing risk of QT prolongation). Temozolamide also not currently ordered. [facility] pharmacy called to ask if we could order this med as if they dis pensed it while the pt is admitted the insurance likely wouldn't cover it. Med has been ordered and is in the pharmacy waiting for order. Per [facility] pharmacy the pt takes a total of 160 mg daily for 5 days a month (using 20 mg and 140 mg caps) and is due to start 05/31 or 06/01. They were going to inform the provider at [facility] that we were going to give the med to the the pt while he's here on swingbed. Need to find out exact start date; it sounded like this information would be relayed to us by the prescribing provider? - Current meds Current Medication Order Review: Intervened (Adjusted timing of pantoprazole to 0730 based on med administration time policy.) - Comments Comments/Follow Ups: Watch BP, BG, Crcl, labs and for med changes (possible renal dosing adjustments, order/start date of temozolomide, need of additional BM meds).
[2020-05-25 15:30] VITALS: BP 163/89; PULSE 46; RESP 17; TEMP 36.1; O2SAT 99
[2020-05-25] MEDS: Insulin Aspart 300 UNITS/3 ML PEN SC (16:51)
[2020-05-25] MEDS: Apixaban 5 MG TAB PO (19:56)
[2020-05-25] MEDS: Magnesium Oxide 400 MG TAB PO (19:56)
[2020-05-25] MEDS: levETIRAcetam 500 MG TAB PO (19:56)
[2020-05-25] MEDS: LORazepam 0.5 MG TAB PO (21:07)
[2020-05-25] MEDS: CIPROFLOXACIN 400 MG/200 ML BAG 200 MG IVPB (21:07)
[2020-05-25] MEDS: Senna TAB 2 TAB PO (21:07)
[2020-05-25] MEDS: Melatonin 3 MG TAB PO (21:08)
[2020-05-26 01:10] VITALS: BP 105/77; PULSE 96; RESP 17; TEMP 36.5; O2SAT 97
[2020-05-26] MEDS: Normal Saline 1,000 ML 125 ML IV ×3 (01:27→20:40)
[2020-05-26 01:37] LABS: HCT 31.3 % (40.0-50.0); HGB 10.3 g/dL (13.5-17.5)
[2020-05-26 06:36] LABS: HCT 26.2 % (40.0-50.0); HGB 8.7 g/dL (13.5-17.5); MCH 30.9 pg (27.0-33.0); MCHC 33.2 % (32.0-36.0); MCV 92.9 fL (80-95); MPV 11.8 fL (8.0-11.0); Platelet Count 100 10^3/uL (130-400); RBC 2.82 10^6/uL (4.36-5.78); RDW 13.7 % (11.8-14.1); RDW-SD 46.4 fL; WBC 7.06 10^3/uL (4.4-10.8)
--- NOTE | 2020-05-26 07:02 | W.UROLOGYCON ---
Assessment and Plan Assessment and plan (1) Gross hematuria: Status: Acute Assessment and plan: I would expect the most likely scenario for his bleeding involves a combination of catheter trauma plus anticoagulants. Our usual work-up includes imaging studies followed by cystoscopy. The patient is not overly interested in any type of work-up especially now that the urine has cleared. If the hematuria were to recur, I think it would be reasonable to try him on a 5 alpha reductase inhibitor to decrease the vascularity of the prostate. We could also revisit the possibility of a more invasive procedure like a cystoscopy and retrograde pyelogram. (2) Cellulitis of foot, right: Status: Acute (3) History of DVT (deep vein thrombosis): Status: Acute History of Present Illness History of Present Illness Chief Complaint: Gross Hematuria Narrative: This is a 70-year-old gentleman who is well-known to me from the outpatient clinic. He is followed for an elevated PSA and for lower urinary tract symptoms. His PSA has fluctuated over the years. He has never had a diagnosis of prostate cancer. We have tended to monitor him every 6 months or so. His health has deteriorated since our last office visit. He was diagnosed with glioblastoma and underwent a subtotal resection, radiation therapy and chemotherapy. He developed bilateral deep vein thromboses. He had an IVC filter placed and he was then started on Eliquis. He developed right lower extremity cellulitis and sepsis and is currently hospitalized on a swing bed for IV antibiotics. During this hospitalization, a Cummins catheter was placed. The urine was initially clear, but last evening, the urine became bloody and I have been asked to see him for the hematuria. As of this morning, the urine has returned to a clear color. He has no history of kidney stones or prior urologic surgeries. From his previous exams and imaging, we know that he has some enlargement of his prostate. Review of Systems Constitutional Constitutional: Reports frequent falls and Reports lethargy Cardiovascular Cardiovascular: Denies chest pain and Denies irregular heart rhythm Respiratory Respiratory: Denies cough and Denies hemoptysis Neurologic Neurologic: Reports frequent falls Hematologic/Lymphatic Hematologic/Lymphatic: Reports easy bleeding and Reports easy bruising Comments: On [facility] Medical History (Updated 05/26/20 @ 07:06 by Hitesh Pineda MD) Actinic keratitis (06/07/14) LEFT MORMONISM/FOREHEAD Age-related macular degeneration Allergic rhinitis BPH w urinary obs/LUTS (03/01/16) Cataract Cervical disc prolapse with radiculopathy diskectomy/fusion 2000 Diverticulosis of colon without diverticulitis Elevated PSA (03/01/16) Essential hypertension (09/30/13) Weight and alcohol dependent Family hx of prostate cancer Gastroesophageal reflux disease HH; [facility] JOS[facility] Glioblastoma Gout Gross hematuria Hematuria, unspecified History of DVT (deep vein thrombosis) History of tobacco use Hyperlipidemia Neoplasm of unspecified nature of bone, soft tissue, and skin (08/07/15) Obesity Shoulder pain right; full thickness tear 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 THORPE; RIGHT SIDE OF NECK; LEFT SIDE OF FOREHEAD Surgical History Appendectomy Correction, Hammertoe RIGHT nasal surgery left nasal polypoid lesion removed Vasectomy Family History Mother Stroke Father Heart disease Sister No problems noted. Sister No problems noted. Sister No problems noted. Sister No problems noted. Daughter No problems noted. Daughter No problems noted. Maternal Grandfather Edema Heart disease Paternal Grandfather , ACCIDENTAL at age 49. No problems noted. Paternal Grandmother No problems noted. Maternal Grandmother Stroke Social History Smoking/Tobacco Use Status: Former Tobacco Use Quit Date: 09/26/87 Smoking risk assessment performed?: Yes Alcohol Intake: former Drug use: Never Substance use type: does not use Caregiver/Support person: No Household members: spouse Pets and animals: No Do you think of yourself as: straight/heterosexual Duration: 45-60 minutes/day Frequency: 1-2 times per week Vanita/Spiritism: Scientology Special vanita needs: No Do you feel safe at home: Yes Do you feel safe in your relationship?: Yes Exam Narrative Exam Narrative: He is not in any obvious distress at the present time His vital signs are documented elsewhere Cummins catheter is in place and is draining clear urine with some solid debris in the dependent portion of the tubing. He did have a CT of the abdomen and pelvis in January of this year (with IV contrast, not a CT urogram). I reviewed those films on the PACS system. I do not see any sign of solid renal mass. There does appear to be bilateral renal cysts. At that time, there was no filling defect in the bladder. Results Last Vital Signs Temp 36.5 C 05/26/20 01:10 Pulse 96 H 05/26/20 01:10 Resp 17 05/26/20 01:10 BP 105/77 05/26/20 01:10 Pulse Ox 97 05/26/20 01:10 Labs Result diagrams: 05/26/20 06:10 Labs: Laboratory Results - last 24 hr 05/26/20 05/26/20 05/26/20 01:25 01:25 06:10 WBC 7.06 RBC 2.82 L Hgb 10.3 L 8.7 L Hct 31.3 L 26.2 L MCV 92.9 MCH 30.9 MCHC 33.2 RDW 13.7 Plt Count 100 L MPV 11.8 H Patient ABO/Rh A Positive Antibody Screen Negative
[2020-05-26 07:51] VITALS: BP 131/88; PULSE 73; RESP 18; TEMP 36; O2SAT 100
[2020-05-26] MEDS: Magnesium Oxide 400 MG TAB PO ×2 (08:04→19:30)
[2020-05-26] MEDS: Multivitamin TAB 2 TAB PO (08:05)
[2020-05-26] MEDS: levETIRAcetam 500 MG TAB PO ×2 (08:05→19:30)
[2020-05-26] MEDS: Tamsulosin 0.4 MG CAPCR PO (08:05)
[2020-05-26] MEDS: Apixaban 5 MG TAB PO ×2 (08:05→19:30)
[2020-05-26] MEDS: Thiamine 100 MG TAB PO (08:05)
[2020-05-26] MEDS: Atorvastatin 10 MG TAB PO (08:06)
[2020-05-26] MEDS: Pantoprazole 40 MG TABCR PO (08:06)
[2020-05-26] MEDS: Allopurinol 100 MG TAB 200 MG PO (08:06)
[2020-05-26] MEDS: Dexamethasone 1 MG TAB 3 MG PO (08:07)
[2020-05-26] MEDS: Insulin Aspart 300 UNITS/3 ML PEN SC ×2 (08:07→12:04)
--- NOTE | 2020-05-26 10:15 | IN_ITS ---
Date of service: 05/26/20 Time of Service: 10:15 PT Notes Visit Reasons: PSEUDOMONAS BACTEREMIA CELLULITUS Inpatient Physical Therapy Swing Bed 1 Initial Evaluation Date: 05/26/2020 Referring Doctor: Karsten Mckay MD PT Orders: PT CONSULT: Non-urgent Precautions: Fall. Standard. Activity as tolearated. Patient Profile/Admitting Diagnosis: Chad converts to swing bed level 1 as of 05/25/2020 and is being evaluated today for continued PT services. He is 70-year-old male with diagnosis of glioblastoma multiforme S/P partial frontal lobectomy with Optune device started just last week and on oral chemotherapy, acute kidney injury hospitalized on 05/12/2020 - 05/14/2020 at [facility], BPH, Essential hypertension, GERD, Gout, HLD, squamous cell CA of neck, previous tobacco abuse. He is diagnosed on admission with gram-negative bacteremia, cellulitis of right leg, history of DVT, and glioblastoma multiforme (diagnosed early part of this year) and has just received hi Optune device last week. A podiatry consult has been requested by Dr. Mckay today to address ensure that all issues are addressed. PMHX: Medical History Actinic keratitis (06/07/14) LEFT CONGREGATIONAL/FOREHEAD Age-related macular degeneration Allergic rhinitis BPH w urinary obs/LUTS (03/01/16) Cataract Cervical disc prolapse with radiculopathy diskectomy/fusion 2000 Diverticulosis of colon without diverticulitis Elevated PSA (03/01/16) Essential hypertension (09/30/13) Weight and alcohol dependent Family hx of prostate cancer Gastroesophageal reflux disease HH; LAP JOSH Glioblastoma Gout Hematuria, unspecified History of DVT (deep vein thrombosis) History of tobacco use Hyperlipidemia Neoplasm of unspecified nature of bone, soft tissue, and skin (08/07/15) Obesity Shoulder pain right; full thickness tear 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 THORPE; RIGHT SIDE OF NECK; LEFT SIDE OF FOREHEAD Surgical History Appendectomy Correction, Hammertoe RIGHT nasal surgery left nasal polypoid lesion removed Vasectomy Social History/Home Situation: Lives with in a private home. Daughter Clare, who works at this hospital, lives close by and is actively involved with his father's care. Had been receiving nursing and therapy services prior to hospital admission. Modified independent for all indoor ambulation using FWW. Equipment Owned/DME: Walker Subjective: Daughter Clare is present during this evaluation. She is concerned about how his dad's wound on the right foot has looked in comparison to when he first came in to the hospital. She is also worried about how the swelling in the left foot looked worsened due to ELLA wraps placement. Daughter indicated that HH PT has been working on strengthening and balance training with her dad. She states that he has fallen about 5 times in the past month or so. Objective: General Observation: Leans to L while seated on recliner chair. Optune device removed by patient two days ago. IV left cubital fossa. Cummins catheter in place. Wound on dorsum of R foot red with dark purplish edges and orange drainage. ELLA wraps might have moved up foot and caused increased pooling on L foot. New blister on the distal third of sural area most likely from rubbing against the recliner upholstery. Mental Status: Somewhat somnolent. Oriented to person and place. Pain: Unquantified discomfort in R foot ROM: Right Upper Extremity: Shoulder Flexion WFL. Shoulder abduction WFL. Elbow flexion WFL. Wrist flexion WFL. Functional opening and closing of hand WFL. Left Upper Extremity: Shoulder Flexion WFL. Shoulder abduction WFL. Elbow flexion WFL. Wrist flexion WFL. Functional opening and closing of hand WFL. Right Lower Extremity: Hip flexion WFL. Hip abduction WFL. Knee flexion WFL. Ankle dorsiflexion about 10 degrees beyond neutral. Ankle plantarflexion WFL. Left Lower Extremity: Hip flexion WFL. Hip abduction WFL. Knee flexion WFL. Ankle dorsiflexion about 10 degrees beyond neutral. Ankle plantarflexion WFL. Strength: Right Upper Extremity: Shoulder flexors 4-/5. Shoulder abductors 4-/5. Elbow flexors 4-/5. Elbow extensors 4-/5. Sewer strong. Left Upper Extremity: Shoulder flexors 4-/5. Shoulder abductors 4-/5. Elbow flexors 4-/5. Extensors 4-/5. Sewer strong. Right Lower Extremity: Hip flexors 3+/5. Hip abductors 3+/5. Knee flexors 4-/5. Knee extensors 3+/5. Ankle dorsiflexors 3-/5. Ankle plantarflexors 4/5. Left Lower Extremity:Hip flexors 4-/5. Hip abductors 4-/5. Knee flexors 4-/5. Knee extensors 4-/5. Ankle dorsiflexors 4-/5. Ankle plantarflexors 4/5. Sensation: Intact throughout B lower extremities Bed Mobility/Transfers: Sit to stand supervision, requires use of front wheeled walker for stability Stand to sit supervision, requires use of front wheeled walker for stability Bed to chair supervision, requires use of front wheeled walker for stability Chair to bed supervision, requires use of front wheeled walker for stability Gait: 250 feet using front wheeled walker with full weight bearing on bilateral lower extremities requiring standby assist with mild lateral trunk lean to the left to somehow relieve discomfort in the right foot. Mild shortness of breath observed at end of activity but that subsided with rest. Patient complained of being tired due to walking activity. Decreased dorsiflexion in both ankles. Balance: Static Sitting: Good Dynamic Sitting: Fair Static Standing: Fair Dynamic Standing: Fair 4-Stage Balance Test: Only able to maintain feet together for about 8 minutes. Unable to do so for the other three positions. High fall risk. Special Tests: Mobility Limitations Standardized Measure [facility] AM-PAC 6 clicks Basic Mobility Inpatient Short Form: Raw Score: 18 CMS score: 47% disability Assessment: Chad demonstrates functional mobility decline requiring the use of a front wheeled walker and assist of 1 caregiver for all mobility ADL performance, generalized weakness to both lower extremities with the right more affected than the left, impaired balance, difficulty with walking, and increased fall risk due to pre-existing glioblastoma multiforme along with family admitting diagnoses. Chad converts to swing bed level 1 as of 05/25/2020 and is being evaluated today for continued PT services. He is 70-year-old male with diagnosis of glioblastoma multiforme S/P partial frontal lobectomy with Optune device started just last week and on oral chemotherapy, acute kidney injury hospitalized on 05/12/2020 - 05/14/2020 at [facility], BPH, Essential hypertension, GERD, Gout, HLD, squamous cell CA of neck, previous tobacco abuse. He is diagnosed on admission with gram- negative bacteremia, cellulitis of right leg, history of DVT, and glioblastoma multiforme (diagnosed early part of this year) and has just received hi Optune device last week. A podiatry consult has been requested by Dr. Mckay today to address ensure that all issues are addressed. Impairment level findings: Lower extremity weakness with R>>L Poor balance Decreased activity tolerance/SOB Swelling to B legs Venous stasis ulcer to dorsum of R foot New blister on distal sural area on the R Impairments are contributing to the following functional limitations: 1. Dependent bed mobility skills 2. Increased dependence with transfers 3. Inability to safely ambulate without assistive device and physical assistance 4. Increase completion time for mobility ADL performance 5. Increased fall risk 6. Inability to negotiate steps alone safely Patient is assessed as a [id number] high complexity based on the following: History: 70-year-old male with impairment level findings, functional limitations, and past medical history as listed above Examination:Demonstrable impairment in strength, balance, and mobility level with underlying impairments and functional limitations as documented above Presentation: Evolving Decision Makin high complexity Goals: Goals X1 week 1. Supine-Sit independent 2. Sit-Supine independent 3. Sit-Stand independent 4. Stand-Sit independent 5. Bed-Chair independent 6. Chair-Bed independent 7. Gait 300 feet with walker, independent 8. Stairs 10, close supervision, with rail 9. Independent with home exercise program. 10. Will demonstrate maintenance of all 4 positions in the 4-stage balance test for 10 seconds each in order to reduce fall risk DISCHARGE RECOMMENDATIONS: Patient will benefit from resumption of home health PT services in order to progress mobility level using FWW, assess home safety, identify additional equipment needs, and establish a functional maintenance program that will increase ability of patient to remain at home. TREATMENT CODE/TIME: 67875 x 30 minutes, 81115 x 15 minutes beginning at 10:15 AM. Thank you for the opportunity to participate in the care of this patient. Chinyere Holbrook PT, DPT, CLT [facility] [place], [place]
[2020-05-26] MEDS: CIPROFLOXACIN 400 MG/200 ML BAG 200 MG IVPB (10:50)
[2020-05-26] MEDS: Torsemide 20 MG TAB PO (12:04)
--- NOTE | 2020-05-26 12:32 | PCPN_ITS ---
Date of service: 05/26/20 Time of Service: 10:32 Assessment and Plan Assessment and plan (1) Gram-negative bacteremia: Status: Acute (2) Cellulitis of foot, right: Status: Acute (3) Glioblastoma: Status: Acute (4) Palliative care patient: Status: Acute Assessment and plan: We talked for some time. All people present explained what they understood about Chad's problem and prognosis. His Tomasa was very clear that she understands that he has less than 3 months to live. We also discussed hospice care. He felt that this would be good and that they would do this once he was home. I will order a hospice consult He will continue in the hospital on IV antibiotics until he completes a 2-week course. He is presently on swing bed. He is a vet and is entitled to many VA services these are presently being tapped into. Daughter Clare is very concerned that his foot cellulitis may not be under control. I assured her that even though her dad was on swing bed that they were still regularly checking his wound. Dr Lackey will be seeing him today We tried to complete the CO LST form with Chad. Between the brain tumor, surgery, chemotherapy and present medication he was not able to comprehend what we were talking about. He had told me numerous times that that he was to make his decisions for him if he could not. At see his first DPOA, his Tomasa, and myself completed the CO LST form. He is a DO NOT RESUSCITATE, he still would like antibiotics and IV fluids. He would like a trial of a feeding tube but understands that as things progress he may choose differently. We did speak at length of what hospice means and how he would stay at home and contact the hospice nurse if he had concerns and questions. He was glad that there were people but could help them. Tomasa and Clare both understood about his prognosis, and that we were looking more for comfort care rather than curative or palliative care. He wants to have an infusion Jun 09. Hospice would mostlikely start after this date I have spent more than 50% of time in counseling with this patient. Family asked me to look at the medication list and take out all nonessential medications. I will do this today. I will also change his CODE STATUS. Discussed these changes with his Hospitalist team Subjective Subjective Interval history since last seen: I was asked by Chad's DPOA and daughter, Clare, to meet with Chad, his Clare Randolph and by phone Rani to discuss Chad's prognosis. At her last meeting Chad was feeling good he would like 20 more years. Unfortunately when he spoke with his oncologist a couple of days ago she did not feel that they had anything more to offer him. He is going to have 1 more infusion in May, but recommended that they stop chemotherapy. She had given a prognosis of about 3 months to live. Clare wanted to be certain that her mother Tomasa understood what this meant and also to explain it again to Chad. Exam Narrative Exam Narrative: We are meeting in the [facility] due to Covid. Chad is sitting in a wheelchair. At times he closes his eyes. He has some urinary urgency but does have a catheter in place. His foot is bandaged. At times he seemed to grasp what we were saying and at other times he did not. Objective Last Vital Signs Temp 96.8 F L 05/26/20 07:51 Pulse 73 05/26/20 07:51 Resp 18 05/26/20 07:51 BP 131/88 05/26/20 07:51 Pulse Ox 100 05/26/20 07:51 Laboratory Results - last 24 hr 05/26/20 05/26/20 05/26/20 01:25 01:25 06:10 WBC 7.06 RBC 2.82 L Hgb 10.3 L 8.7 L Hct 31.3 L 26.2 L MCV 92.9 MCH 30.9 MCHC 33.2 RDW 13.7 Plt Count 100 L MPV 11.8 H Patient ABO/Rh A Positive Antibody Screen Negative
--- NOTE | 2020-05-26 13:41 | HPE_ITS ---
Date of service: 05/26/20 Time of Service: 13:41 History of Present Illness History of Present Illness Chief Complaint: Wound right foot with cellulitis and sepsis Narrative: 70-year-old male who was admitted through the emergency room with signs of cellulitis and sepsis emanating from his right foot. He apparently had a small wound on the dorsum of the foot which was present for well over a week which subsequently showed signs of worsening. Chad was brought to the ER via EMS on the request of his family who noted significant d eterioration in his cognition. I been asked to evaluate and manage the right foot wound. [facility] Medical History Actinic keratitis (06/07/14) LEFT DRUZE/FOREHEAD Age-related macular degeneration Allergic rhinitis BPH w urinary obs/LUTS (03/01/16) Cataract Cervical disc prolapse with radiculopathy diskectomy/fusion 2000 Diverticulosis of colon without diverticulitis Elevated PSA (03/01/16) Essential hypertension (09/30/13) Weight and alcohol dependent Family hx of prostate cancer Gastroesophageal reflux disease HH; LAP JOSH Glioblastoma Gout Gross hematuria Hematuria, unspecified History of DVT (deep vein thrombosis) History of tobacco use Hyperlipidemia Neoplasm of unspecified nature of bone, soft tissue, and skin (08/07/15) Obesity Shoulder pain right; full thickness tear 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 THORPE; RIGHT SIDE OF NECK; LEFT SIDE OF FOREHEAD Surgical History Appendectomy Correction, Hammertoe RIGHT nasal surgery left nasal polypoid lesion removed Vasectomy Family History Mother Stroke Father Heart disease Sister No problems noted. Sister No problems noted. Sister No problems noted. Sister No problems noted. Daughter No problems noted. Daughter No problems noted. Maternal Grandfather Edema Heart disease Paternal Grandfather , ACCIDENTAL at age 49. No problems noted. Paternal Grandmother No problems noted. Maternal Grandmother Stroke Social History Smoking/Tobacco Use Status: Former Tobacco Use Quit Date: 09/26/87 Smoking risk assessment performed?: Yes Alcohol Intake: former Drug use: Never Substance use type: does not use Caregiver/Support person: No Household members: spouse Pets and animals: No Do you think of yourself as: straight/heterosexual Duration: 45-60 minutes/day Frequency: 1-2 times per week Vanita/Mormon: Oriental Orthodox Special vanita needs: No Do you feel safe at home: Yes Do you feel safe in your relationship?: Yes Meds Home Medications and Allergies Home Medications Medication Instructions Recorded Confirmed Type multivitamin [Daily Value] 2 ea PO DAILY 11/04/12 05/25/20 History allopurinol 100 mg tablet 200 mg PO DAILY #180 tab-cap 08/11/19 05/25/20 Rx atorvastatin [Lipitor] 10 mg PO DAILY 04/24/20 05/25/20 History ondansetron 4 mg PO Q8H PRN 04/24/20 05/25/20 History pantoprazole 40 mg PO DAILY 04/24/20 05/25/20 History sennosides [senna] 17.2 mg PO QHS 04/24/20 05/25/20 History thiamine HCl (vitamin B1) 100 mg PO DAILY 04/24/20 05/25/20 History apixaban 5 mg tablet 5 mg PO BID 05/09/20 05/25/20 History metformin 500 mg tablet See Rx Instructions .ROUTE .COMPLEX 05/09/20 05/25/20 History acetaminophen 650 mg PO Q6H PRN 05/12/20 05/25/20 History dexamethasone 3 mg PO DAILY 05/12/20 05/25/20 History levetiracetam 500 mg PO BID 05/12/20 05/25/20 History melatonin 2.5 mg PO HS 05/12/20 05/25/20 History pyridoxine (vitamin B6) 50 mg PO DAILY 05/12/20 05/25/20 History temozolomide See Rx Instructions .ROUTE .COMPLEX 05/12/20 05/25/20 History tamsulosin 0.4 mg capsule 0.4 mg PO DAILY #90 cap 05/25/20 05/25/20 Rx Allergies Allergy/AdvReac Type Severity Reaction Status Date / Time No Known Allergies Allergy Verified 05/21/20 11:21 Exam Narrative Exam Narrative: Chad is seen in his room where he transferred from his chair to his bed. Once he was in his bed he became somewhat sleepy but did respond to pain. Both lower extremities are evaluated. He has +1 edema in his left lower extremity without skin breakdown, calf is soft to palpation no suggestion of DVT. Right lower extremity has a wound overlying the dorsum of the foot measuring 10 cm from medial to lateral and 6-1/2 cm from proximal to distal. The wound is dark with poor capillary return. A small superficial ulcer is noted towards the distal aspect of this wound with a pale base. There is no undermining appreciated no tunneling,. Superficial sloughing of the skin is noted throughout the dorsal wound with serous drainage observed collecting proximal laterally. The wound has been previously marked with a sharpie and the cellulitis appears to be miguel angel within the hop[place]. Is good capillary return to the digits and with a hand-held Doppler the dorsalis pedis and posterior tibial arteries are patent. There is +2 edema noted but his calf is compressible and no cords were palpable. A small vesicle is noted in the posterior area to the posterior medial aspect of the right calf consistent with a venous stasis blister. There is no erythema or signs of infection. He has a couple of superficial wounds at the level of his right tibial tuberosity and down on the anterior ludwig midway. These appear free of infection. He does have a positive Pseudomonas blood culture for which he is receiving IV Cipro. Lab work was reviewed. Impressions: Grossly infected right dorsal foot wound with cellulitis Suspect partial thickness necrosis of skin due to infection Venous stasis wound posterior right calf Venous stasis disease with edema left lower extremity Plan: With a #10 scalpel and forceps the wound was debrided partial thickness removing all necrotic, exfoliating tissue from the right foot. I am recommending Silvadene to the open wounds, Vaseline impregnated gauze, Unna boot compression dressing being changed daily. Unna boot dressing to the left lower extremity to control edema changing every 5 to 7 days. I will discussed the case with the hospitalist, I appreciate the consultation. I will continue to follow. Results Labs Result diagrams: 05/26/20 06:10 Labs: Laboratory Results - last 24 hr 05/26/20 05/26/20 05/26/20 01:25 01:25 06:10 WBC 7.06 RBC 2.82 L Hgb 10.3 L 8.7 L Hct 31.3 L 26.2 L MCV 92.9 MCH 30.9 MCHC 33.2 RDW 13.7 Plt Count 100 L MPV 11.8 H Patient ABO/Rh A Positive Antibody Screen Negative Last Vital Signs Temp 36.0 C L 05/26/20 07:51 Pulse 73 05/26/20 07:51 Resp 18 05/26/20 07:51 BP 131/88 05/26/20 07:51 Pulse Ox 100 05/26/20 07:51 COVID-19 Screening Have you,or household,traveled outside [place] in last 14 days?: Yes
[2020-05-26] MEDS: Silver sulfaDIAZINE 1% 25 GM TUBE TP (13:50)
--- NOTE | 2020-05-26 14:54 | PT.INNT ---
Date of service: 05/26/20 Time of Service: 14:54 PT Notes Visit Reasons: PSEUDOMONAS BACTEREMIA CELLULITUS 05/26/2020 Afternoon PT session, hold x1, per nurse, as his foot wounds were not dressed. Hold x1 as patient was fatigued and unable to follow directions and participate in PT. Will attempt to resume PT services tomorrow morning.
--- NOTE | 2020-05-26 15:33 | CHAPLAIN ---
I spoke with Chad's daughter, Clare, after their family meeting with Dr. Jasmine this morning. Chad, Clare, Chad's Tomasa there, and Chad's other daughter, Rani, was on the phone. Clare was concerned that Chad and Tomasa understand the recent 3 months prognosis that Chad's oncologist recently gave Chad. They also talked about code status and hospice care. Clare said she is Chad's DPOA would make decisions for him if he can't. She said talking about code status and the COLST form was a bit overwhelming for Chad, and he asked to think about it. Clare is the one visit that Chad is allowed right not, and she is also keep a close eye on her mom, who has health issues. Yesterday she said she did take some time to celebrate he son's 21st birthday. Clare is an [employer] employee. I will continue to visit Chad and Clare. Tomasa is a member of the [employer] and Clare asked me to contact Rev. Shree Dumas there and request he visit Tomasa at home. I did that and Shree said he would.
--- NOTE | 2020-05-26 16:01 | W.PM.PROGNOT ---
Date of Service Date of service: 05/26/20 Time of Service: 16:01 Assessment and Plan Assessment and plan (1) Venous stasis of both lower extremities: Status: Acute Assessment and plan: Given torsemide 20mg po x1. Elevate BLEs above heart level frequently. Unna boot placed by Dr Lackey. (2) Gram-negative bacteremia: Status: Acute Assessment and plan: Pseudomonas bacteremia. Will convert antbiotic coverage back to Zosyn in event the ecchymotic area of the foot is necrotic; broader coverage. (3) Cellulitis of foot, right: Status: Acute Assessment and plan: Podiatry, Dr Lackey has evaluated; mild debridement performed. Unasyn restarted for broader coverage. (4) Palliative care patient: Status: Acute Assessment and plan: Dr Jasmine had a family meeting with patient, and daughter this AM. Pt is now a DNR/DNI (5) Glioblastoma: Status: Acute Assessment and plan: Conts to use Optune device Dr Jasmine plans to discuss further treatments with his oncologist. He is scheduled to restart Temador chemotherapeutic agent this Friday. Given is prognosis and short life expectancy, the likely side effects may not warrant it's use in order to allow as much quality as possible in his last days. (6) Complication of [place] catheter: Status: Acute Assessment and plan: Pt pulled dover catheter out with balloon inflated last PM Reinserted. Bleeding noted initially but has stopped. Dr Pineda evaluated. Tamsulosin initiated. Will cont to maintain dover catheter. Qualifiers: Encounter type: initial encounter Qualified Code(s): T83.9XXA - Unspecified complication of genitourinary prosthetic device, implant and graft, initial encounter Subjective Subjective Patient reports: no new complaints; denies nausea, vomiting, shortness of breath and afebrile Interval history since last seen: Ongoing serous drainage from blistered area on dorsum of R foot and new bullous lesion on posterior R ankle. Exam Const General: cooperative and no acute distress Nutritional Appearance: average body habitus Orientation: oriented to person and oriented to place Resp Effort & Inspection: normal respiratory effort Auscultation: clear to auscultation bilaterally Cardio Rate: regular rate Rhythm: regular rhythm Heart Sounds: S1 normal and S2 normal GI Palpation: soft and nontender Auscultation: normal bowel sounds Skin Full body images: 1. Ecchymotic area with large blister. Mild erythema of dorsum of foot. Extrem General: edema (2-3 + edema of R foot and ankle. L foot and ankle with ELLA wrap) Objective Last Vital Signs Temp 36.0 C L 05/26/20 07:51 Pulse 73 05/26/20 07:51 Resp 18 05/26/20 07:51 BP 131/88 05/26/20 07:51 Pulse Ox 100 05/26/20 07:51 Laboratory Results - last 24 hr 05/26/20 05/26/20 05/26/20 01:25 01:25 06:10 WBC 7.06 RBC 2.82 L Hgb 10.3 L 8.7 L Hct 31.3 L 26.2 L MCV 92.9 MCH 30.9 MCHC 33.2 RDW 13.7 Plt Count 100 L MPV 11.8 H Patient ABO/Rh A Positive Antibody Screen Negative
[2020-05-26] MEDS: PIPERACILLIN/TAZO 3.375 GM in Normal Saline 50 ML IVPB ×2 (16:32→21:07)
[2020-05-26 16:38] LABS: C-Reactive Protein 6.44 mg/dL (0.0-0.3)
[2020-05-26 16:52] LABS: ESR 114 mm/hr (1-20)
[2020-05-26] MEDS: LORazepam 0.5 MG TAB PO (18:17)
[2020-05-26 18:51] VITALS: BP 108/75; PULSE 63; RESP 16; TEMP 36.7; O2SAT 98
[2020-05-26] MEDS: HYDROcodone 5/Acetaminophen 325 TAB PO (19:39)
[2020-05-26] MEDS: Senna TAB 2 TAB PO (21:58)
[2020-05-26] MEDS: Melatonin 3 MG TAB PO (21:59)
[2020-05-26 23:35] VITALS: BP 107/72; PULSE 69; RESP 16; TEMP 36.6; O2SAT 96
[2020-05-27] MEDS: PIPERACILLIN/TAZO 3.375 GM in Normal Saline 50 ML IVPB ×4 (04:47→21:30)
[2020-05-27] MEDS: Normal Saline 1,000 ML 125 ML IV ×3 (05:43→22:47)
[2020-05-27 07:37] VITALS: BP 120/69; PULSE 61; RESP 18; TEMP 36.8; O2SAT 97
[2020-05-27] MEDS: Magnesium Oxide 400 MG TAB PO ×2 (08:31→19:45)
[2020-05-27] MEDS: levETIRAcetam 500 MG TAB PO ×2 (08:31→19:45)
[2020-05-27] MEDS: Apixaban 5 MG TAB PO ×2 (08:31→19:45)
[2020-05-27] MEDS: Pantoprazole 40 MG TABCR PO (08:32)
[2020-05-27] MEDS: Tamsulosin 0.4 MG CAPCR PO (08:32)
[2020-05-27] MEDS: Multivitamin TAB 2 TAB PO (08:32)
[2020-05-27] MEDS: Dexamethasone 1 MG TAB 3 MG PO (08:32)
[2020-05-27] MEDS: Allopurinol 100 MG TAB 200 MG PO (08:32)
[2020-05-27] MEDS: Silver sulfaDIAZINE 1% 25 GM TUBE TP (08:33)
[2020-05-27] MEDS: Thiamine 100 MG TAB PO (08:34)
[2020-05-27 09:02] LABS: ALT 16 U/L (16-63); AST 11 U/L (15-37); Albumin 1.7 g/dL (3.4-5.0); Alkaline Phosphatase 51 U/L (46-116); Anion Gap 7.4 mmol/L (3-11); BUN 23 mg/dL (7-18); Bilirubin, Total 0.4 mg/dL (0.2-1.0); CO2 24.6 mmol/L (21.0-32.0); CREATININE 1.27 mg/dL (0.70-1.30); Calcium 7.5 mg/dL (8.5-10.1); Chloride 114 mmol/L (98-107); Estimated GFR 56.23 (mL/min/1.73m2); Glucose 142 mg/dL (74-106); Potassium 3.3 mmol/L (3.5-5.1); Sodium 146 mmol/L (136-145); Total Protein 4.5 g/dL (6.4-8.2)
[2020-05-27] MEDS: Potassium Chloride 20 MEQ TABCR 40 MEQ PO (10:09)
[2020-05-27 12:02] LABS: Bilirubin Negative (Negative); Blood Large (Negative); Clarity Clear (Clear); Glucose >=1000 mg/dL (Negative); Ketones Negative (Negative); Leukocyte Esterase Negative (Negative); Nitrite Negative (Negative)
[2020-05-27 12:17] LABS: Epithelial Cells Negative HPF (Negative); RBC >50 HPF (0-2); WBC 20-50 HPF (0-5)
[2020-05-27 12:18] LABS: Bacteria Few HPF (Negative); C & S Indicated? Yes; Casts 0-2 Coarse Granular LPF (Negative); Crystals Negative HPF (Negative); Mucus Negative (Negative)
--- NOTE | 2020-05-27 12:34 | PT.INTREAT ---
PT Notes Visit Reasons: PSEUDOMONAS BACTEREMIA CELLULITUS Inpatient Physical Therapy Treatment Note [facility] Date: 05/27/20 SUBJECTIVE: Chad states that he is shaky today, but is willing to go for a walk and exercise a little. OBJECTIVE: [] BED MOBILITY/TRANSFERS Sit-stand: SBA Stand-sit: S GAIT Assistive Device: FWW Weight bearing: FWB Assist: SBA Distance: 200' THEREX: global LE strength and stabilization while seated in chair. See flowhseet for details. ASSESSMENT: tolerated session well. Noted greater weakness in right LE compared to left PLAN: continue with POC, will look to add in some balance tomorrow. TREATMENT CODE/TIME: 25 min. [id number], [id number]
[2020-05-27 15:47] VITALS: BP 147/85; PULSE 77; RESP 19; TEMP 37; O2SAT 97
[2020-05-27] MEDS: LORazepam 0.5 MG TAB PO ×2 (18:35→22:25)
[2020-05-27] MEDS: Senna TAB 2 TAB PO (21:30)
[2020-05-27] MEDS: Melatonin 3 MG TAB PO (21:31)
[2020-05-27] MEDS: HYDROcodone 5/Acetaminophen 325 TAB PO (22:46)
--- NOTE | 2020-05-28 | DI.CT_ITS ---
EXAM: CT HEAD CERVICAL SPINE WO CLINICAL HISTORY: Fall, hit head. TECHNIQUE: Imaging Protocol: Axial computed tomography images with coronal and sagittal reformatted images were created and reviewed COMPARISON: CT CT HEAD ORBITS WO from 04/24/2020 FINDINGS: CT Head: Ventricles and Extra axial spaces: Normal in size and morphology for the patient's age. Hemorrhage: None. Cerebral parenchyma: There are areas of decreased attenuation in the white matter likely reflecting c hronic small vessel ischemic disease. There is an unchanged area of encephalomalacia involving the r ight frontal lobe. The hypodense and calcified region in the right frontal lobe appears stable. No acute territorial infarct. Midline shift: None. Brainstem/Cerebellum: Normal. Calvarium: Stable findings of a right frontal craniotomy. Visualized Paranasal sinuses/Mastoids: Clear. Soft Tissues: Unremarkable. CT Cervical Spine: Bones: No acute fracture or subluxation. Degenerative changes are seen in the cervical spine. There is anterior fusion at C6-C7. Soft Tissues: Unremarkable. Lung Apices: Clear. IMPRESSION: 1. No acute intracranial process. 2. No acute fracture or subluxation in the cervical spine. RADIATION DOSE DELIVERED: 1,682.58mGy.cm Total DLP DATA REPOSITORY: All CT scans at this facility are submitted to the National Radiology Data Registry (NRDR) Dose Index Registry (DIR) with the [employer] (ACR). RADIATION OPTIMIZATION: All CT scans at this facility use at least one of these dose optimization te chniques: automated exposure control; mA and/or kV adjustment per patient size (includes targeted exa ms where dose is matched to clinical indication); or iterative reconstruction.
[2020-05-28 00:11] VITALS: BP 130/84; PULSE 85; RESP 17; TEMP 37.2; O2SAT 95
[2020-05-28] MEDS: PIPERACILLIN/TAZO 3.375 GM in Normal Saline 50 ML IVPB ×4 (03:21→22:42)
[2020-05-28] MEDS: Normal Saline 1,000 ML 125 ML IV (05:51)
[2020-05-28 07:43] LABS: BUN 18 mg/dL (7-18); CREATININE 1.21 mg/dL (0.70-1.30); Calcium 7.6 mg/dL (8.5-10.1); Chloride 113 mmol/L (98-107); Estimated GFR 59.46 (mL/min/1.73m2); Glucose 117 mg/dL (74-106); Sodium 146 mmol/L (136-145)
[2020-05-28] MEDS: Silver sulfaDIAZINE 1% 25 GM TUBE TP (08:36)
[2020-05-28] MEDS: Pantoprazole 40 MG TABCR PO (08:37)
[2020-05-28] MEDS: Multivitamin TAB 2 TAB PO (08:37)
[2020-05-28] MEDS: Tamsulosin 0.4 MG CAPCR PO (08:37)
[2020-05-28] MEDS: Apixaban 5 MG TAB PO ×2 (08:37→20:27)
[2020-05-28] MEDS: Magnesium Oxide 400 MG TAB PO ×2 (08:37→20:27)
[2020-05-28] MEDS: levETIRAcetam 500 MG TAB PO ×2 (08:37→20:27)
[2020-05-28] MEDS: Dexamethasone 1 MG TAB 3 MG PO (08:37)
[2020-05-28 08:38] VITALS: BP 138/84; PULSE 65; RESP 18; TEMP 36.7; O2SAT 99
[2020-05-28] MEDS: Allopurinol 100 MG TAB 200 MG PO (08:38)
[2020-05-28] MEDS: HYDROcodone 5/Acetaminophen 325 TAB PO (08:38)
[2020-05-28] MEDS: Thiamine 100 MG TAB PO (08:38)
[2020-05-28] MEDS: Potassium Chloride 20 MEQ TABCR 40 MEQ PO ×2 (10:21→20:27)
--- NOTE | 2020-05-28 12:53 | PTTR_ITS ---
PT Notes Visit Reasons: PSEUDOMONAS BACTEREMIA CELLULITUS Inpatient Physical Therapy Treatment Note [facility] Date: 05/28/2020 SUBJECTIVE:Chad states that he is doing ok. He offers no complaints. Daughter reported that he pulled out hi IV earlier due to aggitation. OBJECTIVE: [] BED MOBILITY/TRANSFERS Sit-stand: SBA Stand-sit: S GAIT Assistive Device: FWW Weight bearing:FWB Assist:SBA Distance: 260' THEREX: global LE strengthening while seated in recliner. Performed seated b alance ex. See flowsheet for details. ASSESSMENT: increased his distance with ambulation. Too tired to incorporate balance ex today. He was able to follow directions today but a little slower than yesterday, and his decision making was a bit slower. PLAN: continue to progress with PT POC, incorporating balance ex at next session as long as he is feeling up to it. Maybe prior to ambulation? TREATMENT CODE/TIME: 25 min. [id number], [id number]
[2020-05-28 15:10] VITALS: BP 148/94; PULSE 69; RESP 18; TEMP 36.6; O2SAT 100
[2020-05-28 15:20] VITALS: BP 138/84; PULSE 65; RESP 18; TEMP 36.7; O2SAT 99
--- NOTE | 2020-05-28 16:32 | DI.VRAD_ITS ---
PROCEDURE INFORMATION: Exam: CT Head Without Contrast Exam date and time: 05/28/2020 4:09 PM Age: 70 years old Clinical indication: Injury or trauma; Fall; Prior surgery; Surgery date: 1-6 months; Surgery type: Lobotomy, current chemo for CA TECHNIQUE: Imaging protocol: Computed tomography of the head without contrast. COMPARISON: CT HEAD ORBITS WO 04/24/2020 5:44 PM FINDINGS: Brain: See Bones/joints finding. Cerebral ventricles: No ventriculomegaly. Bones/joints: Previously seen right frontal craniotomy changes again noted. Underlying encephalomalacia at the right frontal lobe level with calcifications involving the convexity gyri medially and a fluid attenuation focus in the region appear unchanged. Mild cortical volume loss and coalescent areas of decreased attenuation in the deep periventricular white matter are again noted, presumed degree of small vessel ischemic change most noted at the left frontal level, stable. Paranasal sinuses: Visualized sinuses are unremarkable. No fluid levels. Mastoid air cells: Visualized mastoid air cells are well aerated. Soft tissues: Unremarkable. IMPRESSION: Nonacute postsurgical and senescent changes. No evidence for acute intracranial abnormality. PROCEDURE INFORMATION: Exam: CT Cervical Spine Without Contrast Exam date and time: 05/28/2020 4:09 PM Age: 70 years old Clinical indication: Injury or trauma; Fall; Prior surgery; Surgery date: 1-6 months; Surgery type: Lobotomy, current chemo for CA TECHNIQUE: Imaging protocol: Computed tomography images of the cervical spine without contrast. COMPARISON: CT HEAD ORBITS WO 04/24/2020 5:44 PM FINDINGS: Bones/joints: Cervical spondylosis with mild lower cervical stenosis. This is best seen C5-C6 and C6-C7. There appears to be post anterior fusion change at C6-C7. Alignment is otherwise anatomic. No evidence for fracture. Discs/Spinal canal/Neural foramina: See Bones/joints finding. Soft tissues: Unremarkable. Lungs: Lung apices are normal. IMPRESSION: Spondylosis with lower cervical stenosis. No evidence for fracture. Dictated and Authenticated by: Toya Noble MD. Ordering:LESLIE Mcdonald MD
[2020-05-28] MEDS: LORazepam 0.5 MG TAB PO (18:00)
[2020-05-28 20:10] VITALS: BP 132/86; PULSE 64; RESP 18; TEMP 36.8; O2SAT 95
[2020-05-28] MEDS: Melatonin 3 MG TAB PO (22:42)
[2020-05-28] MEDS: Senna TAB 2 TAB PO (22:42)
[2020-05-28 22:45] VITALS: BP 138/86; PULSE 68; RESP 18; TEMP 36.7; O2SAT 98
[2020-05-29 00:05] VITALS: BP 136/82; PULSE 62; RESP 18; TEMP 37; O2SAT 98
[2020-05-29] MEDS: PIPERACILLIN/TAZO 3.375 GM in Normal Saline 50 ML IVPB ×4 (03:50→21:33)
[2020-05-29] MEDS: HYDROcodone 5/Acetaminophen 325 TAB PO (03:51)
[2020-05-29] MEDS: Normal Saline Flush 10 ML SYR IVP ×3 (03:52→16:10)
[2020-05-29 04:25] VITALS: BP 146/93; PULSE 65; RESP 17; TEMP 36.5; O2SAT 99
[2020-05-29 06:29] VITALS: BP 144/88; PULSE 63; RESP 18; TEMP 36.1; O2SAT 97
[2020-05-29 07:28] LABS: Potassium 3.8 mmol/L (3.5-5.1)
[2020-05-29 07:52] VITALS: BP 128/84; PULSE 64; RESP 17; TEMP 36.6; O2SAT 99
--- NOTE | 2020-05-29 08:00 | PGE_ITS ---
Date of Service Date of service: 05/29/20 Time of Service: 08:00 Subjective Subjective Patient reports: no new complaints and feels better Interval history since last seen: Chad is seen at bedside. He is resting comfortably. He has no new complaints related to his lower extremities. He does indicate that he has much less discomfort. Exam Narrative Exam Narrative: Chad is seen at bedside where he is resting comfortably. Both lower extremities are evaluated. Dressings are removed from his right lower extremity, Unna boot remains intact on his left lower extremity and appears clean and in good condition. Right lower extremity has a wound overlying the dorsum of the foot measuring 10 cm from medial to lateral and 6-1/2 cm from proximal to distal. The wound is clean with partial thickness erosion appreciated and serous drainage moderate noted. A small superficial ulcer is noted towards the distal aspect of this wound with a pale base which appears clean. There is no undermining appreciated no tunneling,. The cellulitis has resolved. There is good capillary return to the digits although +1 edema or is appreciated within the digits. there is +1 edema noted over the dorsum of the foot, his calf is compressible and no DVT or cords were palpable. The venous stasis wound located on the posterior medial aspect of his right leg shows partial-thickness breakdown but no active signs of infection. A small wound is also noted more proximally to that partial- thickness also free of infection. He does have a positive Pseudomonas blood culture for which he is receiving IV antibiotics, Zosyn. lab work was reviewed. Impressions: Grossly infected right dorsal foot wound with cellulitis Suspect partial thickness necrosis of skin due to infection Venous stasis wound posterior right calf Venous stasis disease with edema left lower extremity Plan: The overall clinical picture of the wound on his right lower extremity is favorable. There is no active sign of infection at this time and the wounds appear to be responding to clinical care. I recommended we begin Unna boot dressings to the right lower extremity for control of peripheral edema which will also help to reduce his serous drainage from the wounds. Because of his drainage he will likely need to have the Unna boot dressings on his right lower extremity changed on a 48 to 72-hour regimen initially until discharge diminishes at which time hopefully it can be changed every 5 to 7 days. I encouraged keeping the right lower extremity elevated to help reduce the edema within his digits. I will continue to follow. Objective Last Vital Signs Temp 36.6 C 05/29/20 07:52 Pulse 64 05/29/20 07:52 Resp 17 05/29/20 07:52 BP 128/84 05/29/20 07:52 Pulse Ox 99 05/29/20 07:52 Laboratory Results - last 24 hr 05/29/20 06:05 Potassium 3.8 D
--- NOTE | 2020-05-29 09:06 | OTIE_ITS ---
Occupational Therapy Notes Inpatient Occupational Therapy Evaluation Date: 05/29/20 Referring Doctor: Karsten Mckay MD OT Orders: Non-URgent Precautions: Fall, Standard, DNR/DNI PATIENT PROFILE/ADMITTING DIAGNOSIS: Pt is a 70 year old male who was admitted to [facility] with the dx of glioblastoma multiforme S/P partial frontal lobectomy with Optune device started just last week and on oral chemotherapy, acute kidney injury hospitalized on 05/12/2020 - 05/14/2020 at [facility], BPH, Essential hypertension, GERD, Gout, HLD, squamous cell CA of neck, previous tobacco abuse. He is dx at ED with gram-negative bacteremia, cellulitis of right leg, history of DVT, and glioblastoma multiform. Past Medical History: Medical History Actinic keratitis (06/07/14) LEFT [facility] Age-related macular degeneration Allergic rhinitis BPH w urinary obs/LUTS (03/01/16) Cataract Cervical disc prolapse with radiculopathy diskectomy/fusion 2000 Diverticulosis of colon without diverticulitis Elevated PSA (03/01/16) Essential hypertension (09/30/13) Weight and alcohol dependent Family hx of prostate cancer Gastroesophageal reflux disease HH; [facility] Glioblastoma Gout Hematuria, unspecified History of DVT (deep vein thrombosis) History of tobacco use Hyperlipidemia Neoplasm of unspecified nature of bone, soft tissue, and skin (08/07/15) Obesity Shoulder pain right; full thickness tear 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 THORPE; RIGHT SIDE OF NECK; LEFT SIDE OF FOREHEAD Surgical History Appendectomy Correction, Hammertoe RIGHT nasal surgery left nasal polypoid lesion removed Vasectomy Social History/Home Situation: Lives with in a private home. Daughter,who works at this hospital, lives close by. He has HH PT who comes into his home a couple days per week. He states that his has to (A) him with his ADLS and that he is not (I) at his baseline level of function. Equipment owned/DME: FWW, grab bars, commode, shower bench, raised toilet seat. SUBJECTIVE: Pt was lying in bed when OT arrived, he was agreeable to OT session and notes that he is fatigued today limiting him. OBJECTIVE: General Observation: Pleasant and able to answer questions appropriately. Mental Status: A&Ox2 Pain: no c/o pain ROM: RUE AROM WFL L UE AROM WFL STRENGTH: RUE 3+5 throughout globally LUE 4-/5 throughout globally FUNCTIONAL MOBILITY/ADLS: Pt denies performance of ADLs at todays session due to fatigue, however he is willing to perform AROM to demonstrate that he is able to perform his ADLS but requires (A) from his . He has (B) LE edema which is painful. He notes that his (A) with his bathing, dressing and with fine/gross motor activities when he becomes too tired. BALANCE: Static sitting Normal Dynamic Sitting Normal SPECIAL TESTS: Daily Activity Limitations Standardized Measure [facility] AM -PAC ?6 clicks? Daily Activity Inpatient Short Form: Raw score: 18 Standardized score: 38.66 CMS score: 46.65% INFORMED CONSENT/EDUCATION: Pt instructed in purpose of OT Consult and plan of care. ASSESSMENT: Patient is a 70-year-old male referred to occupational therapy services with diagnosis of glioblastoma multiform S/P partial frontal lobectomy with Optune device started just last week and on oral chemotherapy, acute kidney injury hospitalized on 05/12/2020 - 05/14/2020 at [facility], BPH, Essential hypertension, GERD, Gout, HLD, squamous cell CA of neck, previous tobacco abuse. He is dx at ED with gram-negative bacteremia, cellulitis of right leg, history of DVT, and glioblastoma multiform. Patient presents with clinical signs and symptoms consistent with dx, as demonstrated by the following impairment level findings/functional limitations: Impairment in ADLs/IADL and leisure activities, decreased standing ADLs, decreased functional activity tolerance, increased fatigue, pain in (B) UE/LE. AMPAC score 18 Patient is assessed as a Moderate 67923 complexity based on the following: History: see above Examination: see functional limitations as noted above Presentation: evolving Decision Making: AMPAC Score 18, CMS 46.65% GOALS Goals x1 week 1. Grooming- Sitting on side of the bed, (I) with brushing teeth 2. Dressing- sitting on side of bed pt is mod (I) with don and doffing (B) socks, min (A) with [facility] and doing [facility] gown 3. Bathing- sitting on side of the bed with max (A) set up/clean up (I) with UE, mod (A) LE 4. Toileting- on commode min (A) 5. Eating- (I) PLAN OF CARE/TREATMENT PLAN: 1x/day, 5 days/ week x 1week Initiate Occupational Therapy Services for bathing, dressing, grooming, toileting, eating, transfer training. DISCHARGE RECOMMENDATIONS Based on pts current level of function, OT recommends that pt return home with services. TREATMENT TIME/MINUTES/CODES 53401, 15 minutes (07:35) ESTEFANI Santana/[facility]
[2020-05-29] MEDS: Pantoprazole 40 MG TABCR PO (09:10)
[2020-05-29] MEDS: Allopurinol 100 MG TAB 200 MG PO (09:10)
[2020-05-29] MEDS: Dexamethasone 1 MG TAB 3 MG PO (09:11)
[2020-05-29] MEDS: Magnesium Oxide 400 MG TAB PO ×2 (09:11→20:04)
[2020-05-29] MEDS: Potassium Chloride 20 MEQ TABCR 40 MEQ PO (09:11)
[2020-05-29] MEDS: Multivitamin TAB 2 TAB PO (09:11)
[2020-05-29] MEDS: Tamsulosin 0.4 MG CAPCR PO (09:11)
[2020-05-29] MEDS: levETIRAcetam 500 MG TAB PO ×2 (09:11→20:05)
[2020-05-29] MEDS: Thiamine 100 MG TAB PO (09:11)
[2020-05-29] MEDS: Apixaban 5 MG TAB PO ×2 (09:12→20:04)
--- NOTE | 2020-05-29 10:00 | W.PM.PROGNOT ---
Date of Service Date of service: 05/28/20 Time of Service: 17:00 Subjective Subjective Interval history since last seen: Patient fell yesterday afternoon while trying to get out of a recliner. By description, this was a mechanical fall. He fell onto his right side. He was reporting right-sided headache. Denied neck pain. VSS. Patient was conversant, following commands, answering questions appropriately. CT head/c-spine negative for acute bleed/injury. The patient will be on neurochecks. Physical therapy is consulted. Objective Last Vital Signs Temp 36.6 C 05/29/20 07:52 Pulse 64 05/29/20 07:52 Resp 17 05/29/20 07:52 BP 128/84 05/29/20 07:52 Pulse Ox 99 05/29/20 07:52 Laboratory Results - last 24 hr 05/29/20 06:05 Potassium 3.8 D
--- NOTE | 2020-05-29 12:39 | PT.INTREAT ---
Date of service: 05/29/20 Time of Service: 10:00 PT Notes Visit Reasons: PSEUDOMONAS BACTEREMIA CELLULITUS Inpatient Physical Therapy Treatment Note [facility] Date: 05/29/2020 PRECAUTIONS: Fall SUBJECTIVE: Chad is pleasant and agreeable to participating in PT. He reports that Dr. Lackey was in this morning, and changed the dressings on one of his feet, which he reports feels good. OBJECTIVE: PAIN: No c/o pain BED MOBILITY/TRANSFERS Supine-sit: S with HOB flat Sit-supine: SBA with HOB flat Sit-stand: SBA Stand-sit: S GAIT Assistive Device: FWW Weight bearing: Full Assist: SBA Distance: 150' x2 in a.m.; 450' in p.m. Deviation: Consistent and appropriate pacing THEREX: Patient was instructed in a global strengthening program, as per flow sheet. Patient completed all exercises in a standing position, on Airex pads to encourage improved stability. TOILETING: Patient toileted with SBA ASSESSMENT: Patient tolerated session with increased SOB and fatigue with activity. Patient was able to tolerate a progression in ther ex program, completing exercises in a standing position, while standing on Airex pads for promotion of improved stability. PLAN: Continue with global strengthening and gait training for improved mobility and activity tolerance. TREATMENT CODE/TIME: Session 1: 35 minutes; 51590, [id number] Session 2: 25 minutes; 50218 x2
[2020-05-29] MEDS: Acetaminophen 325 MG TAB 650 MG PO (14:17)
[2020-05-29 15:50] VITALS: BP 115/73; PULSE 77; RESP 18; TEMP 36.5; O2SAT 97
[2020-05-29] MEDS: QUEtiapine 25 MG TAB 12.5 MG PO (18:46)
--- NOTE | 2020-05-29 19:56 | PCPN_ITS ---
Date of service: 05/29/20 Time of Service: 18:56 Assessment and Plan Assessment and plan (1) Glioblastoma: Status: Acute (2) Cellulitis of foot, right: Status: Acute (3) Gross hematuria: Status: Acute (4) Palliative care patient: Status: Acute Assessment and plan: Chad does have some gradual decline. He does seem to be sundowning more at night. Plan is to start him on 12.5 mg of Seroquel at about 5:00 and see how he does with that. We may need to also do as needed d oses but we are going to start gradually. I spoke with care management and also Dr. De La Cruz. At this point we will place Chad on comfort measures only, but continue the IV antibiotics. He needs to be on these for approximately another 10 days. Hopefully with being on comfort measures both his daughter Clare and his Tomasa will be able to see him. I have spoken with Clare about the above. I also did venture to say that perhaps she would want to take her dad home so that his time left could be spent with people he loved. She was going to consider this and get back to mom. After I have seen. He seems entirely different and better than what I expected. I do not believe that he is actively dying but also do understand about comfort measures only. Thank you very much for this consult I will continue to cover for I also did call up Nadege at [facility]. They do want a hospice consult. I told her how important it was to have Clare at the meeting. Subjective Subjective Interval history since last seen: I am seeing Chad today with his daughter Clare. Clare had contacted me because Chad was having more episodes of sundowning and seemed considerably more agitated. She was quite concerned. She also felt that Seroquel as recommended by his oncologist might be a better opt ion than the Ativan. She also was very concerned that her mother could not be with him more. She was concerned also about his recent fall and how he had hit his head. She watches him nightly get aggravated at about 5:00. Exam Narrative Exam Narrative: Chad is sitting in his bed. His meal had just been brought in he was busily cutting up his turkey. He answered but mostly in general answers. He seemed to be breathing fine eating fine. Was answering me in complete sentences did not seem short of breath Objective Last Vital Signs Temp 97.7 F 05/29/20 15:50 Pulse 77 05/29/20 15:50 Resp 18 05/29/20 15:50 BP 115/73 05/29/20 15:50 Pulse Ox 97 05/29/20 15:50 Laboratory Results - last 24 hr 05/29/20 06:05 Potassium 3.8 D
[2020-05-29] MEDS: Senna TAB 2 TAB PO (21:33)
[2020-05-29] MEDS: Melatonin 3 MG TAB PO (21:33)
[2020-05-30] MEDS: PIPERACILLIN/TAZO 3.375 GM in Normal Saline 50 ML IVPB ×4 (04:50→22:22)
[2020-05-30 07:42] VITALS: BP 143/93; PULSE 67; RESP 18; TEMP 36.8; O2SAT 97
--- NOTE | 2020-05-30 07:59 | OT.INTREAT ---
Date of service: 05/30/20 Time of Service: 07:50 Occupational Therapy Notes Occupational Therapy Inpatient Treatment Note Date: 05/30/20 PRECAUTIONS: Fall, Standard, DNR/DNI SUBJECTIVE: Pt was sitting in chair when OT arrived. He was agreeable to OT session and notes that he slept ok last night. OBJECTIVE: PAIN:has c/o pain in (B) LE but states that this is minimal. BATHING: Sitting in chair with max (A) set up/clean up and min vc Upper Body: (I) face, (B) UE and abdomen with min vc. Max (A) back Lower Body: Pt denies. DRESSING: Sitting in chair Upper Extremity: Min (A) [facility] gown. ASSESSMENT/PLAN: Pt was able to tolerate sitting ADLs for 10 minutes today, he has good functional (I) but noted fatigue post bathing routine. Pt is ANESTHESIA TECH but will continue with OT services per MD. OT will work with pt to perform ADLs due to his tolerance with progress towards goals if symptoms allow. TREATMENT CODES/TIME: 69431, 10 minutes (07:50) Georgia Rose OTR/L [facility]
[2020-05-30] MEDS: Magnesium Oxide 400 MG TAB PO ×2 (08:08→19:37)
[2020-05-30] MEDS: Thiamine 100 MG TAB PO (08:09)
[2020-05-30] MEDS: Apixaban 5 MG TAB PO ×2 (08:09→19:37)
[2020-05-30] MEDS: Multivitamin TAB 2 TAB PO (08:09)
[2020-05-30] MEDS: Tamsulosin 0.4 MG CAPCR PO (08:09)
[2020-05-30] MEDS: levETIRAcetam 500 MG TAB PO ×2 (08:09→19:37)
[2020-05-30] MEDS: Dexamethasone 1 MG TAB 3 MG PO (08:09)
[2020-05-30] MEDS: Pantoprazole 40 MG TABCR PO (08:09)
[2020-05-30] MEDS: Allopurinol 100 MG TAB 200 MG PO (08:09)
[2020-05-30] MEDS: QUEtiapine 25 MG TAB 12.5 MG PO ×2 (08:10→16:36)
[2020-05-30] MEDS: Silver sulfaDIAZINE 1% 25 GM TUBE TP (10:30)
--- NOTE | 2020-05-30 11:18 | PDOC.CMPRO ---
Care Management Progress Note Chad has transitioned to SANITARY AIDE care. Per MD, he will continue to receive PT/OT services and IV ABX for comfort and in preparation of returning home with his family. CM spoke with Chad's daughter, Clare. Her and her mother, Tomasa met with Dr. Jasmine last night. Dr. Jasmine and Dr. De La Cruz then collaborated in regard to further treatment planning. Clare reported she and LARISSA Conner at [facility] have been attempting to connect. Clare shares that she anticipates her father will return home and be admitted to Hospice. She and her mother will participate in a Hospice consult to support determining needed DME, process and service provision. Tomasa and Clare are permitted to visit Chad as he is now SANITARY AIDE status.
--- NOTE | 2020-05-30 14:35 | PT.INTREAT ---
Date of service: 05/30/20 Time of Service: 14:35 PT Notes Visit Reasons: PSEUDOMONAS BACTEREMIA CELLULITUS Inpatient Physical Therapy Treatment Note [facility] Date: 05/30/2020 PRECAUTIONS: Fall SUBJECTIVE: Chad is pleasant and agreeable to participating in PT. OBJECTIVE: Chad appears tired today, and is less conversive than previous PT sessions. PAIN: No c/o pain BED MOBILITY/TRANSFERS Sit-supine: S with HOB flat Sit-stand: S Stand-sit: S GAIT Assistive Device: FWW Weight bearing: Full Assist: SBA Distance: 400' Deviation: Consistent and appropriate pacing STAIRS: Up/down 9x4 and 6x6 using B rails and a step-to pattern ASSESSMENT: Patient tolerated session with increased fatigue with activity. Patient was able to tolerate a progression in stair negotiation, tolerating equal to a full flight, using therapeutic stairs. PLAN: Continue with global strengthening and gait training for improved mobility and activity tolerance. TREATMENT CODE/TIME: 25 minutes; 53095 x2
[2020-05-30 15:42] VITALS: BP 164/93; PULSE 79; RESP 19; TEMP 36.6; O2SAT 100
[2020-05-30] MEDS: HYDROcodone 5/Acetaminophen 325 TAB PO (19:37)
[2020-05-30] MEDS: LORazepam 0.5 MG TAB PO (19:39)
[2020-05-30] MEDS: Senna TAB 2 TAB PO (22:21)
[2020-05-30] MEDS: Melatonin 3 MG TAB PO (22:21)
[2020-05-30] MEDS: Normal Saline Flush 10 ML SYR IVP (22:22)
[2020-05-30 23:15] VITALS: BP 144/92; PULSE 72; RESP 17; TEMP 36.6; O2SAT 98
[2020-05-31] MEDS: PIPERACILLIN/TAZO 3.375 GM in Normal Saline 50 ML IVPB ×4 (04:08→21:12)
--- NOTE | 2020-05-31 07:49 | OT.INTREAT ---
Date of service: 05/31/20 Time of Service: 07:20 Occupational Therapy Notes Occupational Therapy Inpatient Treatment Note Date: 05/31/20 PRECAUTIONS: Fall, Standard, DNR/DNI SUBJECTIVE: Pt was sitting in chair when OT arrived. He was agreeable to OT session. OBJECTIVE: PAIN:no c/o pain FUNCTIONAL MOBILITY Sit-stand: SBA Stand-sit: SBA sink-Chair: SBA Chair-sink: SBA BATHING: standing at sink with FWW and min vc Upper Body: (I) face, (B) UE and abdomen with min vc and SBA Lower Body: (I) to (B) knees with min (A) DRESSING: Upper Extremity: (I) [facility] gown TOILETING: Device: toilet Assist: (I) toileting hygiene ASSESSMENT/PLAN: Pt was able to perform his standing ADLS with increased (I). He does require SBA and min vc throughout. TREATMENT CODES/TIME: 81725, 25 minutes (07:20) Georgia Rose OTR/[facility]
[2020-05-31] MEDS: Thiamine 100 MG TAB PO (07:52)
[2020-05-31] MEDS: levETIRAcetam 500 MG TAB PO ×2 (07:52→19:46)
[2020-05-31] MEDS: Magnesium Oxide 400 MG TAB PO ×2 (07:52→19:44)
[2020-05-31] MEDS: Tamsulosin 0.4 MG CAPCR PO (07:52)
[2020-05-31] MEDS: Allopurinol 100 MG TAB 200 MG PO (07:52)
[2020-05-31 07:53] VITALS: BP 124/82; PULSE 97; RESP 20; TEMP 36.5; O2SAT 100
[2020-05-31] MEDS: Apixaban 5 MG TAB PO ×2 (07:53→19:46)
[2020-05-31] MEDS: Pantoprazole 40 MG TABCR PO (07:53)
[2020-05-31] MEDS: Dexamethasone 1 MG TAB 3 MG PO (07:53)
[2020-05-31] MEDS: Multivitamin TAB 2 TAB PO (07:53)
[2020-05-31] MEDS: Normal Saline Flush 10 ML SYR IVP ×2 (09:43→21:13)
--- NOTE | 2020-05-31 10:27 | PT.INPN ---
Date of service: 05/31/20 Time of Service: 10:27 PT Notes Visit Reasons: PSEUDOMONAS BACTEREMIA CELLULITUS Inpatient Physical Therapy Swing Bed 1 progress Note Date: 05/31/2020 Dates of Service: 05/24/2020 through 05/31/2020 Referring Doctor: Karsten Mckay MD PT Orders: PT CONSULT: Non-urgent Precautions: Fall. Standard. Activity as tolearated. Patient Profile/Admitting Diagnosis: Chad converts to swing bed level 1 as of 05/25/2020 and is being evaluated today for continued PT services. He is 70-year-old male with diagnosis of glioblastoma multiforme S/P partial frontal lobectomy with Optune device started just last week and on oral chemotherapy, acute kidney injury hospitalized on 05/12/2020 - 05/14/[address] [facility], BPH, Essential hypertension, GERD, Gout, HLD, squamous cell CA of neck, previous tobacco abuse. He is diagnosed on admission with gram-negative bacteremia, cellulitis of right leg, history of DVT, and glioblastoma multiforme (diagnosed early part of this year) and has just received hi Optune device last week. A podiatry consult has been requested by Dr. Mckay today to address ensure that all issues are addressed. Subjective: Chad is agreeable to sesion. present in the room during the evaluation. Encouraged to participate in session. Still looks forward to taking home. Denies dizziness. Complained about mild shortness of breath after session. Objective: General Observation: Supine in bed, feet elevated using pillows. Mental Status: Alert and oriented x 4 Pain: None reported ROM: Right Upper Extremity: Shoulder Flexion WFL. Shoulder abduction WFL. Elbow flexion WFL. Wrist flexion WFL. Functional opening and closing of hand WFL. Left Upper Extremity: Shoulder Flexion WFL. Shoulder abduction WFL. Elbow flexion WFL. Wrist flexion WFL. Functional opening and closing of hand WFL. Right Lower Extremity: Hip flexion WFL. Hip abduction WFL. Knee flexion WFL. Ankle dorsiflexion about 10 degrees beyond neutral. Ankle plantarflexion WFL. Left Lower Extremity: Hip flexion WFL. Hip abduction WFL. Knee flexion WFL. Ankle dorsiflexion about 10 degrees beyond neutral. Ankle plantarflexion WFL. Strength: Right Upper Extremity: Shoulder flexors 4-/5. Shoulder abductors 4-/5. Elbow flexors 4-/5. Elbow extensors 4-/5. Independent Living Advisor strong. Left Upper Extremity: Shoulder flexors 4-/5. Shoulder abductors 4-/5. Elbow flexors 4-/5. Extensors 4-/5. Independent Living Advisor strong. Right Lower Extremity: Hip flexors 3+/5. Hip abductors 3+/5. Knee flexors 4-/5. Knee extensors 3+/5. Ankle dorsiflexors 3-/5. Ankle plantarflexors 4/5. Left Lower Extremity:Hip flexors 4-/5. Hip abductors 4-/5. Knee flexors 4-/5. Knee extensors 4-/5. Ankle dorsiflexors 4-/5. Ankle plantarflexors 4/5. Sensation: Intact throughout B lower extremities Bed Mobility/Transfers: Sit to stand supervision, requires use of front wheeled walker for stability Stand to sit supervision, requires use of front wheeled walker for stability Bed to chair supervision, requires use of front wheeled walker for stability Chair to bed supervision, requires use of front wheeled walker for stability Gait: 300 feet using front wheeled walker with full weight bearing on bilateral lower extremities requiring standby assist. Mild shortness of breath observed at end of activity, subsided with rest. THERA EX: Bilateral heel raises x 20. Sit<>stand x 10 for 2 reps using B hands for support from edge of bed. Balance: Static Sitting: Normal Dynamic Sitting: Normal Static Standing: Fair Dynamic Standing: Fair 4-Stage Balance Test: Able to perform feet together for 10 seconds. Unable to perform positions 2-4 safely indicating continued risk for falls and strict need to use FWW for all mobility ADL performance. Special Tests: Mobility Limitations Standardized Measure [facility] 6 clicks Basic Mobility Inpatient Short Form: Raw Score: 23 CMS score: 11% disability Assessment: Chad continues to demonstrate the need for a front wheeled walker for all mobility ADL performance, generalized weakness to both lower extremities with the right more affected than the left, impaired balance, difficulty with walking, and increased fall risk due to pre-existing glioblastoma multiforme along with family admitting diagnoses. Chad converted to swing bed level 1 as of 05/25/2020 and is being seen today for continued PT services. He is 70-year-old male with diagnosis of glioblastoma multiforme S/P partial frontal lobectomy with Optune device started just last week and on oral chemotherapy, acute kidney injury hospitalized on 05/12/2020 - 05/14/[address] [facility], BPH, Essential hypertension, GERD, Gout, HLD, squamous cell CA of neck, previous tobacco abuse. He is diagnosed on admission with gram-negative bacteremia, cellulitis of right leg, history of DVT, and glioblastoma multiforme (diagnosed early part of this year). Impairment level findings: Lower extremity weakness with R>>L Poor balance Decreased activity tolerance/SOB Decreasing swelling to B legs Venous stasis ulcer to dorsum of R foot Blister on distal sural area on the R Functional limitations: 1. Inability to safely ambulate without assistive device and physical assistance 2. Increase completion time for mobility ADL performance 3. Increased fall risk 4. Inability to negotiate steps alone safely Patient is assessed as a 24988 high complexity based on the following: History: 70-year-old male with impairment level findings, functional limitations, and past medical history as listed above Examination:Demonstrable impairment in strength, balance, and mobility level with underlying impairments and functional limitations as documented above Presentation: Evolving Decision Makin high complexity Goals: Goals X1 week 1. Supine-Sit independent NOT MET 2. Sit-Supine independent NOT MET 3. Sit-Stand independent NOT MET 4. Stand-Sit independent NOT MET 5. Bed-Chair independent NOT MET 6. Chair-Bed independent NOT MET 7. Gait 300 feet with walker, independent NOT MET 8. Stairs 10, close supervision, with rail NOT MET 9. Independent with home exercise program. NOT MET 10. Will demonstrate maintenance of all 4 positions in the 4-stage balance test for 10 seconds each in order to reduce fall risk NOT MET DISCHARGE RECOMMENDATIONS: Patient will benefit from resumption of home health PT services in order to progress mobility level using FWW, assess home safety, identify additional equipment needs, and establish a functional maintenance program that will increase ability of patient to remain at home. TREATMENT CODE/TIME: 24779 x 42 minutes beginning at 10:27 AM. Thank you for the opportunity to participate in the care of this patient. Chinyere Holbrook PT, DPT, CLT [facility] [place], [place]
--- NOTE | 2020-05-31 15:26 | CMPROGNOTE_ITS ---
- If Service Date Differs Date of service: 05/31/20 Time of Service: 15:26 Care Management Progress Note S/O: CM discussed Chad's discharge plan with Dr. Jasmine, who came in to see him again. Per pharmacy, his abx course will be complete late on 06/03/20. He will then discharge home on 06/04/20, and will be admitted to Hospice on Friday06/05/20. Dr. Jasmine will order HEREDITARY CANCER PROGRAM COORDINATOR to go into the home to explore additional options/resources that may be afforded to [facility] via the [facility]. CM will c all Daria Mcgee at the [place] to inquire about this also. Dr. Jasmine discussed this plan with Clare, who is in agreement. CM will continue to follow and support discharge planning considerations. A: Chad is a 70 year old male at [facility] on SWB1 for IV abx. P: Chad will complete this course of abx, which ends late on 06/03/20, and then will subsequently discharge on 06/04/20 with an admission to Hospice on 06/05/20. He will be driven by family via private vehicle. CM will continue to follow and support Chad and his family.
--- NOTE | 2020-05-31 15:48 | W.PALPGNOTE ---
Date of service: 05/31/20 Time of Service: 14:48 Assessment and Plan Assessment and plan (1) Complication of Cummins catheter: Status: Acute Qualifiers: Encounter type: initial encounter Qualified Code(s): T83.9XXA - Unspecified complication of genitourinary prosthetic device, implant and graft, initial encounter (2) Venous stasis of both lower extremities: Status: Acute (3) Sepsis: Status: Acute Qualifiers: Sepsis acute organ dysfunction status: without acute organ dysfunction (4) Cellulitis of foot, right: Status: Acute (5) Glioblastoma: Status: Acute (6) Palliative care patient: Status: Acute Assessment and plan: Family has decided to take at home hospice hopefully on Friday. At that time he will have completed his IV antibiotics. We will continue to get Unna boots after discharge and last day are uncomfortable for him. Hospice is able to attend to his wound. Catheter this is a chronic source of irritation for him. It was in because of his hematuria. I have not seen any pinkness in his urine for quite some time. Because of his glioblastoma a work-up in this would not be helpful for the overall quality of Chad's life. I would recommend that the catheter be removed. This may also alleviate some of his sources of frustration I have spoken with hospice and talk to them about a medical social work consult. He is a vet and he may be eligible for some services from the [facility] around his care. His 2 children and his will be caring for him. His is a little concerned because of his anger when things were not done great when he wanted him to. I have increased his Seroquel to 12.5 at noon and 25 at 5 PM. Hopefully this will help. Also getting rid of the catheter could be very helpful to. I communicated with both Nadege from hospice and Dr. De La Cruz from the hospitalist team. I also spoke at length to Clare his daughter Subjective Subjective Interval history since last seen: Continues to get antibiotics for his cellulitis. Family has decided that they want to skip any infusions or any additional visits down to [facility]. They are ready to take him home on hospice and this has been arranged for Friday or Friday. Staff states that he is still getting agitated some at night. He does get fairly angry when people do not respond as quickly to him especially around toileting. He continues to have the catheter in place. It is clear at this point. Exam Narrative Exam Narrative: Chad is sitting in bed. He is watching a movie and seems to be following it somewhat. The urine in the bag is clear and does not show any signs of hematuria. His heart was regular. Lungs good aeration. I did not examine the foot today Objective Last Vital Signs Temp 97.7 F 05/31/20 07:53 Pulse 97 H 05/31/20 07:53 Resp 20 05/31/20 07:53 BP 124/82 05/31/20 07:53 Pulse Ox 100 05/31/20 07:53
[2020-05-31 16:19] VITALS: BP 126/80; PULSE 89; RESP 18; TEMP 36.3; O2SAT 100
[2020-05-31] MEDS: QUEtiapine 25 MG TAB PO (17:04)
[2020-05-31] MEDS: HYDROcodone 5/Acetaminophen 325 TAB PO (19:44)
[2020-05-31] MEDS: Melatonin 3 MG TAB PO (21:12)
[2020-05-31] MEDS: Senna TAB 2 TAB PO (21:12)
[2020-05-31 21:39] VITALS: BP 130/75; PULSE 90; RESP 18; TEMP 36.6; O2SAT 100
[2020-05-31 23:25] VITALS: BP 144/97; PULSE 80; RESP 17; TEMP 36.3; O2SAT 98
[2020-06-01] MEDS: PIPERACILLIN/TAZO 3.375 GM in Normal Saline 50 ML IVPB ×4 (03:31→21:07)
[2020-06-01] MEDS: Normal Saline Flush 10 ML SYR IVP ×2 (03:31→21:08)
[2020-06-01] MEDS: Dexamethasone 1 MG TAB 3 MG PO (07:34)
[2020-06-01] MEDS: Apixaban 5 MG TAB PO ×2 (07:34→20:05)
[2020-06-01] MEDS: Magnesium Oxide 400 MG TAB PO ×2 (07:34→20:04)
[2020-06-01] MEDS: Allopurinol 100 MG TAB 200 MG PO (07:34)
[2020-06-01] MEDS: levETIRAcetam 500 MG TAB PO ×2 (07:34→20:05)
[2020-06-01] MEDS: Multivitamin TAB 2 TAB PO (07:34)
[2020-06-01] MEDS: Thiamine 100 MG TAB PO (07:35)
[2020-06-01] MEDS: Pantoprazole 40 MG TABCR PO (07:35)
[2020-06-01] MEDS: Tamsulosin 0.4 MG CAPCR PO (07:35)
[2020-06-01 07:55] VITALS: BP 142/94; PULSE 67; RESP 14; TEMP 36.4; O2SAT 99
--- NOTE | 2020-06-01 09:50 | W.PM.PROGNOT ---
Date of Service Date of service: 06/01/20 Time of Service: 09:50 Assessment and Plan Assessment and plan (1) Complication of [place] catheter: Status: Acute Assessment and plan: dover discontinued and seems to be voiding well, continue Qualifiers: Encounter type: initial encounter Qualified Code(s): T83.9XXA - Unspecified complication of genitourinary prosthetic device, implant and graft, initial encounter (2) Venous stasis of both lower extremities: Status: Acute Assessment and plan: Elevate BLEs above heart level frequently. Unna boot placed by Dr Lackey. (3) Sepsis: Status: Resolved Qualifiers: Sepsis acute organ dysfunction status: without acute organ dysfunction (4) Cellulitis of foot, right: Status: Acute Assessment and plan: Podiatry, Dr Lackey has evaluated; mild debridement performed. on and will complete course prior to discharge on Friday, no antibiotics on discharge (5) Glioblastoma: Status: Acute Assessment and plan: palliative care consulted. plan to go home friday and admitted to hospice on Friday (6) Discharge planning issues: Status: Acute Assessment and plan: case management following plan is to discharge home Friday and start home hospice on Friday. case discussed with DR ritter who is in agreement Subjective Subjective Patient reports: no new complaints, tolerating liquids well, tolerating a regular diet and afebrile Exam Const General: cooperative and no acute distress Nutritional Appearance: average body habitus Orientation: oriented to person and oriented to place Resp Effort & Inspection: normal respiratory effort Auscultation: clear to auscultation bilaterally Cardio Rate: regular rate Rhythm: regular rhythm Heart Sounds: S1 normal and S2 normal GI Palpation: soft and nontender Auscultation: normal bowel sounds Extrem General: edema (2-3 + edema of R foot and ankle. L foot and ankle with ELLA wrap) Objective Last Vital Signs Temp 36.4 C L 06/01/20 07:55 Pulse 67 06/01/20 07:55 Resp 14 06/01/20 07:55 BP 142/94 H 06/01/20 07:55 Pulse Ox 99 06/01/20 07:55
[2020-06-01] MEDS: Silver sulfaDIAZINE 1% 25 GM TUBE TP (10:03)
[2020-06-01] MEDS: QUEtiapine 25 MG TAB 12.5 MG PO (11:35)
[2020-06-01] MEDS: Acetaminophen 325 MG TAB 650 MG PO (11:36)
--- NOTE | 2020-06-01 14:09 | PT.INTREAT ---
Date of service: 06/01/20 Time of Service: 11:00 PT Notes Visit Reasons: PSEUDOMONAS BACTEREMIA CELLULITUS Inpatient Physical Therapy Treatment Note [facility] Date: 06/01/2020 PRECAUTIONS: Fall SUBJECTIVE: Chad is agreeable to participating in PT. OBJECTIVE: PAIN: No c/o pain BED MOBILITY/TRANSFERS Sit-stand: S Stand-sit: S Bed-Chair: S Chair-bed: S GAIT Assistive Device: FWW Weight bearing: Full Assist: SBA Distance: 150' x2 THEREX: Patient was instructed in several LE strengthening exercises, in a standing position, as per flow sheet. Patient was also instructed in functional ruo-eg-[id number] exercises without UE support. He c/o significantly increased fatigue following ther ex. ASSESSMENT: Patient tolerated session with complaint of increased fatigue with activity. PLAN: Continue with global strengthening as well as gait and transfer training for continued progression toward baseline level of function. TREATMENT CODE/TIME: 20 minutes; [id number]
--- NOTE | 2020-06-01 15:31 | CHAPLAIN ---
I spoke with Clare today, while Chad was walking with PT. She updated me on the family's plans to take Chad home on Friday and have a hospice admission for him on Friday. Her sister is arriving from [place] soon. Clare and said her mom is agreement to go with her daughters to the home to make prearrangements. Clare said Chad's catheter was taken out and that has made him happier. Today he was playing with [employer] cards, sort of making up his own game, Clare said, as he likes to keep his hands busy. Chad's is a member of the [employer] in [place] and Clare requested that I check in with Rev. Shree Dumas to see if he could visit her mom at home, and I did that. Today I let Clare know that she, and everyone in the family will have access to Rev. Risa Newberry, the print production coordinator, and encouraged Clare to contact
--- NOTE | 2020-06-01 15:43 | PDOC.CMACT ---
- If Service Date Differs Date of service: 06/01/20 Time of Service: 15:43 Care Management Activity Note Chad continues to receive PT/OT treatments while at [facility]. He has visits with his and daughter, who are both listed as his supports, following the Covid 19 visitor guidelines. He has had regular visits from Palliative care. CM has helped coordinate his discharge plan with Chad, his family, and Hospice. He will finish his abx treatment on 06/03/20, late in the evening. He will discharge home on 06/04/20, and he will be admitted to Hospice on Friday06/05/20. CM will continue to follow and support discharge planning considerations.
[2020-06-01] MEDS: QUEtiapine 25 MG TAB PO (17:12)
[2020-06-01 17:52] VITALS: BP 112/78; PULSE 104; RESP 17; TEMP 36.4; O2SAT 99
[2020-06-01] MEDS: Melatonin 3 MG TAB PO (21:07)
[2020-06-01] MEDS: Senna TAB 2 TAB PO (21:07)
[2020-06-02] MEDS: PIPERACILLIN/TAZO 3.375 GM in Normal Saline 50 ML IVPB ×4 (03:46→22:02)
[2020-06-02 07:54] VITALS: BP 151/87; PULSE 64; RESP 16; TEMP 36.6; O2SAT 98
[2020-06-02] MEDS: Thiamine 100 MG TAB PO (08:21)
[2020-06-02] MEDS: Multivitamin TAB 2 TAB PO (08:21)
[2020-06-02] MEDS: Tamsulosin 0.4 MG CAPCR PO (08:21)
[2020-06-02] MEDS: Dexamethasone 1 MG TAB 3 MG PO (08:21)
[2020-06-02] MEDS: Magnesium Oxide 400 MG TAB PO ×2 (08:21→20:02)
[2020-06-02] MEDS: levETIRAcetam 500 MG TAB PO ×2 (08:21→20:02)
[2020-06-02] MEDS: Apixaban 5 MG TAB PO ×2 (08:21→20:02)
[2020-06-02] MEDS: Allopurinol 100 MG TAB 200 MG PO (08:21)
[2020-06-02] MEDS: Normal Saline Flush 10 ML SYR IVP (08:22)
--- NOTE | 2020-06-02 09:08 | NT_ITS ---
Date of service: 06/02/20 Time of Service: 09:08 Occupational Therapy Notes 06/02/20 OT attempted to see pt who would like to hold on OT services for today. Georgia Rose OTR/[facility]
[2020-06-02] MEDS: Pantoprazole 40 MG TABCR PO (09:22)
[2020-06-02] MEDS: QUEtiapine 25 MG TAB 12.5 MG PO (12:03)
--- NOTE | 2020-06-02 15:11 | PT.INTREAT ---
Date of service: 06/02/20 Time of Service: 11:00 PT Notes Visit Reasons: PSEUDOMONAS BACTEREMIA CELLULITUS Inpatient Physical Therapy Treatment Note [facility] Date: 06/01/2020 PRECAUTIONS: Fall SUBJECTIVE: Chad is agreeable to participating in PT. He reports that he is feeling pretty good today and that he is looking forward to discharging home this weekend. OBJECTIVE: PAIN: No c/o pain BED MOBILITY/TRANSFERS Sit-stand: I Stand-sit: I Bed-Chair: S Chair-bed: S GAIT Assistive Device: FWW Weight bearing: Full Assist: SBA Distance: 150' + 300' STAIRS: Up/down 14x6 using U rail/SPC and a step-to pattern with supervision ASSESSMENT: Patient tolerated session with complaint of increased fatigue with activity. He tolerated a progression in stair negotiation, tolerating a flight of stairs with supervision only. PLAN: Continue with global strengthening as well as gait and transfer training for continued progression toward baseline level of function. TREATMENT CODE/TIME: 30 minutes; [id number] x2
[2020-06-02] MEDS: QUEtiapine 25 MG TAB PO (16:44)
[2020-06-02 20:55] VITALS: BP 129/84; PULSE 83; RESP 16; TEMP 36.6; O2SAT 99
[2020-06-02] MEDS: Melatonin 3 MG TAB PO (22:02)
[2020-06-02] MEDS: Senna TAB 2 TAB PO (22:02)
[2020-06-03] MEDS: PIPERACILLIN/TAZO 3.375 GM in Normal Saline 50 ML IVPB ×3 (04:17→17:59)
[2020-06-03 08:30] VITALS: BP 123/78; PULSE 86; RESP 14; TEMP 36.8; O2SAT 95
[2020-06-03] MEDS: Dexamethasone 1 MG TAB 3 MG PO (08:30)
[2020-06-03] MEDS: Allopurinol 100 MG TAB 200 MG PO (08:31)
[2020-06-03] MEDS: Thiamine 100 MG TAB PO (08:31)
[2020-06-03] MEDS: Pantoprazole 40 MG TABCR PO (08:31)
[2020-06-03] MEDS: Multivitamin TAB 2 TAB PO (08:31)
[2020-06-03] MEDS: Apixaban 5 MG TAB PO ×2 (08:31→20:09)
[2020-06-03] MEDS: Tamsulosin 0.4 MG CAPCR PO (08:31)
[2020-06-03] MEDS: Magnesium Oxide 400 MG TAB PO ×2 (08:31→20:09)
[2020-06-03] MEDS: levETIRAcetam 500 MG TAB PO ×2 (08:31→20:09)
[2020-06-03] MEDS: Normal Saline Flush 10 ML SYR IVP (08:32)
--- NOTE | 2020-06-03 11:03 | PT.INTREAT ---
Date of service: 06/03/20 Time of Service: 11:03 PT Notes Visit Reasons: PSEUDOMONAS BACTEREMIA CELLULITUS Inpatient Physical Therapy Treatment Note [facility] Date: 06/03/2020 PRECAUTIONS: Fall SUBJECTIVE: Chad is agreeable to participating in PT. He reports that he is feeling pretty good today and that he is looking forward to discharging home this weekend. OBJECTIVE: PAIN: No c/o pain BED MOBILITY/TRANSFERS Sit-supine: I with HOB flat Sit-stand: I Stand-sit: I Bed-Chair: S Chair-bed: S GAIT Assistive Device: FWW Weight bearing: Full Assist: SBA Distance: 350' STAIRS: Up/down 14x6 using U rail/SPC and a step-to pattern with supervision ASSESSMENT: Patient tolerated session well, with complaint of slightly increased fatigue with activity. He tolerated a progression in stair negotiation, tolerating a flight of stairs with supervision only. PLAN: Continue with global strengthening as well as gait and transfer training for continued progression toward baseline level of function. TREATMENT CODE/TIME: 30 minutes; [id number] x2
[2020-06-03] MEDS: Silver sulfaDIAZINE 1% 25 GM TUBE TP (11:54)
[2020-06-03] MEDS: QUEtiapine 25 MG TAB 12.5 MG PO (12:06)
--- NOTE | 2020-06-03 12:25 | NUR.NOTE ---
Nursing Note: 06/03/2020 12:25 Nurse responded to the yellow light for patient's room, indicating that his fall strip in his chair was signaling. Nurse found patient up in room independently playing with the hill-rom box on the wall. Nurse provided verbal education to patient about the hospital environment, fall precautions, ringing for assistance, and tampering with equipment. Patient verbalized understanding. Nurse will continue to emphasize that the patient is not to get up without assistance and continue to reorient patient to use of call solomon.
[2020-06-03 15:54] VITALS: BP 145/72; PULSE 82; RESP 18; TEMP 36.6; O2SAT 98
[2020-06-03] MEDS: QUEtiapine 25 MG TAB PO (17:59)
[2020-06-03] MEDS: Senna TAB 2 TAB PO (20:08)
[2020-06-03] MEDS: Melatonin 3 MG TAB PO (20:09)
[2020-06-03] MEDS: Ciprofloxacin 500 MG TAB PO (20:09)
--- NOTE | 2020-06-04 07:40 | W.PM.DS.N ---
Date of service: 06/04/20 Time of Service: 07:40 DS: Diagnosis Discharge Diagnosis (1) Sepsis: Start date: 06/04/20 Start time: 07:42 Status: Resolved Asessment and Plan: From cellulitis, Resolved discharging home on cipro to finish 14 day course antibiotics BC repeat NGTD Afebrile without leukocytosis (2) Cellulitis of foot, right: Start date: 06/04/20 Start time: 07:44 Status: Resolved Asessment and Plan: Seen by Dr. patterson, improved, as above Margoth boot in place elevate when able to (3) Glioblastoma: Start date: 06/04/20 Start time: 07:42 Status: Chronic Asessment and Plan: Discharging today Home with plan for hospice in am. Newly diagnosed, with poor prognosis. (4) Complication of Cummins catheter: Start date: 06/04/20 Start time: 07:40 Status: Resolved Asessment and Plan: Voiding well (5) Venous stasis of both lower extremities: Start date: 06/04/20 Start time: 07:41 Status: Acute Asessment and Plan: Unna boot by Dr. Patterson, elevate frequently above heart level (6) Discharge planning issues: Start date: 06/04/20 Start time: 07:45 Status: Acute Asessment and Plan: He is being discharged home with hospice. Above case discussed with Dr. Still who is in agreement. Discharge Plan Disposition Patient Disposition: HOME Condition: Stable Discharge Details Reason For Visit: PSEUDOMONAS BACTEREMIA CELLULITUS Admit Date/Time: 05/25/20 13:28 Admit Provider: Karsten Mckay Attending Provider: Karsten Mckay Primary Care Provider: Sunday Orellana Hospital Course Hospital Course: This is a 70 yo male with a recent h/o glioblastoma dxd this summer, s/p prtial frontal lobectomy on oral chemotherapy, acute kidney injury hospitalized on 05/12/2020 - 05/14/2020 at [facility], BPH, Essential hypertension, GERD, Gout, HLD, squamous cell CA of neck, previous tobacco abuse. He was brought to ED via EMS d/t fever of 102F at home. Family has noted a sore on the dorsum of the R foot that has worsened and has had some drainage. Today there was a bruise around the area that wasn't noted before. The patient doesn't recall if he traumatized the foot or not. His daughter gives his history and she is his primary healthcare agent. She reported noting that he has been more fatigued over the last several days. He has had no cough/sputum, SOA, runny nose, diarrhea. Zosyn initiated for cellulitis treatment. His blood culture grew pseudomonas aeruginosa and his antibiotic coverage was changed to IV cipro 400mg Q12 hours. A 14 day course of IV antibiotics indicated. His WBC count increased to 12.15 then normalized. Creatinine improved to 1.24 His glucose was managed with sliding scale insulin. He was initially placed on stress dosing of steroids; IV hydrocortisone and then re-started on his routine Decadron 3mg po daily. He was transitioned to SB status to finish IV antibiotics. During SB status Dr. Alicia met with family and they have decided to bring him home on hospice. His actual finish date for antibiotics is 06/10/2020 therefore he was transitioned to Cipro and can finish this at home. He will enrolled in hospice on Friday. Home Meds and New Rx's Prescriptions: New quetiapine 25 mg Tablet 12.5 mg PO DAILY@1200 Qty: 20 RF: 0 quetiapine 25 mg Tablet 25 mg PO DAILY@1700 Qty: 20 RF: 0 hydrocodone-acetaminophen 5-325 mg Tablet 1 tab PO Q6H PRN PRNQty: 30 RF: 0 ciprofloxacin HCl 500 mg Tablet 500 mg PO BID Qty: 13 RF: 0 Continued allopurinol 100 mg tablet 200 mg PO DAILY Qty: 180 RF: 4 lorazepam 1 mg tablet 1 mg PO Q4H PRN MDD hospice PRN (Reason: anxiety) Qty: 6 RF: 0 morphine concentrate 100 mg/5 mL (20 mg/mL) solution 10 mg PO Q1H PRN MDD hospice PRN (Reason: pain or dyspnea) Qty: 30 RF: 0 sennosides [senna] 8.6 mg Tablet 17.2 mg PO QHS RF: 0 ondansetron 8 mg Tablet,Disintegrating 4 mg PO Q8H PRNRF: 0 pantoprazole 40 mg Tablet,Delayed Release (Dr/Ec) 40 mg PO DAILY RF: 0 acetaminophen 325 mg Tablet 650 mg PO Q6H PRNRF: 0 levetiracetam 500 mg Tablet 500 mg PO BID RF: 0 dexamethasone 1 mg Tablet 3 mg PO DAILY RF: 0 Discontinued Eliquis 5 mg tablet 5 mg PO BID RF: 0 metformin 500 mg tablet See Rx Instructions .ROUTE .COMPLEX RF: 0 tamsulosin [Flomax] 0.4 mg capsule 0.4 mg PO DAILY Qty: 90 RF: 4 multivitamin [Daily Value] 1 EACH tablet 2 ea PO DAILY RF: 0 atorvastatin [Lipitor] 10 mg Tablet 10 mg PO DAILY RF: 0 thiamine HCl (vitamin B1) 100 mg Tablet 100 mg PO DAILY RF: 0 pyridoxine (vitamin B6) 50 mg Tablet 50 mg PO DAILY RF: 0 temozolomide 140 mg Capsule See Rx Instructions .ROUTE .COMPLEX RF: 0 melatonin 2.5 mg Tablet,Chewable 2.5 mg PO HS RF: 0 Discharge Instructions Instructions: Cellulitis (DC) Additional Instructions: Defer to hospice for medication management Home with Hospice Take cipro twice daily until finished Activity:: Activity as Tolerated Equipment/Supplies:: No Equipment Needed Diet:: Normal Diet Discharge Orders Discharge Orders: Discharge Order (Routine); Ordered 06/04/20 Ordered By: Maria T Sweet DS: Summary Status at Discharge Functional status at discharge: independent ambulation Overall status at discharge: patient is progressing back to baseline Mental Status: mental status grossly normal Speech and Movement: speech and movement normal Mood: congruent mood Affect: normal affect Exam Const General: cooperative and no acute distress Nutritional Appearance: average body habitus Orientation: oriented to person and oriented to place Resp Effort & Inspection: normal respiratory effort Auscultation: clear to auscultation bilaterally Cardio Rate: regular rate Rhythm: regular rhythm Heart Sounds: S1 normal and S2 normal GI Palpation: soft and nontender Auscultation: normal bowel sounds Extrem General: edema (improved edema. continue wrap) Psych Mental Status: mental status grossly normal Speech and Movement: speech and movement normal Mood: congruent mood Affect: normal affect DS: Data Vitals/I&O Vitals and I&O: Vital Signs Temperature 36.6 C 06/03/20 15:54 Temperature Source Tympanic 06/03/20 15:54 Pulse 82 06/03/20 15:54 Pulse Rhythm Regular 05/29/20 18:28 Respiratory Rate 18 06/03/20 15:54 Respiratory Effort Non-Labored 06/03/20 23:41 Respiratory Depth Normal 06/03/20 23:41 Respiratory Pattern Normal 06/03/20 23:41 Blood Pressure 145/72 H 06/03/20 15:54 Pulse Oximetry 98 06/03/20 15:54 Oxygen Delivery Method Room Air 06/03/20 15:54 Oxygen Flow Rate 0 06/03/20 15:54 Pain Level 0 06/03/20 15:54 Comment 05/31/20 23:25 Intake & Output 06/03/20 06/03/20 06/04/20 11:59 23:59 11:59 Intake Total 310 / 1040 730 / 1040 200 / 200 Balance 310 / 1040 730 / 1040 200 / 200 Intake: IV 60 / 60 Oral 250 / 980 730 / 980 200 / 200 Other: Urine Color Yellow Yellow Urine Appearance Clear Clear Clear Urine Odor Normal Normal Comment Patient voided in toilet x1 and flushed before nurse was able to visualize urine pt flushed toliet pt flushed the toliet. did not see Stool Size Moderate Small Stool Characteristics Formed Soft Formed Green Voiding Methods Toilet Toilet Toilet [facility] Medical History Actinic keratitis (06/07/14) LEFT BUDDHISM/FOREHEAD Age-related macular degeneration Allergic rhinitis BPH w urinary obs/LUTS (03/01/16) Cataract Cervical disc prolapse with radiculopathy diskectomy/fusion 2000 Diverticulosis of colon without diverticulitis Elevated PSA (03/01/16) Essential hypertension (09/30/13) Weight and alcohol dependent Family hx of prostate cancer Gastroesophageal reflux disease HH; LAP JOSH Glioblastoma Gout Gross hematuria Hematuria, unspecified History of DVT (deep vein thrombosis) History of tobacco use Hyperlipidemia Neoplasm of unspecified nature of bone, soft tissue, and skin (08/07/15) Obesity Shoulder pain right; full thickness tear 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 THORPE; RIGHT SIDE OF NECK; LEFT SIDE OF FOREHEAD Surgical History Appendectomy Correction, Hammertoe RIGHT nasal surgery left nasal polypoid lesion removed Vasectomy Family History Mother Stroke Father Heart disease Sister No problems noted. Sister No problems noted. Sister No problems noted. Sister No problems noted. Daughter No problems noted. Daughter No problems noted. Maternal Grandfather Edema Heart disease Paternal Grandfather , ACCIDENTAL at age 49. No problems noted. Paternal Grandmother No problems noted. Maternal Grandmother Stroke Social History Smoking/Tobacco Use Status: Former Tobacco Use Quit Date: 09/26/87 Smoking risk assessment performed?: Yes Alcohol Intake: former Drug use: Never Substance use type: does not use Caregiver/Support person: No Household members: spouse Pets and animals: No Do you think of yourself as: straight/heterosexual Duration: 45-60 minutes/day Frequency: 1-2 times per week Vanita/Protestant: Congregational Special vanita needs: No Do you feel safe at home: Yes Do you feel safe in your relationship?: Yes
[2020-06-04] MEDS: Tamsulosin 0.4 MG CAPCR PO (07:53)
[2020-06-04] MEDS: Pantoprazole 40 MG TABCR PO (07:53)
[2020-06-04] MEDS: Allopurinol 100 MG TAB 200 MG PO (07:53)
[2020-06-04] MEDS: levETIRAcetam 500 MG TAB PO (07:54)
[2020-06-04] MEDS: Ciprofloxacin 500 MG TAB PO (07:54)
[2020-06-04] MEDS: Magnesium Oxide 400 MG TAB PO (07:54)
[2020-06-04] MEDS: Multivitamin TAB 2 TAB PO (07:54)
[2020-06-04] MEDS: Thiamine 100 MG TAB PO (07:54)
[2020-06-04] MEDS: Apixaban 5 MG TAB PO (07:54)
[2020-06-04] MEDS: Dexamethasone 1 MG TAB 3 MG PO (07:54)
[2020-06-04] MEDS: QUEtiapine 25 MG TAB 12.5 MG PO (12:44)
--- NOTE | 2020-06-04 12:56 | CMDISCH_ITS ---
LACE Index Scoring Tool - Questions: Length of Stay (in days): 7 - 13 Acuity (Admit via E.D.?): Yes Comorbidities: Any Tumor E.D. Visits: 4 - Answers: Total Score: 14 Risk of Readmission: High Risk Care Management Discharge Reason for Hospitalization: Pseudomonas bactermia cellulitis Discharge Plan: Chad will return home with close follow up with [facility]; anticipate Hospice admission tomorrow, 06/05/20. CM faxed DC summary to [facility] and Daria MARIE at the [facility] F#[phone]. Chad will have a new prescription for a 14 day course of oral antibiotics per MD. He will transport via private vehicle with family. Patient/Family Education Needs: Review of discharge instructions, community based supports, discuss Ask Me Three. Services Needed at Discharge: Home Health Care Services (Hospice admission scheduled 06/05/20.)
--- NOTE | 2020-06-05 06:58 | OTDS_ITS ---
Date of service: 06/05/20 Time of Service: 06:58 Occupational Therapy Notes Occupational Therapy Inpatient Discharge Summary *This document serves as a summary of care, no skilled OT services provided for this documentation* Date: 06/05/20 Dates of Service: 05/29/20-06/05/20 Referring Doctor: Karsten Mckay MD OT Orders: Non-URgent Precautions: Fall, Standard, DNR/DNI PATIENT PROFILE/ADMITTING DIAGNOSIS: Pt is a 70 year old male who was admitted to [facility] with the dx of glioblastoma multiforme S/P partial frontal lobectomy with Optune device started just last week and on oral chemotherapy, acute kidney injury hospitalized on 05/12/2020 - 05/14/2020 at [facility], BPH, Essential hypertension, GERD, Gout, HLD, squamous cell CA of neck, previous tobacco abuse. He is dx at ED with gram-negative bacteremia, cellulitis of right leg, history of DVT, and glioblastoma multiform. Past Medical History: Medical History Actinic keratitis (06/07/14) LEFT VOODOO/FOREHEAD Age-related macular degeneration Allergic rhinitis BPH w urinary obs/LUTS (03/01/16) Cataract Cervical disc prolapse with radiculopathy diskectomy/fusion 2000 Diverticulosis of colon without diverticulitis Elevated PSA (03/01/16) Essential hypertension (09/30/13) Weight and alcohol dependent Family hx of prostate cancer Gastroesophageal reflux disease HH; LAP JOSH Glioblastoma Gout Hematuria, unspecified History of DVT (deep vein thrombosis) History of tobacco use Hyperlipidemia Neoplasm of unspecified nature of bone, soft tissue, and skin (08/07/15) Obesity Shoulder pain right; full thickness tear 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 THORPE; RIGHT SIDE OF NECK; LEFT SIDE OF FOREHEAD Surgical History Appendectomy Correction, Hammertoe RIGHT nasal surgery left nasal polypoid lesion removed Vasectomy Social History/Home Situation: Lives with in a private home. Daughter,who works at this hospital, lives close by. He has HH PT who comes into his home a couple days per week. He states that his has to (A) him with his ADLS and that he is not (I) at his baseline level of function. Equipment owned/DME: FWW, grab bars, commode, shower bench, raised toilet seat. SUBJECTIVE: NT OBJECTIVE: ROM: RUE AROM WFL L UE AROM WFL STRENGTH: RUE 4/5 throughout globally LUE 4-/5 throughout globally FUNCTIONAL MOBILITY/ADLS: Sit-stand: SBA Stand-sit: SBA sink-Chair: SBA Chair-sink: SBA BATHING: standing at sink with FWW and min vc Upper Body: (I) face, (B) UE and abdomen with min vc and SBA Lower Body: (I) to (B) knees with min (A) DRESSING: Upper Extremity: (I) don and doffing hospital gown TOILETING: Device: toilet Assist: (I) toileting hygiene BALANCE: Static sitting Normal Dynamic Sitting Normal ASSESSMENT: Patient is a 70-year-old male referred to occupational therapy services with diagnosis of glioblastoma multiform S/P partial frontal lobectomy with Optune device started just last week and on oral chemotherapy, acute kidney injury hospitalized on 05/12/2020 - 05/14/2020 at [facility], BPH, Essential hypertension, GERD, Gout, HLD, squamous cell CA of neck, previous tobacco abuse. He is dx at ED with gram-negative bacteremia, cellulitis of right leg, history of DVT, and glioblastoma multiform.Pt was seen for 4 skilled OT sessions. During his time he did transfer to [employer] with PT/OT provided as pt tolerated. Pt denied OT services a couple times due to fatigue but when participating was an active participant that worked towards his functional (I). Pt was discharged home and medically cleared per MD on 06/04/20. GOALS 1. Grooming- Sitting on side of the bed, (I) with brushing teeth- met 2. Dressing- sitting on side of bed pt is mod (I) with don and doffing (B) socks, min (A) with don and doffing hospital gown- not met 3. Bathing- sitting on side of the bed with max (A) set up/clean up (I) with UE, mod (A) LE- met 4. Toileting- on commode min (A)- met 5. Eating- (I)- met PLAN OF CARE/TREATMENT PLAN: Discharge from skilled OT services. Pt was discharged to return home on 06/04/20 DISCHARGE RECOMMENDATIONS Based on pts current level of function, OT recommends that pt return home with services. TREATMENT TIME/MINUTES/CODES N/A Georgia Rose OTR/L [facility]
--- NOTE | 2020-06-05 08:37 | INDS_ITS ---
Date of service: 06/05/20 Time of Service: 08:37 PT Notes Visit Reasons: PSEUDOMONAS BACTEREMIA CELLULITUS Inpatient Physical Therapy Swing Bed 1 Progress Note Date: 06/05/2020 Dates of Service: 05/24/2020 through 06/03/2020 Referring Doctor: Karsten Mckay MD PT Orders: PT CONSULT: Non-urgent Precautions: Fall. Standard. Activity as tolearated. Patient Profile/Admitting Diagnosis: Chad converts to swing bed level 1 as of 05/25/2020 and is being evaluated today for continued PT services. He is 70-year-old male with diagnosis of glioblastoma multiforme S/P partial frontal lobectomy with Optune device started just last week and on oral chemotherapy, acute kidney injury hospitalized on 05/12/2020 - 05/14/[address] [facility], BPH, Essential hypertension, GERD, Gout, HLD, squamous cell CA of neck, previous tobacco abuse. He is diagnosed on admission with gram-negative bacteremia, cellulitis of right leg, history of DVT, and glioblastoma multiforme (diagnosed early part of this year) and has just received hi Optune device last week. A podiatry consult has been requested by Dr. Mckay today to address ensure that all issues are addressed. Subjective: NT. See most recent PHARMACY SCHEDULER notes. Objective: General Observation: NT. See most recent PHARMACY SCHEDULER notes. Mental Status: NT. See most recent PHARMACY SCHEDULER notes. Pain: NT. See most recent PHARMACY SCHEDULER notes. ROM: Right Upper Extremity: Shoulder Flexion WFL. Shoulder abduction WFL. Elbow flexion WFL. Wrist flexion WFL. Functional opening and closing of hand WFL. Left Upper Extremity: Shoulder Flexion WFL. Shoulder abduction WFL. Elbow flexion WFL. Wrist flexion WFL. Functional opening and closing of hand WFL. Right Lower Extremity: Hip flexion WFL. Hip abduction WFL. Knee flexion WFL. Ankle dorsiflexion about 10 degrees beyond neutral. Ankle plantarflexion WFL. Left Lower Extremity: Hip flexion WFL. Hip abduction WFL. Knee flexion WFL. Ankle dorsiflexion about 10 degrees beyond neutral. Ankle plantarflexion WFL. Strength: Right Upper Extremity: Shoulder flexors 4-/5. Shoulder abductors 4-/5. Elbow flexors 4-/5. Elbow extensors 4-/5. [employer] Operator strong. Left Upper Extremity: Shoulder flexors 4-/5. Shoulder abductors 4-/5. Elbow flexors 4-/5. Extensors 4-/5. Chief [employer] Operator strong. Right Lower Extremity: Hip flexors 3+/5. Hip abductors 3+/5. Knee flexors 4-/5. Knee extensors 3+/5. Ankle dorsiflexors 3-/5. Ankle plantarflexors 4/5. Left Lower Extremity:Hip flexors 4-/5. Hip abductors 4-/5. Knee flexors 4-/5. Knee extensors 4-/5. Ankle dorsiflexors 4-/5. Ankle plantarflexors 4/5. Sensation: Intact throughout B lower extremities Bed Mobility/Transfers: Sit to stand independent, requires use of front wheeled walker for stability Stand to sit independent, requires use of front wheeled walker for stability Bed to chair supervision, requires use of front wheeled walker for stability Chair to bed supervision, requires use of front wheeled walker for stability Gait: 300 feet using front wheeled walker with full weight bearing on bilateral lower extremities requiring standby assist. Mild shortness of breath observed at end of activity, subsided with rest. Balance: Static Sitting: Normal Dynamic Sitting: Normal Static Standing: Fair Dynamic Standing: Fair 4-Stage Balance Test: Able to perform feet together for 10 seconds. Unable to perform positions 2-4 safely indicating continued risk for falls and strict need to use FWW for all mobility ADL performance. Assessment: Chad continues to demonstrate the need for a front wheeled walker for all mobility ADL performance, generalized weakness to both lower extremities with the right more affected than the left, impaired balance, difficulty with walking, and increased fall risk due to pre-existing glioblastoma multiforme along with family admitting diagnoses. Chad converted to swing bed level 1 as of 05/25/2020 and is being seen today for continued PT services. He is 70-year-old male with diagnosis of glioblastoma multiforme S/P partial frontal lobectomy with Optune device started just last week and on oral chemotherapy, acute kidney injury hospitalized on 05/12/2020 - 05/14/[address] [facility], BPH, Essential hypertension, GERD, Gout, HLD, squamous cell CA of neck, previous tobacco abuse. He is diagnosed on admission with gram-negative bacteremia, cellulitis of right leg, history of DVT, and glioblastoma multiforme (diagnosed early part of this year). Continued impairment level findings: Lower extremity weakness with R>>L Poor balance Decreased activity tolerance/SOB Decreasing swelling to B legs Venous stasis ulcer to dorsum of R foot Blister on distal sural area on the R Continued functional limitations: 1. Inability to safely ambulate without assistive device and physical assistance 2. Increase completion time for mobility ADL performance 3. Increased fall risk 4. Inability to negotiate steps alone safely Goals: Goals X1 week 1. Supine-Sit independent MET 2. Sit-Supine independent MET 3. Sit-Stand independent MET 4. Stand-Sit independent MET 5. Bed-Chair independent NOT MET 6. Chair-Bed independent NOT MET 7. Gait 300 feet with walker, independent NOT MET 8. Stairs 10, close supervision, with rail NOT MET 9. Independent with home exercise program. NOT MET 10. Will demonstrate maintenance of all 4 positions in the 4-stage balance test for 10 seconds each in order to reduce fall risk NOT MET DISCHARGE RECOMMENDATIONS: Patient will benefit from resumption of home health PT services in order to progress mobility level using FWW, assess home safety, identify additional equipment needs, and establish a functional maintenance program that will increase ability of patient to remain at home. TREATMENT CODE/TIME: NC. Thank you for the opportunity to participate in the care of this patient. Chinyere Holbrook PT, DPT, CLT [facility] [place], [place]
== END 2020-06-04 13:31 | disposition home or self-care (01) | DRG 872 ==
PROVIDERS: Internal Medicine; Nurse Practitioner Acute Care; Podiatrist; Admitting Provider Family Medicine; PCP Emergency Medicine; Visit Provider Family Medicine
DX: A41.52 Sepsis due to Pseudomonas (principal); L03.115 Cellulitis of right lower limb; C71.9 Malignant neoplasm of brain, unspecified; L97.218 Non-pressure chronic ulcer of right calf with other specified severity; T83.9XXA Unspecified complication of genitourinary prosthetic device, implant and graft, initial encounter; Z86.718 Personal history of other venous thrombosis and embolism; Z79.01 Long term (current) use of anticoagulants; I10 Essential (primary) hypertension; K21.9 Gastro-esophageal reflux disease without esophagitis; M10.9 Gout, unspecified; E78.5 Hyperlipidemia, unspecified; Z87.891 Personal history of nicotine dependence; N40.1 Benign prostatic hyperplasia with lower urinary tract symptoms; H35.30 Unspecified macular degeneration; E66.9 Obesity, unspecified; J30.9 Allergic rhinitis, unspecified; B96.5 Pseudomonas (aeruginosa) (mallei) (pseudomallei) as the cause of diseases classified elsewhere; R31.0 Gross hematuria; I83.012 Varicose veins of right lower extremity with ulcer of calf; I87.2 Venous insufficiency (chronic) (peripheral); W07.XXXA Fall from chair, initial encounter; Y92.239 Unspecified place in hospital as the place of occurrence of the external cause; R51.9 Headache, unspecified; Z51.5 Encounter for palliative care
CPT/HCPCS: 97597; 36415; 80048; 80053; 85027; 85652; 86850; 86900; 86901; 97110; 97163; 97166; 97530; 97535; 99232; 99233; 99252; 99304; 99305; 99306; 99308; 99309; 99316; NC; 70450; 72125; 81003; 81015; 84132; 85014; 85018; 86140; 87086; J0744; J2543; J8540

== ENCOUNTER 2020-10-27 20:22 | Outpatient (REF) | payer MEDICARE, OTHER, SELFPAY ==
[2020-10-27 21:06] LABS: Bilirubin Negative (Negative); Blood Negative (Negative); Clarity Clear (Clear); Glucose Negative (Negative); Ketones Negative (Negative); Leukocyte Esterase Small (Negative); Nitrite Negative (Negative); Urobilinogen 0.2 EU/dL (Up TO 0.2); pH 5.5 (5-8)
[2020-10-27 21:15] LABS: Bacteria Many HPF (Negative); C & S Indicated? C&S Done As Ordered; Casts Negative LPF (Negative); Crystals Negative HPF (Negative); Epithelial Cells Rare HPF (Negative); Mucus Negative (Negative); RBC Negative HPF (0-2); WBC 20-50 HPF (0-5)
== END 2020-10-27 20:23 | disposition home or self-care (01) ==
LOC: LBN 20:22
PROVIDERS: PCP Emergency Medicine; Visit Provider Family Medicine
DX: R30.0 Dysuria (principal)
CPT/HCPCS: 87077; 81003; 81015; 87086; 87186

== ENCOUNTER 2020-11-16 17:04 | Outpatient (REF) | payer MEDICARE, OTHER, SELFPAY | END 2020-11-16 17:05 | disposition home or self-care (01) | LOC: LBN 17:04 | PROVIDERS: PCP Emergency Medicine; Visit Provider Urology | DX: R31.0 Gross hematuria (principal) | CPT/HCPCS: 87077; 87086; 87186 ==